=== PATIENT | female | born 1930 | race Caucasian/White ===

== ENCOUNTER 2017-10-17 23:57 | Inpatient (IN) | END 2017-11-04 14:45 | disposition home or self-care (01) | DRG 668 ==

== ENCOUNTER 2019-03-16 16:56 | Inpatient (IN) | payer MEDICARE, OTHER ==
[~2019-03-16] VITALS: Ht 315 cm; Wt 57.0 kg
[~2019-03-16 16:56] MED LIST: ATEN-51 PO; ATOR10TA65 PO; CARI350T29 PO; DIGO125T PO; DULO60CA59 PO; FERR256T PO; LORA10TA3 PO; LOSA100T15 PO; METF100010 PO; PANT40TA4 PO; PREG150C PO; SITA100T11 PO
[2019-03-16] MEDS ORDERED: SOD CHLORIDE 0.9% 1,000 ML IV STA (18:00)
--- NOTE | 2019-03-16 18:54 | ERD ---
ER Documentation Chief Complaint Chief Complaint increased conf p [facility] fall today, hit back of head. no droop/ equal strengt HPI There is an 88-year-old female who presents to the emergency room complaining of generalized weakness for approximately 2 weeks. The patient is now having increasing falls while at home. She lives at home alone. The patient is now had 3 falls in the past 24 to 48 hours. She states that she hit her head but did not lose consciousness. The patient does not take anticoagulants. She has chronic right hip pain that is unchanged. She denies any chest pain or shortness of breath no dysuria urgency or frequency. Primary care physician told her to come to the emergency room today. ROS All systems reviewed and are negative except as per history of present illness. Medications Home Meds Reported Medications Loratadine* (Loratadine*) 10 Mg Tablet, 10 MG PO DAILY, #30 TAB 10/17/17 Carisoprodol* (Carisoprodol*) 350 Mg Tablet, 350 MG PO HS PRN for MUSCLE SPASMS, TAB 10/17/17 Digoxin* (Digitek*) 125 Mcg Tablet, 0.125 MG PO DAILY, TAB 18 Ferrous Gluconate (Iron) Unknown Strength Tablet, 1 TAB PO DAILY, TAB 18 Pregabalin* (Lyrica*) 150 Mg Capsule, 150 MG PO BID, CAP 10/17/17 Pantoprazole* (Pantoprazole*) 40 Mg Tablet.dr, 40 MG PO AC BREAKFAST, TAB 10/17/17 Duloxetine Hcl* (Duloxetine Hcl*) 60 Mg Capsule.dr, 60 MG PO BID, #30 CAP 18 Atorvastatin Calcium (Atorvastatin Calcium) 10 Mg Tablet, 10 MG PO QHS, #30 TAB 18 Atenolol* (Atenolol*) 25 Mg Tablet, 25 MG PO DAILY, #30 TAB 18 Losartan Potassium* (Losartan Potassium*) 100 Mg Tablet, 100 MG PO DAILY, TAB 18 Sitagliptin* (Januvia*) 100 Mg Tablet, 100 MG PO BID, #30 TAB 18 Metformin Hcl* (Metformin Hcl*) 1,000 Mg Tablet, 1000 MG PO WITH BREAKFAST DINNE, #60 TAB 10/17/17 Allergies Allergies: Coded Allergies: Penicillins (Unverified Allergy, Unknown, 10/17/17) PMhx/Soc History of Surgery: Yes (RIGHT HIP SX,RIGHT KNEE ARTHROPLASTY) Anesthesia Reaction: No Hx Neurological Disorder: Yes (NEUROPATHY) Hx Respiratory Disorders: No Hx Cardiac Disorders: Yes (HTN) Hx Psychiatric Problems: No Hx Miscellaneous Medical Probl: Yes (WEAKNESS,PEROIDS OF CONFUSION) Hx Alcohol Use: No Hx Substance Use: No Hx Tobacco Use: No Smoking Status: Never smoker FmHx Family History: No diabetes Physical Exam Vitals Vital Signs Date Temp Pulse Resp B/P (MAP) Pulse Ox O2 O2 Flow FiO2 Time Delivery Rate 03/16/19 97.9 65 16 160/70 99 17:06 (100) Physical Exam Airway is intact Bilateral breath sounds Strong distal pulses No obvious deficits General: Well developed, well nourished, no acute distress Head: Normocephalic, atraumatic Eyes: Pupils equally reactive, EOM intact ENT: Moist mucous membranes Neck: Supple, no lymphadenopathy, No midline tenderness, deformities, step-offs to the cervical spine, full active and passive range of motion without midline pain. Respiratory: Lungs clear bilaterally, no distress, no chest wall tenderness, no crepitus Cardiovascular: RRR, no murmurs, rubs, or gallops Abdominal: Soft, non-tender, non-distended, no peritoneal signs, pelvis is stable : Deferred MSK: No edema, no unilateral swelling, 5/5 strength, no midline tenderness deformities or step-offs to the thoracolumbar spine Neurologic: Alert and oriented, moving all extremities, normal speech, no focal weakness, no cerebellar signs Skin: No ecchymoses or bruising to the chest or abdomen Psych: Normal mood Result Diagram: 03/16/19181803/16/191818 Results 24 hrs Laboratory Tests Test 03/16/19 18:17 03/16/19 18:19 Urine Color YELLOW Urine Clarity CLOUDY Urine pH 5.0 Urine Specific [place] 1.021 Urine Ketones NEGATIVE mg/dL Urine Nitrite NEGATIVE mg/dL Urine Bilirubin 2+ mg/dL Urine Urobilinogen NEGATIVE mg/dL Urine Leukocyte Esterase TRACE [place]/ul Urine Microscopic RBC 1 /HPF Urine Microscopic WBC 5 /HPF Urine Squamous Epithelial Cells MODERATE /HPF Urine Bacteria FEW /HPF Urine Mucus FEW /HPF Urine Hemoglobin NEGATIVE mg/dL Urine Glucose NEGATIVE mg/dL Urine Total Protein NEGATIVE mg/dl White Blood Count 9.5 10^3/ul Red Blood Count 4.20 10^6/ul Hemoglobin 12.2 g/dl Hematocrit 37.8 % Mean Corpuscular Volume 90.0 fl Mean Corpuscular Hemoglobin 29.0 pg Mean Corpuscular Hemoglobin Concent 32.3 g/dl Red Cell Distribution Width 14.0 % Platelet Count 403 10^3/UL Mean Platelet Volume 10.1 fl Immature Granulocytes % 0.400 % Neutrophils % 74.3 % Lymphocytes % 17.5 % Monocytes % 5.7 % Eosinophils % 0.8 % Basophils % 1.3 % Nucleated Red Blood Cells % 0.0 /100WBC Immature Granulocytes # 0.040 10^3/ul Neutrophils # 7.1 10^3/ul Lymphocytes # 1.7 10^3/ul Monocytes # 0.5 10^3/ul Eosinophils # 0.1 10^3/ul Basophils # 0.1 10^3/ul Nucleated Red Blood Cells # 0.0 10^3/ul Sodium Level 144 mmol/L Potassium Level 5.5 mmol/L Chloride Level 105 mmol/L Carbon Dioxide Level 25 mmol/L Anion Gap 14 Blood Urea Nitrogen 44 mg/dl Creatinine 2.28 mg/dl Est Glomerular Filtrat Rate mL/min mL/min Glucose Level 146 mg/dl Calcium Level 10.5 mg/dl Total Bilirubin 0.2 mg/dl Direct Bilirubin 0.00 mg/dl Indirect Bilirubin 0.2 mg/dl Aspartate Amino Transf (AST/SGOT) 16 IU/L Alanine Aminotransferase (ALT/SGPT) 12 IU/L Alkaline Phosphatase 97 IU/L Troponin I < 0.012 ng/ml Total Protein 8.3 g/dl Albumin 4.5 g/dl Globulin 3.80 g/dl Albumin/Globulin Ratio 1.18 Current Medications Medications Dose Sig/Carlos Start Time Status Last (Trade) Ordered Route PRN Stop Time Admin Dose Reason Admin Sodium 1,000 ml @ Q1H STAT 03/16/19 DC 03/16/19 Chloride 1,000 mls/hr IV 18:00 03/16/19 18:17 18:59 Ondansetron 4 mg BRIDGE ORDER 03/16/19 HCl (Zofran PRN IV 20:00 03/17/19 Inj) NAUSEA/VOMITI 19:59 NG 650 mg ER BRIDGE 03/16/19 Acetaminophen PRN PO 20:00 03/17/19 (Tylenol .MILD PAIN 19:59 Tab) 1-3 OR TEMP Procedures/MDM EKG, MONITORS, & DIAGNOSTIC IMAGING: EKG: I reviewed and interpreted a 12-lead EKG. Rhythm: Normal sinus rhythm ST Changes: No contiguous ST segment elevations T waves: No contiguous T wave inversions Impression: [No evidence of acute cardiac ischemia] Chest x-ray: I reviewed and interpreted a 1 view of the chest Mediastinum: No enlargement Cardiac silhouette: No cardiomegaly Airspace: Clear lung ramirez bilaterally without evidence of pneumothorax Bones: No evidence of fracture CT brain: PENDING LAB INTERPRETATION: I reviewed the laboratory testing and it shows acute renal insufficiency, prerenal MEDICAL DECISION MAKING: The patient presents with increased frequency of falls. This appears to be secondary to generalized decline rather than acute issue. The patient has no focal deficits on neurologic examination. Unfortunately the patient lives home alone. I am concerned about her living situation given the frequency of falls. I will discussed the case with her primary care physician and possibly recommend inpatient hospitalization for closer monitoring and possible home health versus rehab assignment. ER COURSE: * Laboratory testing reveals dehydration with acute renal insufficiency, lavatory testing suggest prerenal. The patient was given IV fluids. Potassium is only mildly elevated at 5.5. Should be fine for medical surgical admission. No EKG changes. * CT brain is pending at this time to be followed by oncoming ER physician and admitting team. CONSULTATION: [None] DISPOSITION PLAN: Accepting care team and consultations: I discussed the current laboratory data, diagnostic imaging and emergency care provided. Admitting team: Dr. Sandra on-call for patient's primary care physician Admitting team indication: Insurance directed Departure Diagnosis: Primary Impression: Generalized weakness Additional Impressions: Acute renal insufficiency Dehydration, moderate Condition: Stable JOSEFA MCKENZIE MD Mar 16, 2019 18:54
[2019-03-16] MEDS ORDERED: ONDANSETRON 4 MG INJ IV PRN ×2 (20:00→22:30)
[2019-03-16] MEDS ORDERED: ACETAMINOPHEN 325 MG TAB PO PRN ×2 (20:00→22:30)
[2019-03-16] MEDS ORDERED: MAGNESIUM HYDROXIDE 30ML CUP PO PRN (22:30)
[2019-03-16] MEDS ORDERED: CARISOPRODOL 350 MG TAB PO PRN (22:30)
[2019-03-16] MEDS ORDERED: DOCUSATE SODIUM 100 MG CAP PO PRN (22:30)
[2019-03-16] MEDS ORDERED: BISACODYL 10 MG SUPP PR PRN (22:30)
[2019-03-16] MEDS ORDERED: NITROGLYCERIN (SL) 0.4 MG TAB SL PRN (22:30)
[2019-03-16] MEDS ORDERED: NACL 0.9% 3 ML SYG IV SCH (22:30)
[2019-03-17] MEDS ORDERED: LEVOFLOXACIN 500 MG TAB PO ONE (06:00)
[2019-03-17] MEDS: PANTOPRAZOLE (EC) 40 MG TAB PO SCH (06:45)
[2019-03-17] MEDS: SOD CHLORIDE 0.9% 1,000 ML IV SCH ×4 (06:45→17:59)
[2019-03-17] MEDS ORDERED: GLUCAGON 1 MG INJ IM PRN (08:00)
[2019-03-17] MEDS ORDERED: DEXTROSE 50% 50 ML SYRINGE IV PRN ×2 (08:00)
[2019-03-17] MEDS ORDERED: MAGNESIUM SULFATE 2 GM/50 ML 50 ML IVPB ONE (08:00)
[2019-03-17] MEDS ORDERED: GLUCOSE GEL 15 GRAM TUBE PO PRN ×2 (08:00)
[2019-03-17] MEDS: INSULIN ASPART [NOVOLOG] 3 ML PEN SC SCH ×4 (08:00→20:39)
[2019-03-17] MEDS ORDERED: GLUCOSE GEL 15 GRAM TUBE BUCCAL PRN (08:00)
[2019-03-17] MEDS: HEPARIN 5,000 UNIT/1 ML VIAL SC SCH ×2 (08:32→20:46)
[2019-03-17] MEDS: LINAGLIPTIN 5 MG TABLET PO SCH (08:33)
[2019-03-17] MEDS: LORATADINE 10 MG TAB PO SCH (08:33)
[2019-03-17] MEDS: DULOXETINE 30 MG CAP DR PO SCH ×2 (08:34→20:32)
[2019-03-17] MEDS: AMLODIPINE 2.5 MG TAB PO SCH ×2 (08:34→20:33)
[2019-03-17] MEDS: PREGABALIN 75 MG CAP PO SCH ×2 (08:35→20:32)
[2019-03-17] MEDS ORDERED: LOSARTAN 50 MG TAB PO SCH (09:00)
[2019-03-17] MEDS ORDERED: LEVOFLOXACIN 500 MG TAB PO SCH (09:00)
--- NOTE | 2019-03-17 09:13 | HP ---
Date/Time of Note Date/Time of Note DATE: 03/17/19 TIME: 08:52 Assessment/Plan VTE Prophylaxis SCD applied (from Nsg): Yes Pharmacological prophylaxis: heparin Lines/Catheters IV Catheter Type (from Nrsg): Saline Lock Assessment/Plan Problems: (1) Digoxin toxicity Status: Acute Comment: Level nearly twice upper limit of normal. Likely responsible for much of the neurological symptoms pt. has been experiencing. Per my reading and d/w pharmacy, no need for digibind unless pt. w/ cardiac symptoms including EKG changes and bradycardia. We will monitor w/ tele, serial EKG's daily digoxin level. Cardiology consult. Low threshold to give digibind should it be necessary. Qualifiers: Encounter type: initial encounter Injury intent: accidental or unintentional Qualified Codes: T46.0X1A - Poisoning by cardiac-stimulant glycosides and drugs of similar action, accidental (unintentional), initial encounter (2) Dehydration, moderate Status: Acute Comment: NS bolus given in ER and pt. on NS at 100 mL per hour. Will monitor. (3) Hyperkalemia Onset Date: ~ 03/2019 Status: Resolved Comment: Level was 5.5 but has come down w/ hydration. (4) Hypercalcemia Status: Resolved Comment: Was 10.5 but has come down w/ hydration (5) Acute renal insufficiency Status: Acute Comment: Improving w/ hydration. Previously presented w/ ARF so not certain what this patient's baseline creatinine is. (6) Generalized weakness Status: Acute Comment: Likely due to digoxin toxicity. Will order PT and monitor as digoxin level decreases. If this continues, may need ARU or transfer to SNF. (7) Frequent falls Status: Acute Comment: Likely due to digoxin toxicity. Will order PT and monitor as digoxin level decreases. If this continues, may need ARU or transfer to SNF. 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 Cont. linagliptin. Carb controlled diet. Monitor glucose. Add insulin if hyperglycemic. (9) Hypertension Status: Chronic Comment: BP elevated. Hold beta-ge[place] given digoxin toxicity. Will start amlodipine 2.5 mg bid (10) Hyperlipidemia Status: Chronic Comment: Cont. statin (11) Lumbar stenosis with neurogenic claudication Status: Chronic Comment: Cont. lyrica, duloxetine, carisoprodol prn (12) Major depressive disorder, recurrent, in full remission Status: Chronic Comment: cont. duloxetine (13) Left maxillary sinusitis Status: Acute Comment: Seen on CT head. Will add levofloxacin x 1 week. Cont. loratadine and start fluticasone nasal spray 2 sprays in each nostril daily. (14) Allergic rhinitis Status: Chronic Comment: Cont. loratadine and start fluticasone nasal spray 2 sprays in each nostril daily. Result Diagram: 03/17/19 0603 03/17/19 0603 Results 24hrs Laboratory Tests Test 03/16/19 18:17 03/16/19 18:19 03/17/19 06:03 03/17/19 08:29 Urine Color YELLOW Urine Clarity CLOUDY A Urine pH 5.0 Urine Specific [place] 1.021 Urine Ketones NEGATIVE Urine Nitrite NEGATIVE Urine Bilirubin 2+ H Urine Urobilinogen NEGATIVE Urine Leukocyte Esterase TRACE A Urine Microscopic RBC 1 Urine Microscopic WBC 5 Urine Squamous MODERATE Epithelial Cells Urine Bacteria FEW A Urine Mucus FEW A Urine Hemoglobin NEGATIVE Urine Glucose NEGATIVE Urine Total Protein NEGATIVE Digoxin Level 3.8 *H 3.8 *H White Blood Count 9.5 # 7.2 # Red Blood Count 4.20 # 3.84 L Hemoglobin 12.2 # 11.1 L Hematocrit 37.8 # 34.0 L Mean Corpuscular Volume 90.0 88.5 Mean Corpuscular 29.0 28.9 L Hemoglobin Mean Corpuscular 32.3 32.6 Hemoglobin Concent Red Cell Distribution 14.0 14.0 Width Platelet Count 403 324 Mean Platelet Volume 10.1 10.2 Immature Granulocytes % 0.400 0.300 Neutrophils % 74.3 61.6 Lymphocytes % 17.5 25.0 Monocytes % 5.7 9.5 Eosinophils % 0.8 1.9 Basophils % 1.3 1.7 Nucleated Red Blood 0.0 0.0 Cells % Immature Granulocytes # 0.040 H 0.020 Neutrophils # 7.1 4.5 Lymphocytes # 1.7 1.8 Monocytes # 0.5 0.7 Eosinophils # 0.1 0.1 Basophils # 0.1 0.1 Nucleated Red Blood 0.0 0.0 Cells # Sodium Level 144 145 H Potassium Level 5.5 H 5.1 Chloride Level 105 110 Carbon Dioxide Level 25 26 Anion Gap 14 H 9 # Blood Urea Nitrogen 44 H 38 H Creatinine 2.28 H 1.70 H Est Glomerular Filtrat Rate mL/min Glucose Level 146 95 # Calcium Level 10.5 H 9.9 Total Bilirubin 0.2 0.3 Direct Bilirubin 0.00 0.00 Indirect Bilirubin 0.2 0.3 Aspartate Amino 16 17 Transf (AST/SGOT) Alanine 12 L 12 L Aminotransferase (ALT/SG PT) Alkaline Phosphatase 97 74 Troponin I < 0.012 Total Protein 8.3 H 7.1 # Albumin 4.5 3.9 Globulin 3.80 H 3.20 Albumin/Globulin Ratio 1.18 1.21 Hemoglobin A1c 5.2 Magnesium Level 1.4 L Triglycerides Level 168 H Cholesterol Level 126 LDL Cholesterol, 52 Calculated HDL Cholesterol 40 Cholesterol/HDL Ratio 3.1 Thyroid Stimulating 2.030 Hormone (TSH) Bedside Glucose 85 HPI/ROS Admit Date/Time Admit Date/Time 03/16/2019 @ 1800 Hx of Present Illness 88 y/o C F w/ h/o T2DM, HTN, hyperlipidemia, depression, allergic rhinitis, PUD, atrial tachycardia, acute renal failure, anemia, leg ulcer, cellulitis, MRSA (+), in [facility] until last several weeks when she began to experience gradual decline. Increase in falling at home. Intermittently confused. Yesterday daughter called and stated pt. was altered and hallucinating. Recommended to bring pt. to ER. In ER pt. not hallucinating or confused. However, w/ h/o re cent falls it was recommended pt. be admitted for PT, possible ARU vs. SNF care. However, subsequently it was found that digoxin level was 3.8 (ULN 2.0). Pt. upgraded to tele and has remained in ER waiting for bed space. ROS Constitutional: fatigue Eyes: no complaints ENT: no complaints Respiratory: no complaints Cardiovascular: no complaints Gastrointestinal: no complaints Genitourinary: no complaints Musculoskeletal: no complaints Neurologic: confusion (intermittent and mild), focal-weakness (falls) PMH/Family/Social Past Medical History Medical History: diabetes, high cholesterol, hypertension, peptic ulcer disease, renal disease, urinary tract infection, other (allergic rhinitis, spinal stenosis, depression) Medications Current Medications Ondansetron HCl (Zofran Inj) 4 mg BRIDGE ORDER PRN IV NAUSEA/VOMITING; Start 03/16/19 at 20:00; Stop 03/17/19 at 19:59 Acetaminophen (Tylenol Tab) 650 mg ER BRIDGE PRN PO .MILD PAIN 1-3 OR TEMP; Start 03/16/19 at 20:00; Stop 03/17/19 at 19:59 Atorvastatin Calcium (Lipitor) 10 mg QHS PO ; Start 03/17/19 at 21:00 Carisoprodol (Soma) 350 mg HS PRN PO MUSCLE SPASMS; Start 03/16/19 at 22:30 Duloxetine HCl (Cymbalta) 60 mg BID PO Last administered on 03/17/19at 08:34; Admin Dose 60 MG; Start 03/17/19 at 09:00 Loratadine (Claritin) 10 mg DAILY PO Last administered on 03/17/19 08:33; Admin Dose 10 MG; Start 03/17/19 at 09:00 Losartan Potassium (Cozaar) 100 mg DAILY PO Last administered on 03/17/19at 08:34; Admin Dose 100 MG; Start 03/17/19 at 09:00 Pantoprazole (Protonix Tab) 40 mg AC BREAKFAST PO Last administered on 03/17/19at 06:45; Admin Dose 40 MG; Start 03/17/19 at 07:00 Pregabalin (Lyrica) 150 mg BID PO Last administered on 03/17/19at 08:35; Admin Dose 150 MG; Start 03/17/19 at 09:00 Linagliptin (Tradjenta) 5 mg DAILY PO Last administered on 03/17/19at 08:33; Admin Dose 5 MG; Start 03/17/19 at 09:00 Sodium Chloride 1,000 ml @ 100 mls/hr Q10H IV Last administered on 03/17/19at 06:45; Admin Dose 100 MLS/HR; Start 03/16/19 at 22:18 IV Flush (NS 3 ml) 3 ml PER PROTOCOL IV ; Start 03/16/19 at 22:30 Ondansetron HCl (Zofran Inj) 4 mg Q6H PRN IV NAUSEA/VOMITING; Start 03/16/19 at 22:30 Nitroglycerin (Nitroglycerin (Sl Tab) 0.4 Mg) 1 tab Q5M PRN SL .CHEST PAIN; Start 03/16/19 at 22:30 Acetaminophen (Tylenol Tab) 650 mg Q6H PRN PO .PAIN 1-3 OR TEMP; Start 03/16/19 at 22:30 Acetaminophen/ Hydrocodone Bitart ([place] (5/325)) 1 tab Q6H PRN PO .PAIN 4-6; Start 03/16/19 at 22:30 Acetaminophen/ Hydrocodone Bitart ([place] (5/325)) 2 tab Q6H PRN PO .PAIN 7-10; Start 03/16/19 at 22:30 Docusate Sodium (Colace) 100 mg Q12H PRN PO .CONSTIPATION; Start 03/16/19 at 22:30 Magnesium Hydroxide (Milk Of Mag) 30 ml DAILY PRN PO .CONSTIPATION; Start 03/16/19 at 22:30 Bisacodyl (Dulcolax Supp) 10 mg DAILY PRN OR .CONSTIPATION; Start 03/16/19 at 22:30 Heparin Sodium (Porcine) (Heparin (5000 Units/1ml)) 5,000 unit Q12 SC Last administered on 03/17/19at 08:32; Admin Dose 5,000 UNIT; Start 03/17/19 at 09:00 Levofloxacin (Levaquin) 250 mg DAILY@06 PO ; Start 03/18/19 at 06:00; Stop 03/24/19 at 05:59 Insulin Aspart (Novolog Insulin Pen) NOVOLOG *MILD* ALGORITHM WITH MEALS BEDTIME SC ; Start 03/17/19 at 08:00 Magnesium Sulfate 50 ml @ 25 mls/hr ONCE ONCE IVPB Last administered on 03/17/19at 08:06; Admin Dose 25 MLS/HR; Start 03/17/19 at 08:00; Stop 03/17/19 at 09:59 Amlodipine Besylate (Norvasc) 2.5 mg BID PO Last administered on 03/17/19at 08:34; Admin Dose 2.5 MG; Start 03/17/19 at 09:00 Miscellaneous Information 1 ea NOTE XX ; Start 03/17/19 at 08:00 Glucose (Glutose) 15 gm Q15M PRN PO DECREASED GLUCOSE; Start 03/17/19 at 08:00 Glucose (Glutose) 22.5 gm Q15M PRN PO DECREASED GLUCOSE; Start 03/17/19 at 08:00 Dextrose (D50w Syringe) 25 ml Q15M PRN IV DECREASED GLUCOSE; Start 03/17/19 at 08:00 Dextrose (D50w Syringe) 50 ml Q15M PRN IV DECREASED GLUCOSE; Start 03/17/19 at 08:00 Glucagon (Glucagen) 1 mg Q15M PRN IM DECREASED GLUCOSE; Start 03/17/19 at 08:00 Glucose (Glutose) 15 gm Q15M PRN BUCCAL DECREASED GLUCOSE; Start 03/17/19 at 08:00 Coded Allergies: Penicillins (Unverified Allergy, Unknown, 10/17/17) Past Surgical History Past Surgical Hx: other (total abdominal hysterectomy, right hip surgery, open knee surgery for an infection, LLE ulcer, bladder suspension 3 times, L hip fracture repair, cataracts) Family History Significant Family History: heart disease, diabetes, hypertension, other (blood clot) Social History , 3 children, 2 living Alcohol Use: occasionally Smoking Status: Never smoker Drug Use: none Exam/Review of Systems Vital Signs Vitals VS - Last 72 Hours, by Label Date Temp Pulse Resp B/P (MAP) Pulse Ox O2 O2 Flow FiO2 Time Delivery Rate 03/17/19 59 16 149/58 98 Room Air 08:35 (88) 03/17/19 98.1 58 16 161/68 97 Room Air 06:30 (99) 03/17/19 78 16 155/64 97 Room Air 04:38 (94) 03/17/19 60 16 164/64 98 Room Air 03:46 (97) 03/17/19 60 22 164/67 95 Room Air 00:00 (99) 03/16/19 63 20 153/61 99 Room Air 22:00 (91) 03/16/19 67 17 147/65 98 Room Air 21:00 (92) 03/16/19 97.9 67 16 164/77 99 Room Air 20:46 (106) 03/16/19 97.9 65 16 160/70 99 17:06 (100) Vital Signs Date Temp Pulse Resp B/P (MAP) Pulse Ox O2 O2 Flow FiO2 Time Delivery Rate 03/17/19 59 16 149/58 98 Room Air 08:35 (88) 03/17/19 98.1 06:30 Exam Constitutional: alert, oriented, frail Psych: no complaints, nl mood/affect Eyes: nl conjunctiva, EOMI, nl lids, nl sclera, PERRL ENMT: nl external ears & nose, nl lips & teeth, mucosa pink and moist Neck: supple, non-tender; No bruits, No masses, No thyromegaly Respiratory: clear to auscultation, normal air movement Cardiovascular: regular rate and rhythm, nl pulses; No edema, No murmurs/extra sounds, No rub Gastrointestinal: soft, nl liver, spleen, non-tender, bowel sounds; No mass, No rebound or guarding Musculoskeletal: nl extremities to inspection Extremities: normal pulses; No cyanosis, No clubbing, No edema Neurological: GUIDANCE SERVICES COORDINATOR II-XII intact, nl mental status (oriented x 3), nl speech, nl strength PASCUAL CORNELIUS MD Mar 17, 2019 09:04
[2019-03-17] MEDS: FLUTICASONE 0.05% 16 GM NAS SPRAY NASAL SCH (10:00)
--- NOTE | 2019-03-17 15:35 | CONS ---
Assessment/Plan Assessment/Plan Hospital Course (Demo Recall) Digoxin toxicity Acute kidney injury, improving Borderline blood pressure, improved Preserved ejection fraction History of atrial tachycardia Diabetes Patient presented with acute kidney injury, hyperkalemia and elevated digoxin level Renal function has improved Telemetry reviewed with no significant arrhythmias, blood pressure remained stable Will DC ARB at the current time Continue IV fluids as tolerated Continue on telemetry Consultation Date/Type/Reason Admit Date/Time 03/16/2019 @ 1800 Type of Consult Cardiology Reason for Consultation Elevated digoxin level Date/Time of Note DATE: 03/17/19 TIME: 15:30 Hx of Present Illness This is an 88-year-old female with past medical history of atrial tachycardia, labile blood pressure who presents with alterations in mental status and falls. History is obtained from the patient as well as ER doctor and nursing staff. There is question regarding altered mental status. I spoke to your doctor, patient was ambulating in the hallway to the bathroom with assistance. Patient denies any chest pain, shortness of breath or palpitations. She did have some dizziness yesterday but this has since resolved. 12 point review of systems was performed with all pertinent positives and negatives mentioned above and all else is negative Past Medical History Atrial tachycardia Medical History: high cholesterol, hypertension Home Meds Reported Medications Loratadine* (Loratadine*) 10 Mg Tablet, 10 MG PO DAILY, #30 TAB 10/17/17 Carisoprodol* (Carisoprodol*) 350 Mg Tablet, 350 MG PO HS PRN for MUSCLE SPASMS, TAB 10/17/17 Digoxin* (Digitek*) 125 Mcg Tablet, 0.125 MG PO DAILY, TAB 10/17/17 Ferrous Gluconate (Iron) Unknown Strength Tablet, 1 TAB PO DAILY, TAB 10/17/17 Pregabalin* (Lyrica*) 150 Mg Capsule, 150 MG PO BID, CAP 10/17/17 Pantoprazole* (Pantoprazole*) 40 Mg Tablet.dr, 40 MG PO AC BREAKFAST, TAB 10/17/17 Duloxetine Hcl* (Duloxetine Hcl*) 60 Mg Capsule.dr, 60 MG PO BID, #30 CAP 10/17/17 Atorvastatin Calcium (Atorvastatin Calcium) 10 Mg Tablet, 10 MG PO QHS, #30 TAB 10/17/17 Atenolol* (Atenolol*) 25 Mg Tablet, 25 MG PO DAILY, #30 TAB 10/17/17 Losartan Potassium* (Losartan Potassium*) 100 Mg Tablet, 100 MG PO DAILY, TAB 10/17/17 Sitagliptin* (Januvia*) 100 Mg Tablet, 100 MG PO BID, #30 TAB 10/17/17 Metformin Hcl* (Metformin Hcl*) 1,000 Mg Tablet, 1000 MG PO WITH BREAKFAST DINNE, #60 TAB 10/17/17 Medications Current Medications Ondansetron HCl (Zofran Inj) 4 mg BRIDGE ORDER PRN IV NAUSEA/VOMITING; Start 03/16/19 at 20:00; Stop 03/17/19 at 19:59 Acetaminophen (Tylenol Tab) 650 mg ER BRIDGE PRN PO .MILD PAIN 1-3 OR TEMP; Start 03/16/19 at 20:00; Stop 03/17/19 at 19:59 Atorvastatin Calcium (Lipitor) 10 mg QHS PO ; Start 03/17/19 at 21:00 Carisoprodol (Soma) 350 mg HS PRN PO MUSCLE SPASMS; Start 03/16/19 at 22:30 Duloxetine HCl (Cymbalta) 60 mg BID PO Last administered on 03/17/19at 08:34; Admin Dose 60 MG; Start 03/17/19 at 09:00 Loratadine (Claritin) 10 mg DAILY PO Last administered on 03/17/19 08:33; Admin Dose 10 MG; Start 03/17/19 at 09:00 Losartan Potassium (Cozaar) 100 mg DAILY PO Last administered on 03/17/19at 08:34; Admin Dose 100 MG; Start 03/17/19 at 09:00 Pantoprazole (Protonix Tab) 40 mg AC BREAKFAST PO Last administered on 03/17/19at 06:45; Admin Dose 40 MG; Start 03/17/19 at 07:00 Pregabalin (Lyrica) 150 mg BID PO Last administered on 03/17/19 08:35; Admin D ose 150 MG; Start 03/17/19 at 09:00 Linagliptin (Tradjenta) 5 mg DAILY PO Last administered on 03/17/19 08:33; Admin Dose 5 MG; Start 03/17/19 at 09:00 Sodium Chloride 1,000 ml @ 100 mls/hr Q10H IV Last administered on 03/17/19at 06:45; Admin Dose 100 MLS/HR; Start 03/16/19 at 22:18 IV Flush (NS 3 ml) 3 ml PER PROTOCOL IV ; Start 03/16/19 at 22:30 Ondansetron HCl (Zofran Inj) 4 mg Q6H PRN IV NAUSEA/VOMITING; Start 03/16/19 at 22:30 Nitroglycerin (Nitroglycerin (Sl Tab) 0.4 Mg) 1 tab Q5M PRN SL .CHEST PAIN; Start 03/16/19 at 22:30 Acetaminophen (Tylenol Tab) 650 mg Q6H PRN PO .PAIN 1-3 OR TEMP; Start 03/16/19 at 22:30 Acetaminophen/ Hydrocodone Bitart ([place] (5/325)) 1 tab Q6H PRN PO .PAIN 4-6; Start 03/16/19 at 22:30 Acetaminophen/ Hydrocodone Bitart ([place] (5/325)) 2 tab Q6H PRN PO .PAIN 7-10; Start 03/16/19 at 22:30 Docusate Sodium (Colace) 100 mg Q12H PRN PO .CONSTIPATION; Start 03/16/19 at 22:30 Magnesium Hydroxide (Milk Of Mag) 30 ml DAILY PRN PO .CONSTIPATION; Start 03/16/19 at 22:30 Bisacodyl (Dulcolax Supp) 10 mg DAILY PRN [place] .CONSTIPATION; Start 03/16/19 at 22:30 Heparin Sodium (Porcine) (Heparin (5000 Units/1ml)) 5,000 unit Q12 SC Last administered on 03/17/19at 08:32; Admin Dose 5,000 UNIT; Start 03/17/19 at 09:00 Levofloxacin (Levaquin) 250 mg DAILY@06 PO ; Start 03/18/19 at 06:00; Stop 03/24/19 at 05:59 Insulin Aspart (Novolog Insulin Pen) NOVOLOG *MILD* ALGORITHM WITH MEALS BEDTIME SC ; Start 03/17/19 at 08:00 Amlodipine Besylate (Norvasc) 2.5 mg BID PO Last administered on 03/17/19at 08:34; Admin Dose 2.5 MG; Start 03/17/19 at 09:00 Miscellaneous Information 1 ea NOTE XX ; Start 03/17/19 at 08:00 Glucose (Glutose) 15 gm Q15M PRN PO DECREASED GLUCOSE; Start 03/17/19 at 08:00 Glucose (Glutose) 22.5 gm Q15M PRN PO DECREASED GLUCOSE; Start 03/17/19 at 08:00 Dextrose (D50w Syringe) 25 ml Q15M PRN IV DECREASED GLUCOSE; Start 03/17/19 at 08:00 Dextrose (D50w Syringe) 50 ml Q15M PRN IV DECREASED GLUCOSE; Start 03/17/19 at 08:00 Glucagon (Glucagen) 1 mg Q15M PRN IM DECREASED GLUCOSE; Start 03/17/19 at 08:00 Glucose (Glutose) 15 gm Q15M PRN BUCCAL DECREASED GLUCOSE; Start 03/17/19 at 08:00 Fluticasone Propionate (Flonase 0.05% Nasal) 2 spray DAILY NASAL ; Start 03/17/19 at 10:00 Allergies: Coded Allergies: Penicillins (Unverified Allergy, Unknown, 10/17/17) Past Surgical History Past Surgical Hx: other (total abdominal hysterectomy, right hip surgery, open knee surgery for an infection, LLE ulcer, bladder suspension 3 times, L hip fracture repair, cataracts) Social History Alcohol Use: occasionally Smoking Status: Never smoker Drug Use: none Exam/Review of Systems Vital Signs Vitals Vital Signs Date Temp Pulse Resp B/P (MAP) Pulse Ox O2 O2 Flow FiO2 Time Delivery Rate 03/17/19 97.9 61 17 130/65 97 Room Air 15:21 (86) Exam Exam Sleeping but easily arousable, able to give history, no apparent distress, nurse at bedside Head: normocephalic Respiratory: other (Coarse breath sounds bilaterally, no wheezing) Cardiovascular: regular rate and rhythm (S1-S2 heard) Gastrointestinal: soft, non-tender, bowel sounds Extremities: edema (Trace edema) Labs Result Diagram: 03/17/19 0603 03/17/19 0603 Results 24hrs Laboratory Tests Test 03/16/19 18:17 03/16/19 18:19 03/17/19 06:03 03/17/19 08:29 Urine Color YELLOW Urine Clarity CLOUDY A Urine pH 5.0 Urine Specific [place] 1.021 Urine Ketones NEGATIVE Urine Nitrite NEGATIVE Urine Bilirubin 2+ H Urine Urobilinogen NEGATIVE Urine Leukocyte Esterase TRACE A Urine Microscopic RBC 1 Urine Microscopic WBC 5 Urine Squamous MODERATE Epithelial Cells Urine Bacteria FEW A Urine Mucus FEW A Urine Hemoglobin NEGATIVE Urine Glucose NEGATIVE Urine Total Protein NEGATIVE Digoxin Level 3.8 *H 3.8 *H White Blood Count 9.5 # 7.2 # Red Blood Count 4.20 # 3.84 L Hemoglobin 12.2 # 11.1 L Hematocrit 37.8 # 34.0 L Mean Corpuscular Volume 90.0 88.5 Mean Corpuscular 29.0 28.9 L Hemoglobin Mean Corpuscular 32.3 32.6 Hemoglobin Concent Red Cell Distribution 14.0 14.0 Width Platelet Count 403 324 Mean Platelet Volume 10.1 10.2 Immature Granulocytes % 0.400 0.300 Neutrophils % 74.3 61.6 Lymphocytes % 17.5 25.0 Monocytes % 5.7 9.5 Eosinophils % 0.8 1.9 Basophils % 1.3 1.7 Nucleated Red Blood 0.0 0.0 Cells % Immature Granulocytes # 0.040 H 0.020 Neutrophils # 7.1 4.5 Lymphocytes # 1.7 1.8 Monocytes # 0.5 0.7 Eosinophils # 0.1 0.1 Basophils # 0.1 0.1 Nucleated Red Blood 0.0 0.0 Cells # Sodium Level 144 145 H Potassium Level 5.5 H 5.1 Chloride Level 105 110 Carbon Dioxide Level 25 26 Anion Gap 14 H 9 # Blood Urea Nitrogen 44 H 38 H Creatinine 2.28 H 1.70 H Est Glomerular Filtrat Rate mL/min Glucose Level 146 95 # Calcium Level 10.5 H 9.9 Total Bilirubin 0.2 0.3 Direct Bilirubin 0.00 0.00 Indirect Bilirubin 0.2 0.3 Aspartate Amino 16 17 Transf (AST/SGOT) Alanine 12 L 12 L Aminotransferase (ALT/SG PT) Alkaline Phosphatase 97 74 Troponin I < 0.012 Total Protein 8.3 H 7.1 # Albumin 4.5 3.9 Globulin 3.80 H 3.20 Albumin/Globulin Ratio 1.18 1.21 Hemoglobin A1c 5.2 Magnesium Level 1.4 L Triglycerides Level 168 H Cholesterol Level 126 LDL Cholesterol, 52 Calculated HDL Cholesterol 40 Cholesterol/HDL Ratio 3.1 Thyroid Stimulating 2.030 Hormone (TSH) Bedside Glucose 85 Test 03/17/19 13:25 Bedside Glucose 120 Imaging Imaging ECG sinus rhythm at 60 bpm, QRS 80 ms, septal Q waves, nonspecific ST of normalities Medications Medications Current Medications Ondansetron HCl (Zofran Inj) 4 mg BRIDGE ORDER PRN IV NAUSEA/VOMITING; Start 03/16/19 at 20:00; Stop 03/17/19 at 19:59 Acetaminophen (Tylenol Tab) 650 mg ER BRIDGE PRN PO .MILD PAIN 1-3 OR TEMP; Start 03/16/19 at 20:00; Stop 03/17/19 at 19:59 Atorvastatin Calcium (Lipitor) 10 mg QHS PO ; Start 03/17/19 at 21:00 Carisoprodol (Soma) 350 mg HS PRN PO MUSCLE SPASMS; Start 03/16/19 at 22:30 Duloxetine HCl (Cymbalta) 60 mg BID PO Last administered on 03/17/19at 08:34; Admin Dose 60 MG; Start 03/17/19 at 09:00 Loratadine (Claritin) 10 mg DAILY PO Last administered on 03/17/19at 08:33; Admin Dose 10 MG; Start 03/17/19 at 09:00 Losartan Potassium (Cozaar) 100 mg DAILY PO Last administered on 03/17/19at 08:34; Admin Dose 100 MG; Start 03/17/19 at 09:00 Pantoprazole (Protonix Tab) 40 mg AC BREAKFAST PO Last administered on 03/17/19at 06:45; Admin Dose 40 MG; Start 03/17/19 at 07:00 Pregabalin (Lyrica) 150 mg BID PO Last administered on 03/17/19at 08:35; Admin Dose 150 MG; Start 03/17/19 at 09:00 Linagliptin (Tradjenta) 5 mg DAILY PO Last administered on 03/17/19at 08:33; Admin Dose 5 MG; Start 03/17/19 at 09:00 Sodium Chloride 1,000 ml @ 100 mls/hr Q10H IV Last administered on 03/17/19at 06:45; Admin Dose 100 MLS/HR; Start 03/16/19 at 22:18 IV Flush (NS 3 ml) 3 ml PER PROTOCOL IV ; Start 03/16/19 at 22:30 Ondansetron HCl (Zofran Inj) 4 mg Q6H PRN IV NAUSEA/VOMITING; Start 03/16/19 at 22:30 Nitroglycerin (Nitroglycerin (Sl Tab) 0.4 Mg) 1 tab Q5M PRN SL .CHEST PAIN; Start 03/16/19 at 22:30 Acetaminophen (Tylenol Tab) 650 mg Q6H PRN PO .PAIN 1-3 OR TEMP; Start 03/16/19 at 22:30 Acetaminophen/ Hydrocodone Bitart ([place] (5/325)) 1 tab Q6H PRN PO .PAIN 4-6; Start 03/16/19 at 22:30 Acetaminophen/ Hydrocodone Bitart ([place] (5/325)) 2 tab Q6H PRN PO .PAIN 7-10; Start 03/16/19 at 22:30 Docusate Sodium (Colace) 100 mg Q12H PRN PO .CONSTIPATION; Start 03/16/19 at 22:30 Magnesium Hydroxide (Milk Of Mag) 30 ml DAILY PRN PO .CONSTIPATION; Start 03/16/19 at 22:30 Bisacodyl (Dulcolax Supp) 10 mg DAILY PRN [place] .CONSTIPATION; Start 03/16/19 at 22:30 Heparin Sodium (Porcine) (Heparin (5000 Units/1ml)) 5,000 unit Q12 SC Last administered on 03/17/19at 08:32; Admin Dose 5,000 UNIT; Start 03/17/19 at 09:00 Levofloxacin (Levaquin) 250 mg DAILY@06 PO ; Start 03/18/19 at 06:00; Stop 03/24/19 at 05:59 Insulin Aspart (Novolog Insulin Pen) NOVOLOG *MILD* ALGORITHM WITH MEALS BEDTIME SC ; Start 03/17/19 at 08:00 Amlodipine Besylate (Norvasc) 2.5 mg BID PO Last administered on 03/17/19at 08:34; Admin Dose 2.5 MG; Start 03/17/19 at 09:00 Miscellaneous Information 1 ea NOTE XX ; Start 03/17/19 at 08:00 Glucose (Glutose) 15 gm Q15M PRN PO DECREASED GLUCOSE; Start 03/17/19 at 08:00 Glucose (Glutose) 22.5 gm Q15M PRN PO DECREASED GLUCOSE; Start 03/17/19 at 08:00 Dextrose (D50w Syringe) 25 ml Q15M PRN IV DECREASED GLUCOSE; Start 03/17/19 at 08:00 Dextrose (D50w Syringe) 50 ml Q15M PRN IV DECREASED GLUCOSE; Start 03/17/19 at 08:00 Glucagon (Glucagen) 1 mg Q15M PRN IM DECREASED GLUCOSE; Start 03/17/19 at 08:00 Glucose (Glutose) 15 gm Q15M PRN BUCCAL DECREASED GLUCOSE; Start 03/17/19 at 08:00 Fluticasone Propionate (Flonase 0.05% Nasal) 2 spray DAILY NASAL ; Start 03/17/19 at 10:00 Rishi Bertrand DO Mar 17, 2019 15:35
[2019-03-17 18:31] VITALS: Ht 315 cm; Wt 57.0 kg
[2019-03-17 19:28] VITALS: BP 117/56; PULSE 60; RESP 20
[2019-03-17] MEDS: ATORVASTATIN 10 MG TAB PO SCH (20:32)
[2019-03-18] VITALS: BP 128/60; PULSE 62; RESP 19
[2019-03-18] MEDS: SOD CHLORIDE 0.9% 1,000 ML IV SCH ×2 (03:32→14:40)
[2019-03-18 04:00] VITALS: BP 141/62; PULSE 57; RESP 18
[2019-03-18] MEDS: LEVOFLOXACIN 250 MG TAB PO SCH (05:08)
[2019-03-18] MEDS: PANTOPRAZOLE (EC) 40 MG TAB PO SCH ×2 (05:08→08:15)
[2019-03-18 07:22] VITALS: BP 124/56; PULSE 57; RESP 20
[2019-03-18] MEDS: INSULIN ASPART [NOVOLOG] 3 ML PEN SC SCH ×4 (07:55→20:38)
[2019-03-18] MEDS: LORATADINE 10 MG TAB PO SCH (08:14)
[2019-03-18] MEDS: PREGABALIN 75 MG CAP PO SCH ×2 (08:14→20:29)
[2019-03-18] MEDS: FLUTICASONE 0.05% 16 GM NAS SPRAY NASAL SCH (08:14)
[2019-03-18] MEDS: AMLODIPINE 2.5 MG TAB PO SCH ×2 (08:15→20:30)
[2019-03-18] MEDS: DULOXETINE 30 MG CAP DR PO SCH ×2 (08:15→20:29)
[2019-03-18] MEDS: LINAGLIPTIN 5 MG TABLET PO SCH (08:16)
[2019-03-18] MEDS: HEPARIN 5,000 UNIT/1 ML VIAL SC SCH ×2 (08:28→20:38)
[2019-03-18] MEDS ORDERED: MAGNESIUM SULFATE 4 GM/100 ML 100 ML IVPB ONE (11:00)
[2019-03-18 12:12] VITALS: BP 121/60; PULSE 64; RESP 18
[2019-03-18 15:42] VITALS: BP 115/55; PULSE 61; RESP 17
--- NOTE | 2019-03-18 18:26 | CONS ---
Assessment/Plan Assessment/Plan Hospital Course (Demo Recall) Digoxin toxicity Acute kidney injury, improving Borderline blood pressure, improved Preserved ejection fraction History of atrial tachycardia Diabetes Patient presented with acute kidney injury, hyperkalemia and elevated digoxin level Renal function has improved Telemetry reviewed with brief episode of idioventricular rhythm, creatinine improving and digoxin level, will continue to monitor on telemetry Continue IV fluids as tolerated Magnesium supplementation has already been ordered Consultation Date/Type/Reason Admit Date/Time Mar 16, 2019 at 19:44 Initial Consult Date Type of Consult Cardiology Date/Time of Note DATE: 03/18/19 TIME: 18:24 24 HR Interval Summary Free Text/Dictation Feeling much better. Denies nausea, dizziness, chest pain or shortness of breath Exam/Review of Systems Vital Signs Vitals Vital Signs Date Temp Pulse Resp B/P (MAP) Pulse Ox O2 O2 Flow FiO2 Time Delivery Rate 03/18/19 97.4 61 17 115/55 98 Room Air 15:42 (75) Intake and Output 03/17/19 03/17/19 03/18/19 1515:00 23:00 07:00 IntakeIntake Total 2150 ml 1100 ml BalanceBalance 2150 ml 1100 ml Exam Constitutional: alert, oriented, frail (No apparent distress) Head: normocephalic Respiratory: other (Coarse breath sounds bilaterally, no wheezing) Cardiovascular: regular rate and rhythm, other (S1-S2 heard) Gastrointestinal: soft, non-tender, bowel sounds Extremities: other (No significant edema) Labs Result Diagram: 03/18/19 0556 03/18/19 0556 Results 24hrs Laboratory Tests Test 03/17/19 20:39 03/18/19 05:56 03/18/19 08:16 03/18/19 11:32 Bedside Glucose 134 84 136 White Blood Count 6.6 Red Blood Count 3.70 L Hemoglobin 10.5 L Hematocrit 32.6 L Mean Corpuscular Volume 88.1 Mean Corpuscular 28.4 L Hemoglobin Mean Corpuscular 32.2 Hemoglobin Concent Red Cell Distribution 14.3 Width Platelet Count 286 Mean Platelet Volume 10.2 Immature Granulocytes % 0.300 Neutrophils % 63.8 Lymphocytes % 22.2 Monocytes % 9.4 Eosinophils % 2.9 Basophils % 1.4 Nucleated Red Blood 0.0 Cells % Immature Granulocytes # 0.020 Neutrophils # 4.2 Lymphocytes # 1.5 Monocytes # 0.6 Eosinophils # 0.2 Basophils # 0.1 Nucleated Red Blood 0.0 Cells # Sodium Level 145 H Potassium Level 4.9 Chloride Level 113 H Carbon Dioxide Level 25 Anion Gap 7 Blood Urea Nitrogen 26 #H Creatinine 1.15 H Est Glomerular Filtrat Rate mL/min Glucose Level 99 Calcium Level 9.5 Magnesium Level 1.5 L Digoxin Level 2.1 H Test 03/18/19 16:54 Bedside Glucose 140 Medications Medications Current Medications Atorvastatin Calcium (Lipitor) 10 mg QHS PO Last administered on 03/17/19 20:32; Admin Dose 10 MG; Start 03/17/19 at 21:00 Carisoprodol (Soma) 350 mg HS PRN PO MUSCLE SPASMS; Start 03/16/19 at 22:30 Duloxetine HCl (Cymbalta) 60 mg BID PO Last administered on 03/18/19 08:15; Admin Dose 60 MG; Start 03/17/19 at 09:00 Loratadine (Claritin) 10 mg DAILY PO Last administered on 03/18/19 08:14; Admin Dose 10 MG; Start 03/17/19 at 09:00 Losartan Potassium (Cozaar) 100 mg DAILY PO Last administered on 03/17/19 08:34; Admin Dose 100 MG; Start 03/17/19 at 09:00; Status Hold Pantoprazole (Protonix Tab) 40 mg AC BREAKFAST PO Last administered on 03/18/19 08:15; Admin Dose 40 MG; Start 03/17/19 at 07:00 Pregabalin (Lyrica) 150 mg BID PO Last administered on 03/18/19 08:14; Admin Dose 150 MG; Start 03/17/19 at 09:00 Linagliptin (Tradjenta) 5 mg DAILY PO Last administered on 03/18/19 08:16; Admin Dose 5 MG; Start 03/17/19 at 09:00 Sodium Chloride 1,000 ml @ 100 mls/hr Q10H IV Last administered on 03/18/19 14:40; Admin Dose 100 MLS/HR; Start 03/16/19 at 22:18 IV Flush (NS 3 ml) 3 ml PER PROTOCOL IV ; Start 03/16/19 at 22:30 Ondansetron HCl (Zofran Inj) 4 mg Q6H PRN IV NAUSEA/VOMITING; Start 03/16/19 at 22:30 Nitroglycerin (Nitroglycerin (Sl Tab) 0.4 Mg) 1 tab Q5M PRN SL .CHEST PAIN; Start 03/16/19 at 22:30 Acetaminophen (Tylenol Tab) 650 mg Q6H PRN PO .PAIN 1-3 OR TEMP; Start 03/16/19 at 22:30 Acetaminophen/ Hydrocodone Bitart ([place] (5/325)) 1 tab Q6H PRN PO .PAIN 4-6; Start 03/16/19 at 22:30 Acetaminophen/ Hydrocodone Bitart ([place] (5/325)) 2 tab Q6H PRN PO .PAIN 7-10; Start 03/16/19 at 22:30 Docusate Sodium (Colace) 100 mg Q12H PRN PO .CONSTIPATION; Start 03/16/19 at 22:30 Magnesium Hydroxide (Milk Of Mag) 30 ml DAILY PRN PO .CONSTIPATION; Start 03/16/19 at 22:30 Bisacodyl (Dulcolax Supp) 10 mg DAILY PRN [place] .CONSTIPATION; Start 03/16/19 at 22:30 Heparin Sodium (Porcine) (Heparin (5000 Units/1ml)) 5,000 unit Q12 SC Last administered on 03/18/19at 08:28; Admin Dose 5,000 UNIT; Start 03/17/19 at 09:00 Levofloxacin (Levaquin) 250 mg DAILY@06 PO Last administered on 03/18/19at 05:08; Admin Dose 250 MG; Start 03/18/19 at 06:00; Stop 03/24/19 at 05:59 Insulin Aspart (Novolog Insulin Pen) NOVOLOG *MILD* ALGORITHM WITH MEALS BEDTIME SC Last administered on 03/17/19at 18:01; Admin Dose 1 UNIT; Start 03/17/19 at 08:00 Amlodipine Besylate (Norvasc) 2.5 mg BID PO Last administered on 03/18/19at 08:15; Admin Dose 2.5 MG; Start 03/17/19 at 09:00 Miscellaneous Information 1 ea NOTE XX ; Start 03/17/19 at 08:00 Glucose (Glutose) 15 gm Q15M PRN PO DECREASED GLUCOSE; Start 03/17/19 at 08:00 Glucose (Glutose) 22.5 gm Q15M PRN PO DECREASED GLUCOSE; Start 03/17/19 at 08:00 Dextrose (D50w Syringe) 25 ml Q15M PRN IV DECREASED GLUCOSE; Start 03/17/19 at 08:00 Dextrose (D50w Syringe) 50 ml Q15M PRN IV DECREASED GLUCOSE; Start 03/17/19 at 08:00 Glucagon (Glucagen) 1 mg Q15M PRN IM DECREASED GLUCOSE; Start 03/17/19 at 08:00 Glucose (Glutose) 15 gm Q15M PRN BUCCAL DECREASED GLUCOSE; Start 03/17/19 at 08:00 Fluticasone Propionate (Flonase 0.05% Nasal) 2 spray DAILY NASAL Last administered on 03/18/19at 08:14; Admin Dose 2 SPRAY; Start 03/17/19 at 10:00 Rishi Bertrand DO Mar 18, 2019 18:26
[2019-03-18 20:13] VITALS: BP 112/56; PULSE 61; RESP 18
[2019-03-18] MEDS: ATORVASTATIN 10 MG TAB PO SCH (20:30)
--- NOTE | 2019-03-18 22:48 | PN ---
Date/Time of Note Date/Time of Note DATE: 03/18/19 TIME: 22:40 Assessment/Plan VTE Prophylaxis Risk score (from Ns)>0 risk: 4 [place] [facility] [place] Pharmacological prophylaxis: heparin Lines/Catheters IV Catheter Type (from [facility]): Peripheral IV Assessment/Plan Problems: (1) Digoxin toxicity Status: Acute Comment: Level normalizing w/ just hydration. Recheck tomorrow. Pt. improving clinically. Qualifiers: Encounter type: initial encounter Injury intent: accidental or unintentional Qualified Codes: T46.0X1A - Poisoning by cardiac-stimulant glycosides and drugs of similar action, accidental (unintentional), initial encounter (2) Hypomagnesemia Status: Acute Comment: Replace Mg again. Recheck tomorrow. (3) Acute renal insufficiency Status: Acute Comment: Improving. Cont. hydration. (4) Dehydration, moderate Status: Resolved (5) Generalized weakness Status: Acute Comment: Cont. PT who states pt. does well w/ her walker but is unsteady w/o it. Likely will need HHPT. (6) Frequent falls Status: Acute Comment: At risk for more b/c pt. not using her walker at home. 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 Cont. linagliptin. (8) Hypertension Status: Chronic Comment: Controlled. Cont. amlodipine. Pt. has not needed beta-[place] (9) Lumbar stenosis with neurogenic claudication Status: Chronic Comment: cont. lyrica (10) Hyperlipidemia Status: Chronic Comment: cont. statin (11) Major depressive disorder, recurrent, in full remission Status: Chronic Comment: cont. duloxetine (12) Allergic rhinitis Status: Chronic Comment: Cont. fluticasone and loratadine (13) Left maxillary sinusitis Status: Acute Comment: Cont. levofloxacin and fluticasone along w/ loratadine Result Diagram: 03/18/19 0556 03/18/19 0556 Results 24hrs Laboratory Tests Test 03/18/19 05:56 03/18/19 08:16 03/18/19 11:32 03/18/19 16:54 White Blood Count 6.6 Red Blood Count 3.70 L Hemoglobin 10.5 L Hematocrit 32.6 L Mean Corpuscular Volume 88.1 Mean Corpuscular 28.4 L Hemoglobin Mean Corpuscular 32.2 Hemoglobin Concent Red Cell Distribution 14.3 Width Platelet Count 286 Mean Platelet Volume 10.2 Immature Granulocytes % 0.300 Neutrophils % 63.8 Lymphocytes % 22.2 Monocytes % 9.4 Eosinophils % 2.9 Basophils % 1.4 Nucleated Red Blood 0.0 Cells % Immature Granulocytes # 0.020 Neutrophils # 4.2 Lymphocytes # 1.5 Monocytes # 0.6 Eosinophils # 0.2 Basophils # 0.1 Nucleated Red Blood 0.0 Cells # Sodium Level 145 H Potassium Level 4.9 Chloride Level 113 H Carbon Dioxide Level 25 Anion Gap 7 Blood Urea Nitrogen 26 #H Creatinine 1.15 H Est Glomerular Filtrat Rate mL/min Glucose Level 99 Calcium Level 9.5 Magnesium Level 1.5 L Digoxin Level 2.1 H Bedside Glucose 84 136 140 Test 03/18/19 20:34 Bedside Glucose 110 Subjective 24 Hr Interval Summary Constitutional: no complaints, improved (unable to delineate how she feels better but reports she does feel better. Ambulates w/ PT. ) Respiratory: no complaints Cardiovascular: no complaints Gastrointestinal: no complaints Genitourinary: no complaints Musculoskeletal: no complaints Neurologic: no complaints Exam/Review of Systems Exam Vitals VS - Last 72 Hours, by Label Date Temp Pulse Resp B/P (MAP) Pulse Ox O2 O2 Flow FiO2 Time Delivery Rate 03/18/19 97.8 61 18 112/56 97 20:13 (74) 03/18/19 97.4 61 17 115/55 98 Room Air 15:42 (75) 03/18/19 97.5 64 18 121/60 98 Room Air 12:12 (80) 03/18/19 96.1 57 20 124/56 96 Room Air 07:22 (78) 03/18/19 97.6 57 18 141/62 95 04:00 (88) 03/18/19 97.9 62 19 128/60 97 00:00 (82) 03/17/19 98.9 60 20 117/56 95 19:28 (76) 03/17/19 97.9 57 13 133/57 98 Room Air 17:17 (82) 03/17/19 97.9 61 17 130/65 97 Room Air 15:21 (86) 03/17/19 61 18 150/66 96 Room Air 14:14 (94) 03/17/19 56 17 113/91 95 Room Air 12:26 (98) 03/17/19 62 16 150/61 97 Room Air 12:00 (90) 03/17/19 56 16 120/57 96 Room Air 10:00 (78) 03/17/19 59 16 149/58 98 Room Air 08:35 (88) 03/17/19 98.1 58 16 161/68 97 Room Air 06:30 (99) 03/17/19 78 16 155/64 97 Room Air 04:38 (94) 03/17/19 60 16 164/64 98 Room Air 03:46 (97) 03/17/19 60 22 164/67 95 Room Air 00:00 (99) 03/16/19 63 20 153/61 99 Room Air 22:00 (91) 03/16/19 67 17 147/65 98 Room Air 21:00 (92) 03/16/19 97.9 67 16 164/77 99 Room Air 20:46 (106) 03/16/19 97.9 65 16 160/70 99 17:06 (100) Vital Signs Date Temp Pulse Resp B/P (MAP) Pulse Ox O2 O2 Flow FiO2 Time Delivery Rate 03/18/19 97.8 61 18 112/56 97 20:13 (74) 03/18/19 Room Air 15:42 Intake and Output 03/17/19 03/17/19 03/18/19 1515:00 23:00 07:00 IntakeIntake Total 2150 ml 1100 ml BalanceBalance 2150 ml 1100 ml Constitutional: alert, oriented, well developed Psych: no complaints, nl mood/affect Respiratory: clear to auscultation, normal air movement Cardiovascular: regular rate and rhythm, nl pulses; No edema, No murmurs/extra sounds, No rub Gastrointestinal: soft, nl liver, spleen, non-tender, bowel sounds; No mass, No rebound or guarding Musculoskeletal: nl extremities to inspection Extremities: normal pulses; No cyanosis, No clubbing, No edema Neurological: BACK CLOSER II-XII intact, nl mental status, nl speech, nl strength Additional Comments Bedside Glucose - 72 Hours Test 03/17/19 08:29 03/17/19 13:25 03/17/19 17:52 03/17/19 20:39 Bedside 85 120 172 134 Glucose mg/dL (70-220) mg/dL (70-220) mg/dL (70-220) mg/dL (70-220) Test 03/18/19 08:16 03/18/19 11:32 03/18/19 16:54 03/18/19 20:34 Bedside 84 136 140 110 Glucose mg/dL (70-220) mg/dL (70-220) mg/dL (70-220) mg/dL (70-220) Results Results 24hrs Laboratory Tests Test 03/18/19 05:56 03/18/19 08:16 03/18/19 11:32 03/18/19 16:54 White Blood Count 6.6 Red Blood Count 3.70 L Hemoglobin 10.5 L Hematocrit 32.6 L Mean Corpuscular Volume 88.1 Mean Corpuscular 28.4 L Hemoglobin Mean Corpuscular 32.2 Hemoglobin Concent Red Cell Distribution 14.3 Width Platelet Count 286 Mean Platelet Volume 10.2 Immature Granulocytes % 0.300 Neutrophils % 63.8 Lymphocytes % 22.2 Monocytes % 9.4 Eosinophils % 2.9 Basophils % 1.4 Nucleated Red Blood 0.0 Cells % Immature Granulocytes # 0.020 Neutrophils # 4.2 Lymphocytes # 1.5 Monocytes # 0.6 Eosinophils # 0.2 Basophils # 0.1 Nucleated Red Blood 0.0 Cells # Sodium Level 145 H Potassium Level 4.9 Chloride Level 113 H Carbon Dioxide Level 25 Anion Gap 7 Blood Urea Nitrogen 26 #H Creatinine 1.15 H Est Glomerular Filtrat Rate mL/min Glucose Level 99 Calcium Level 9.5 Magnesium Level 1.5 L Digoxin Level 2.1 H Bedside Glucose 84 136 140 Test 03/18/19 20:34 Bedside Glucose 110 Medications Medication Current Medications Atorvastatin Calcium (Lipitor) 10 mg QHS PO Last administered on 03/18/19at 20:30; Admin Dose 10 MG; Start 03/17/19 at 21:00 Carisoprodol (Soma) 350 mg HS PRN PO MUSCLE SPASMS; Start 03/16/19 at 22:30 Duloxetine HCl (Cymbalta) 60 mg BID PO Last administered on 03/18/19at 20:29; Admin Dose 60 MG; Start 03/17/19 at 09:00 Loratadine (Claritin) 10 mg DAILY PO Last administered on 03/18/19at 08:14; Admin Dose 10 MG; Start 03/17/19 at 09:00 Losartan Potassium (Cozaar) 100 mg DAILY PO Last administered on 03/17/19at 08:34; Admin Dose 100 MG; Start 03/17/19 at 09:00; Status Hold Pantoprazole (Protonix Tab) 40 mg AC BREAKFAST PO Last administered on 03/18/19at 08:15; Admin Dose 40 MG; Start 03/17/19 at 07:00 Pregabalin (Lyrica) 150 mg BID PO Last administered on 03/18/19 20:29; Admin Dose 150 MG; Start 03/17/19 at 09:00 Linagliptin (Tradjenta) 5 mg DAILY PO Last administered on 03/18/19 08:16; Admin Dose 5 MG; Start 03/17/19 at 09:00 Sodium Chloride 1,000 ml @ 100 mls/hr Q10H IV Last administered on 03/18/19 14:40; Admin Dose 100 MLS/HR; Start 03/16/19 at 22:18 IV Flush (NS 3 ml) 3 ml PER PROTOCOL IV ; Start 03/16/19 at 22:30 Ondansetron HCl (Zofran Inj) 4 mg Q6H PRN IV NAUSEA/VOMITING; Start 03/16/19 at 22:30 Nitroglycerin (Nitroglycerin (Sl Tab) 0.4 Mg) 1 tab Q5M PRN SL .CHEST PAIN; Start 03/16/19 at 22:30 Acetaminophen (Tylenol Tab) 650 mg Q6H PRN PO .PAIN 1-3 OR TEMP; Start 03/16/19 at 22:30 Acetaminophen/ Hydrocodone Bitart ([place] (5/325)) 1 tab Q6H PRN PO .PAIN 4-6; Start 03/16/19 at 22:30 Acetaminophen/ Hydrocodone Bitart ([place] (5/325)) 2 tab Q6H PRN PO .PAIN 7-10; Start 03/16/19 at 22:30 Docusate Sodium (Colace) 100 mg Q12H PRN PO .CONSTIPATION; Start 03/16/19 at 22:30 Magnesium Hydroxide (Milk Of Mag) 30 ml DAILY PRN PO .CONSTIPATION; Start 03/16/19 at 22:30 Bisacodyl (Dulcolax Supp) 10 mg DAILY PRN [place] .CONSTIPATION; Start 03/16/19 at 22:30 Heparin Sodium (Porcine) (Heparin (5000 Units/1ml)) 5,000 unit Q12 SC Last administered on 03/18/19at 20:38; Admin Dose 5,000 UNIT; Start 03/17/19 at 09:00 Levofloxacin (Levaquin) 250 mg DAILY@06 PO Last administered on 03/18/19 05:08; Admin Dose 250 MG; Start 03/18/19 at 06:00; Stop 03/24/19 at 05:59 Insulin Aspart (Novolog Insulin Pen) NOVOLOG *MILD* ALGORITHM WITH MEALS BEDTIME SC Last administered on 03/17/19at 18:01; Admin Dose 1 UNIT; Start 03/17/19 at 08:00 Amlodipine Besylate (Norvasc) 2.5 mg BID PO Last administered on 03/18/19at 20:30; Admin Dose 2.5 MG; Start 03/17/19 at 09:00 Miscellaneous Information 1 ea NOTE XX ; Start 03/17/19 at 08:00 Glucose (Glutose) 15 gm Q15M PRN PO DECREASED GLUCOSE; Start 03/17/19 at 08:00 Glucose (Glutose) 22.5 gm Q15M PRN PO DECREASED GLUCOSE; Start 03/17/19 at 08:00 Dextrose (D50w Syringe) 25 ml Q15M PRN IV DECREASED GLUCOSE; Start 03/17/19 at 08:00 Dextrose (D50w Syringe) 50 ml Q15M PRN IV DECREASED GLUCOSE; Start 03/17/19 at 08:00 Glucagon (Glucagen) 1 mg Q15M PRN IM DECREASED GLUCOSE; Start 03/17/19 at 08:00 Glucose (Glutose) 15 gm Q15M PRN BUCCAL DECREASED GLUCOSE; Start 03/17/19 at 08:00 Fluticasone Propionate (Flonase 0.05% Nasal) 2 spray DAILY NASAL Last adm inistered on 03/18/19at 08:14; Admin Dose 2 SPRAY; Start 03/17/19 at 10:00 PASCUAL CORNELIUS MD Mar 18, 2019 22:48
[2019-03-19] VITALS: BP 137/63; PULSE 54; RESP 18
[2019-03-19] MEDS: SOD CHLORIDE 0.9% 1,000 ML IV SCH ×3 (00:54→14:51)
[2019-03-19 04:36] VITALS: BP 151/72; PULSE 67; RESP 18
[2019-03-19] MEDS: LEVOFLOXACIN 250 MG TAB PO SCH (05:17)
[2019-03-19] MEDS: INSULIN ASPART [NOVOLOG] 3 ML PEN SC SCH ×4 (07:55→20:59)
[2019-03-19 08:08] VITALS: BP 167/72; PULSE 73; RESP 18
[2019-03-19] MEDS: LINAGLIPTIN 5 MG TABLET PO SCH (08:36)
[2019-03-19] MEDS: LORATADINE 10 MG TAB PO SCH (08:36)
[2019-03-19] MEDS: AMLODIPINE 2.5 MG TAB PO SCH ×2 (08:37→20:45)
[2019-03-19] MEDS: PREGABALIN 75 MG CAP PO SCH ×2 (08:37→20:45)
[2019-03-19] MEDS: HEPARIN 5,000 UNIT/1 ML VIAL SC SCH ×2 (08:43→20:58)
[2019-03-19] MEDS: FLUTICASONE 0.05% 16 GM NAS SPRAY NASAL SCH (08:44)
[2019-03-19] MEDS: DULOXETINE 30 MG CAP DR PO SCH ×2 (10:33→20:45)
[2019-03-19 12:33] VITALS: BP 140/66; PULSE 70; RESP 18
--- NOTE | 2019-03-19 14:43 | PN ---
Date/Time of Note Date/Time of Note DATE: 03/19/19 TIME: 14:36 Assessment/Plan VTE Prophylaxis Risk score (from Ns)>0 risk: 4 SCD applied (from Ns): Yes Pharmacological prophylaxis: heparin Lines/Catheters IV C[facility]ter Type (from [facility]): Peripheral IV Assessment/Plan Problems: (1) Digoxin toxicity Status: Resolved Comment: Now back to therapeutic range. Likely too risky to resume. Will defer to cardiology. Qualifiers: Encounter type: initial encounter Injury intent: accidental or unintentional Qualified Codes: T46.0X1A - Poisoning by cardiac-stimulant glycosides and drugs of similar action, accidental (unintentional), initial encounter (2) Generalized weakness Status: Resolved Comment: With normalization of digoxin this has resolved (3) Acute renal insufficiency Status: Resolved Comment: Back to baseline. Encourage po hydration (4) Frequent falls Status: Acute Comment: Bedside commode at home and HHPT both recommended by in-house PT. Recommend pt. use walker when in her home (5) Diabetes mellitus type 2 with complications Status: Chronic Comment: Good control. Cont. linagliptin (6) Hypertension Status: Chronic Comment: Mildly elevated. Now that off digoxin, may need beta-blockade to control BP. Defer to cardiology (7) Lumbar stenosis with neurogenic claudication Status: Chronic Comment: Cont. lyrica (8) Hyperlipidemia Status: Chronic Comment: Cont. statin (9) Major depressive disorder, recurrent, in full remission Status: Chronic Comment: Cont. duloxetine (10) Allergic rhinitis Status: Chronic Comment: Cont. loratadine (11) Hypomagnesemia Status: Resolved (12) Left maxillary sinusitis Status: Acute Comment: Cont. levofloxacin 250 mg x 10 days (13) Urge incontinence Status: Chronic Comment: Motivating factor for dehydration leading to pre-renal azotemia. Will add oxybutynin 5 mg daily Cont Hosp Indication/DC Plan: Once cleared by cardiology, pt. is stable for d/c home w/ home health Result Diagram: 03/19/1909 03/19/19 0609 Results 24hrs Laboratory Tests Test 03/18/19 16:54 03/18/19 20:34 03/19/19 06:09 03/19/19 07:50 Bedside Glucose 140 110 93 White Blood Count 6.6 Red Blood Count 3.50 L Hemoglobin 10.0 L Hematocrit 31.1 L Mean Corpuscular Volume 88.9 Mean Corpuscular 28.6 L Hemoglobin Mean Corpuscular 32.2 Hemoglobin Concent Red Cell Distribution 14.6 H Width Platelet Count 285 Mean Platelet Volume 10.3 Immature Granulocytes % 0.300 Neutrophils % 64.2 Lymphocytes % 22.3 Monocytes % 8.7 Eosinophils % 3.0 Basophils % 1.5 Nucleated Red Blood 0.0 Cells % Immature Granulocytes # 0.020 Neutrophils # 4.3 Lymphocytes # 1.5 Monocytes # 0.6 Eosinophils # 0.2 Basophils # 0.1 Nucleated Red Blood 0.0 Cells # Sodium Level 143 Potassium Level 4.8 Chloride Level 113 H Carbon Dioxide Level 25 Anion Gap 5 Blood Urea Nitrogen 23 H Creatinine 1.27 H Est Glomerular Filtrat Rate mL/min Glucose Level 102 Calcium Level 9.4 Magnesium Level 1.7 Digoxin Level 1.3 Test 03/19/19 11:47 Bedside Glucose 119 Subjective 24 Hr Interval Summary Constitutional: no complaints, improved (feels much better over all. Head more clear. Weakness resolved. Continues to work w/ PT) Respiratory: no complaints Cardiovascular: no complaints Gastrointestinal: no complaints Genitourinary: other (incontinence; drinks very little to avoid having to go to the bathroom) Musculoskeletal: no complaints Neurologic: no complaints Exam/Review of Systems Exam Vitals VS - Last 72 Hours, by Label Date Temp Pulse Resp B/P (MAP) Pulse Ox O2 O2 Flow FiO2 Time Delivery Rate 03/19/19 98.0 70 18 140/66 98 12:33 (90) 03/19/19 98.0 73 18 167/72 98 08:08 (103) 03/19/19 97.7 67 18 151/72 94 04:36 (98) 03/19/19 98.3 54 18 137/63 95 00:00 (87) 03/18/19 97.8 61 18 112/56 97 20:13 (74) 03/18/19 97.4 61 17 115/55 98 Room Air 15:42 (75) 03/18/19 97.5 64 18 121/60 98 Room Air 12:12 (80) 03/18/19 96.1 57 20 124/56 96 Room Air 07:22 (78) 03/18/19 97.6 57 18 141/62 95 04:00 (88) 03/18/19 97.9 62 19 128/60 97 00:00 (82) 03/17/19 98.9 60 20 117/56 95 19:28 (76) 03/17/19 97.9 57 13 133/57 98 Room Air 17:17 (82) 03/17/19 97.9 61 17 130/65 97 Room Air 15:21 (86) 03/17/19 61 18 150/66 96 Room Air 14:14 (94) 03/17/19 56 17 113/91 95 Room Air 12:26 (98) 03/17/19 62 16 150/61 97 Room Air 12:00 (90) 03/17/19 56 16 120/57 96 Room Air 10:00 (78) 03/17/19 59 16 149/58 98 Room Air 08:35 (88) 03/17/19 98.1 58 16 161/68 97 Room Air 06:30 (99) 03/17/19 78 16 155/64 97 Room Air 04:38 (94) 03/17/19 60 16 164/64 98 Room Air 03:46 (97) 03/17/19 60 22 164/67 95 Room Air 00:00 (99) 03/16/19 63 20 153/61 99 Room Air 22:00 (91) 03/16/19 67 17 147/65 98 Room Air 21:00 (92) 03/16/19 97.9 67 16 164/77 99 Room Air 20:46 (106) 03/16/19 97.9 65 16 160/70 99 17:06 (100) Vital Signs Date Temp Pulse Resp B/P (MAP) Pulse Ox O2 O2 Flow FiO2 Time Delivery Rate 03/19/19 98.0 70 18 140/66 98 12:33 (90) 03/18/19 Room Air 15:42 Intake and Output 03/18/19 03/18/19 03/19/19 1515:00 23:00 07:00 IntakeIntake Total 1000 ml 900 ml 480 ml BalanceBalance 1000 ml 900 ml 480 ml Constitutional: alert, oriented, well developed Respiratory: clear to auscultation, normal air movement Cardiovascular: regular rate and rhythm, nl pulses; No edema, No murmurs/extra sounds, No rub Gastrointestinal: soft, nl liver, spleen, non-tender, bowel sounds; No mass, No rebound or guarding Musculoskeletal: nl extremities to inspection Extremities: normal pulses; No cyanosis, No clubbing, No edema Neurological: ASSOCIATE TEAM PHYSICIAN II-XII intact, nl mental status, nl speech, nl strength Additional Comments Bedside Glucose - 72 Hours Test 03/17/19 08:29 03/17/19 13:25 03/17/19 17:52 03/17/19 20:39 Bedside 85 120 172 134 Glucose mg/dL (70-220) mg/dL (70-220) mg/dL (70-220) mg/dL (70-220) Test 03/18/19 08:16 03/18/19 11:32 03/18/19 16:54 03/18/19 20:34 Bedside 84 136 140 110 Glucose mg/dL (70-220) mg/dL (70-220) mg/dL (70-220) mg/dL (70-220) Test 03/19/19 07:50 03/19/19 11:47 Bedside 93 119 Glucose mg/dL (70-220) mg/dL (70-220) Results Results 24hrs Laboratory Tests Test 03/18/19 16:54 03/18/19 20:34 03/19/19 06:09 03/19/19 07:50 Bedside Glucose 140 110 93 White Blood Count 6.6 Red Blood Count 3.50 L Hemoglobin 10.0 L Hematocrit 31.1 L Mean Corpuscular Volume 88.9 Mean Corpuscular 28.6 L Hemoglobin Mean Corpuscular 32.2 Hemoglobin Concent Red Cell Distribution 14.6 H Width Platelet Count 285 Mean Platelet Volume 10.3 Immature Granulocytes % 0.300 Neutrophils % 64.2 Lymphocytes % 22.3 Monocytes % 8.7 Eosinophils % 3.0 Basophils % 1.5 Nucleated Red Blood 0.0 Cells % Immature Granulocytes # 0.020 Neutrophils # 4.3 Lymphocytes # 1.5 Monocytes # 0.6 Eosinophils # 0.2 Basophils # 0.1 Nucleated Red Blood 0.0 Cells # Sodium Level 143 Potassium Level 4.8 Chloride Level 113 H Carbon Dioxide Level 25 Anion Gap 5 Blood Urea Nitrogen 23 H Creatinine 1.27 H Est Glomerular Filtrat Rate mL/min Glucose Level 102 Calcium Level 9.4 Magnesium Level 1.7 Digoxin Level 1.3 Test 03/19/19 11:47 Bedside Glucose 119 Medications Medication Current Medications Atorvastatin Calcium (Lipitor) 10 mg QHS PO Last administered on 03/18/19 20:30; Admin Dose 10 MG; Start 03/17/19 at 21:00 Carisoprodol (Soma) 350 mg HS PRN PO MUSCLE SPASMS; Start 03/16/19 at 22:30 Duloxetine HCl (Cymbalta) 60 mg BID PO Last administered on 03/19/19 10:33; Admin Dose 60 MG; Start 03/17/19 at 09:00 Loratadine (Claritin) 10 mg DAILY PO Last administered on 03/19/19 08:36; Admin Dose 10 MG; Start 03/17/19 at 09:00 Losartan Potassium (Cozaar) 100 mg DAILY PO Last administered on 03/17/19 08 :34; Admin Dose 100 MG; Start 03/17/19 at 09:00; Status Hold Pantoprazole (Protonix Tab) 40 mg AC BREAKFAST PO Last administered on 03/18/19 08:15; Admin Dose 40 MG; Start 03/17/19 at 07:00 Pregabalin (Lyrica) 150 mg BID PO Last administered on 03/19/19at 08:37; Admin Dose 150 MG; Start 03/17/19 at 09:00 Linagliptin (Tradjenta) 5 mg DAILY PO Last administered on 03/19/19 08:36; Admin Dose 5 MG; Start 03/17/19 at 09:00 Sodium Chloride 1,000 ml @ 100 mls/hr Q10H IV Last administered on 03/19/19at 0 0:54; Admin Dose 100 MLS/HR; Start 03/16/19 at 22:18 IV Flush (NS 3 ml) 3 ml PER PROTOCOL IV ; Start 03/16/19 at 22:30 Ondansetron HCl (Zofran Inj) 4 mg Q6H PRN IV NAUSEA/VOMITING; Start 03/16/19 at 22:30 Nitroglycerin (Nitroglycerin (Sl Tab) 0.4 Mg) 1 tab Q5M PRN SL .CHEST PAIN; Start 03/16/19 at 22:30 Acetaminophen (Tylenol Tab) 650 mg Q6H PRN PO .PAIN 1-3 OR TEMP; Start 03/16/19 at 22:30 Acetaminophen/ Hydrocodone Bitart ([place] (5/325)) 1 tab Q6H PRN PO .PAIN 4-6; Start 03/16/19 at 22:30 Acetaminophen/ Hydrocodone Bitart ([place] (5/325)) 2 tab Q6H PRN PO .PAIN 7-10; Start 03/16/19 at 22:30 Docusate Sodium (Colace) 100 mg Q12H PRN PO .CONSTIPATION; Start 03/16/19 at 22:30 Magnesium Hydroxide (Milk Of Mag) 30 ml DAILY PRN PO .CONSTIPATION; Start 03/16/19 at 22:30 Bisacodyl (Dulcolax Supp) 10 mg DAILY PRN [place] .CONSTIPATION; Start 03/16/19 at 22:30 Heparin Sodium (Porcine) (Heparin (5000 Units/1ml)) 5,000 unit Q12 SC Last administered on 03/19/19at 08:43; Admin Dose 5,000 UNIT; Start 03/17/19 at 09:00 Levofloxacin (Levaquin) 250 mg DAILY@06 PO Last administered on 03/19/19at 05:17; Admin Dose 250 MG; Start 03/18/19 at 06:00; Stop 03/24/19 at 05:59 Insulin Aspart (Novolog Insulin Pen) NOVOLOG *MILD* ALGORITHM WITH MEALS BEDTIME SC Last administered on 03/17/19at 18:01; Admin Dose 1 UNIT; Start 03/17/19 at 08:00 Amlodipine Besylate (Norvasc) 2.5 mg BID PO Last administered on 03/19/19at 08 :37; Admin Dose 2.5 MG; Start 03/17/19 at 09:00 Miscellaneous Information 1 ea NOTE XX ; Start 03/17/19 at 08:00 Glucose (Glutose) 15 gm Q15M PRN PO DECREASED GLUCOSE; Start 03/17/19 at 08:00 Glucose (Glutose) 22.5 gm Q15M PRN PO DECREASED GLUCOSE; Start 03/17/19 at 08:00 Dextrose (D50w Syringe) 25 ml Q15M PRN IV DECREASED GLUCOSE; Start 03/17/19 at 08:00 Dextrose (D50w Syringe) 50 ml Q15M PRN IV DECREASED GLUCOSE; Start 03/17/19 at 08:00 Glucagon (Glucagen) 1 mg Q15M PRN IM DECREASED GLUCOSE; Start 03/17/19 at 08:00 Glucose (Glutose) 15 gm Q15M PRN BUCCAL DECREASED GLUCOSE; Start 03/17/19 at 08 :00 Fluticasone Propionate (Flonase 0.05% Nasal) 2 spray DAILY NASAL Last administered on 03/19/19at 08:44; Admin Dose 2 SPRAY; Start 03/17/19 at 10:00 PASCUAL CORNELIUS MD Mar 19, 2019 14:43
[2019-03-19] MEDS: OXYBUTYNIN (XL) 5 MG TAB PO SCH (15:10)
[2019-03-19 16:09] VITALS: BP 133/62; PULSE 70; RESP 18
[2019-03-19] MEDS ORDERED: MAGNESIUM SULFATE 2 GM/50 ML 50 ML IVPB ONE (19:00)
--- NOTE | 2019-03-19 19:01 | CONS ---
Assessment/Plan Assessment/Plan Hospital Course (Demo Recall) Digoxin toxicity Acute kidney injury, improving Borderline blood pressure, improved Preserved ejection fraction History of atrial tachycardia Diabetes Patient presented with acute kidney injury, hyperkalemia and elevated digoxin level Renal function has improved No further arrhythmias seen on telemetry Magnesium supplementation has already been ordered Would not restart digoxin, would start Toprol-XL 25 mg p.o. daily and titrate as needed DC planning Consultation Date/Type/Reason Admit Date/Time Mar 16, 2019 at 19:44 Initial Consult Date Type of Consult Cardiology Date/Time of Note DATE: 03/19/19 TIME: 19:00 24 HR Interval Summary Free Text/Dictation Denies dizziness, shortness of breath, palpitations Exam/Review of Systems Vital Signs Vitals Vital Signs Date Temp Pulse Resp B/P (MAP) Pulse Ox O2 O2 Flow FiO2 Time Delivery Rate 03/19/19 98.0 70 18 133/62 98 16:09 (85) 03/18/19 Room Air 15:42 Intake and Output 03/18/19 03/18/19 03/19/19 1515:00 23:00 07:00 IntakeIntake Total 1000 ml 900 ml 480 ml BalanceBalance 1000 ml 900 ml 480 ml Exam Constitutional: alert, oriented (No apparent distress) Head: normocephalic Respiratory: other (Coarse breath sounds bilaterally, no wheezing) Cardiovascular: regular rate and rhythm (S1-S2 heard) Gastrointestinal: soft, non-tender, bowel sounds Extremities: other (No significant edema) Labs Result Diagram: 03/19/19 0609 03/19/19 0609 Results 24hrs Laboratory Tests Test 03/18/19 20:34 03/19/19 06:09 03/19/19 07:50 03/19/19 11:47 Bedside Glucose 110 93 119 White Blood Count 6.6 Red Blood Count 3.50 L Hemoglobin 10.0 L Hematocrit 31.1 L Mean Corpuscular Volume 88.9 Mean Corpuscular 28.6 L Hemoglobin Mean Corpuscular 32.2 Hemoglobin Concent Red Cell Distribution 14.6 H Width Platelet Count 285 Mean Platelet Volume 10.3 Immature Granulocytes % 0.300 Neutrophils % 64.2 Lymphocytes % 22.3 Monocytes % 8.7 Eosinophils % 3.0 Basophils % 1.5 Nucleated Red Blood 0.0 Cells % Immature Granulocytes # 0.020 Neutrophils # 4.3 Lymphocytes # 1.5 Monocytes # 0.6 Eosinophils # 0.2 Basophils # 0.1 Nucleated Red Blood 0.0 Cells # Sodium Level 143 Potassium Level 4.8 Chloride Level 113 H Carbon Dioxide Level 25 Anion Gap 5 Blood Urea Nitrogen 23 H Creatinine 1.27 H Est Glomerular Filtrat Rate mL/min Glucose Level 102 Calcium Level 9.4 Magnesium Level 1.7 Digoxin Level 1.3 Medications Medications Current Medications Atorvastatin Calcium (Lipitor) 10 mg QHS PO Last administered on 03/18/19 20:30; Admin Dose 10 MG; Start 03/17/19 at 21:00 Carisoprodol (Soma) 350 mg HS PRN PO MUSCLE SPASMS; Start 03/16/19 at 22:30 Duloxetine HCl (Cymbalta) 60 mg BID PO Last administered on 03/19/19 10:33; Admin Dose 60 MG; Start 03/17/19 at 09:00 Loratadine (Claritin) 10 mg DAILY PO Last administered on 03/19/19 08:36; Admin Dose 10 MG; Start 03/17/19 at 09:00 Losartan Potassium (Cozaar) 100 mg DAILY PO Last administered on 03/17/19 08:34; Admin Dose 100 MG; Start 03/17/19 at 09:00; Status Hold Pantoprazole (Protonix Tab) 40 mg AC BREAKFAST PO Last administered on 03/18/19 08:15; Admin Dose 40 MG; Start 03/17/19 at 07:00 Pregabalin (Lyrica) 150 mg BID PO Last administered on 03/19/19 08:37; Admin Dose 150 MG; Start 03/17/19 at 09:00 Linagliptin (Tradjenta) 5 mg DAILY PO Last administered on 03/19/19 08:36; Admin Dose 5 MG; Start 03/17/19 at 09:00 Sodium Chloride 1,000 ml @ 100 mls/hr Q10H IV Last administered on 03/19/19 14:51; Admin Dose 100 MLS/HR; Start 03/16/19 at 22:18 IV Flush (NS 3 ml) 3 ml PER PROTOCOL IV ; Start 03/16/19 at 22:30 Ondansetron HCl (Zofran Inj) 4 mg Q6H PRN IV NAUSEA/VOMITING; Start 03/16/19 at 22:30 Nitroglycerin (Nitroglycerin (Sl Tab) 0.4 Mg) 1 tab Q5M PRN SL .CHEST PAIN; Start 03/16/19 at 22:30 Acetaminophen (Tylenol Tab) 650 mg Q6H PRN PO .PAIN 1-3 OR TEMP; Start 03/16/19 at 22:30 Acetaminophen/ Hydrocodone Bitart ([place] (5/325)) 1 tab Q6H PRN PO .PAIN 4-6; Start 03/16/19 at 22:30 Acetaminophen/ Hydrocodone Bitart ([place] (5/325)) 2 tab Q6H PRN PO .PAIN 7-10; Start 03/16/19 at 22:30 Docusate Sodium (Colace) 100 mg Q12H PRN PO .CONSTIPATION; Start 03/16/19 at 22:30 Magnesium Hydroxide (Milk Of Mag) 30 ml DAILY PRN PO .CONSTIPATION; Start 03/16/19 at 22:30 Bisacodyl (Dulcolax Supp) 10 mg DAILY PRN [place] .CONSTIPATION; Start 03/16/19 at 22:30 Heparin Sodium (Porcine) (Heparin (5000 Units/1ml)) 5,000 unit Q12 SC Last administered on 03/19/19at 08:43; Admin Dose 5,000 UNIT; Start 03/17/19 at 09:00 Levofloxacin (Levaquin) 250 mg DAILY@06 PO Last administered on 03/19/19at 05:17; Admin Dose 250 MG; Start 03/18/19 at 06:00; Stop 03/24/19 at 05:59 Insulin Aspart (Novolog Insulin Pen) NOVOLOG *MILD* ALGORITHM WITH MEALS BEDTIME SC Last administered on 03/17/19at 18:01; Admin Dose 1 UNIT; Start 03/17/19 at 08:00 Amlodipine Besylate (Norvasc) 2.5 mg BID PO Last administered on 03/19/19at 08:37; Admin Dose 2.5 MG; Start 03/17/19 at 09:00 Miscellaneous Information 1 ea NOTE XX ; Start 03/17/19 at 08:00 Glucose (Glutose) 15 gm Q15M PRN PO DECREASED GLUCOSE; Start 03/17/19 at 08:00 Glucose (Glutose) 22.5 gm Q15M PRN PO DECREASED GLUCOSE; Start 03/17/19 at 08:00 Dextrose (D50w Syringe) 25 ml Q15M PRN IV DECREASED GLUCOSE; Start 03/17/19 at 08:00 Dextrose (D50w Syringe) 50 ml Q15M PRN IV DECREASED GLUCOSE; Start 03/17/19 at 08:00 Glucagon (Glucagen) 1 mg Q15M PRN IM DECREASED GLUCOSE; Start 03/17/19 at 08:00 Glucose (Glutose) 15 gm Q15M PRN BUCCAL DECREASED GLUCOSE; Start 03/17/19 at 08:00 Fluticasone Propionate (Flonase 0.05% Nasal) 2 spray DAILY NASAL Last administered on 03/19/19at 08:44; Admin Dose 2 SPRAY; Start 03/17/19 at 10:00 Oxybutynin Chloride (Ditropan Xl) 5 mg DAILY PO Last administered on 03/19/19at 15:10; Admin Dose 5 MG; Start 03/19/19 at 15:00 Magnesium Sulfate 50 ml @ 25 mls/hr ONCE ONCE IVPB Last administered on 03/19/19at 18:47; Admin Dose 25 MLS/HR; Start 03/19/19 at 19:00; Stop 03/19/19 at 20:59 Rishi Bertrand DO Mar 19, 2019 19:01
--- NOTE | 2019-03-19 19:16 | RADRPT ---
Echocardiogram Report Patient Name: AMANDA RIOSPatient ID: [id number] : 1930 (88y 6m)Study Date: 03/18/2019 7:07:26 AM Gender: FAccession #: [id number] Tech: Gaurav Najera MICHEAL Location: [id number] Ref.Physician: RISHI BERTRAND Height(Cm): BSA: Weight(Kg): Quality: Technically Difficult StudyOrder Physician: RISHI BERTRAND Account #: Procedures: Echocardiographic Report: Transthoracic echocardiogram with complete 2D, M-Mode, and doppler examination. Indications: Hypertension, and Tachycardia. Measurements: 2D/M Mode Doppler Measurement Value Normal Range Measurement Value Normal Range LVIDd 2D 3.6 [ 3.8 - 5.2 ] cm AV Peak Juan 1.7 [ 100.0 - 170.0 ] cm/sec LVIDs 2D 2.0 [ 2.2 - 3.5 ] cm AV Peak PG 12.0 [ 2.0 - 9.0 ] mmHg LVPWd 2D 1.1 [ 0.6 - 0.9 ] cm LVOT Peak Juan 1.1 [ 70.0 - 110.0 ] cm/sec IVSd 2D 1.0 [ 0.6 - 0.9 ] cm LVOT Peak PG 5.0 [ 2.0 - 6.0 ] mmHg AoR Diam 2D 3.0 [ 2.3 - 3.1 ] cm MV E Peak Juan 1.0 [ 60.0 - 130.0 ] cm/sec EDV 2D 55.2 [ 46.0 - 106.0 ] ml MV A Peak Juan 1.4 [ 100.0 - 120.0 ] cm/sec ESV 2D 12.1 [ 14.0 - 42.0 ] ml MV E/A 0.7 [ 0.8 - 1.5 ] ratio EF 2D 78.1 [ 54.0 - 74.0 ] percent MV Peak PG 11.9 [ 1.0 - 10.0 ] mmHg LA Dimen 2D 3.5 [ 2.7 - 3.8 ] cm MV Mean Juan 91.5 cm/sec MV Mean PG 3.8 mmHg MV Decel Time 468 [ 104 - 258 ] msec Lat E` Juan 172.2 [ 10.0 - 15.0 ] cm/sec Lateral E/E` 13.5 [ 1.0 - 2.0 ] ratio MV E/A 0.7 [ 0.8 - 1.5 ] ratio MV VTI 64.4 cm TR Peak Juan 2.0 [ 100.0 - 280.0 ] cm/sec TR Peak PG 17.0 mmHg RVSP 20.0 [ 10.0 - 36.0 ] mmHg RA Pressure 3.0 mmHg Findings: Left Ventricle: Normal left ventricular systolic function. Normal left ventricular cavity size. Mild concentric left ventricular hypertrophy. Ejection fraction is visually estimated at 65 %. Tissue Doppler/Mitral Doppler indices are consistent with impaired relaxation (Stage I diastolic dysfunction). Right Ventricle: Normal right ventricular size. Normal right ventricular systolic function. Left Atrium: The left atrium is normal in size. Right Atrium: The right atrium is normal in size. Mitral Valve: Mitral valve leaflets appear moderately thickened. Moderate mitral annular calcification. Trace mitral regurgitation. Mild mitral stenosis. Aortic Valve: No significant aortic stenosis or insufficiency. Aortic cusps appear mildly calcified. Tricuspid Valve: Normal appearance of the tricuspid valve. There is mild tricuspid regurgitation. Pulmonic Valve: Normal pulmonic valve appearance. Pericardium: Normal pericardium with no significant pericardial effusion. Aorta: Normal aortic root. IVC: Normal size and normal respiratory collapse consistent with normal right atrial pressure. Conclusions: Normal left ventricular systolic function. Normal left ventricular cavity size. Mild concentric left ventricular hypertrophy. Ejection fraction is visually estimated at 65 %. Tissue Doppler/Mitral Doppler indices are consistent with impaired relaxation (Stage I diastolic dysfunction). Normal right ventricular size. Normal right ventricular systolic function. The left atrium is normal in size. The right atrium is normal in size. Trace mitral regurgitation. Mild mitral stenosis. No significant aortic stenosis or insufficiency. There is mild tricuspid regurgitation. Normal pericardium with no significant pericardial effusion. Electronically Signed By: Rishi Bertrand 2019-03-19 19:15:28 PDT
[2019-03-19 20:07] VITALS: BP 128/60; PULSE 80; RESP 20
[2019-03-19] MEDS: ATORVASTATIN 10 MG TAB PO SCH (20:45)
[2019-03-19] MEDS: METOPROLOL (XL) 25 MG TAB PO SCH (20:46)
[2019-03-20 00:44] VITALS: BP 124/70; PULSE 68; RESP 18
[2019-03-20 04:21] VITALS: BP 153/69; PULSE 63; RESP 18
[2019-03-20] MEDS: LEVOFLOXACIN 250 MG TAB PO SCH (05:08)
[2019-03-20 07:33] VITALS: BP 133/66; PULSE 66; RESP 22
[2019-03-20] MEDS: INSULIN ASPART [NOVOLOG] 3 ML PEN SC SCH ×4 (07:55→21:00)
[2019-03-20] MEDS: LORATADINE 10 MG TAB PO SCH (08:14)
[2019-03-20] MEDS: LINAGLIPTIN 5 MG TABLET PO SCH (08:14)
[2019-03-20] MEDS: AMLODIPINE 2.5 MG TAB PO SCH ×2 (08:14→21:32)
[2019-03-20] MEDS: PANTOPRAZOLE (EC) 40 MG TAB PO SCH (08:14)
[2019-03-20] MEDS: DULOXETINE 30 MG CAP DR PO SCH ×2 (08:14→21:31)
[2019-03-20] MEDS: FLUTICASONE 0.05% 16 GM NAS SPRAY NASAL SCH (08:15)
[2019-03-20] MEDS: PREGABALIN 75 MG CAP PO SCH ×2 (08:15→21:31)
[2019-03-20] MEDS: METOPROLOL (XL) 25 MG TAB PO SCH (08:15)
[2019-03-20] MEDS: HEPARIN 5,000 UNIT/1 ML VIAL SC SCH ×2 (08:38→21:41)
[2019-03-20] MEDS: OXYBUTYNIN (XL) 5 MG TAB PO SCH (09:19)
[2019-03-20 11:37] VITALS: BP 145/65; PULSE 75; RESP 22
--- NOTE | 2019-03-20 12:58 | CONS ---
Assessment/Plan Assessment/Plan Hospital Course (Demo Recall) Digoxin toxicity-resolved Acute kidney injury, improving Preserved ejection fraction History of atrial tachycardia Diabetes Patient presented with acute kidney injury, hyperkalemia and elevated digoxin level Renal function has improved No further arrhythmias seen on telemetry Would not restart digoxin, Toprol-XL 25 mg p.o. daily was started on 03/19/2019 Would restart losartan at lower dose DC planning Consultation Date/Type/Reason Admit Date/Time Mar 16, 2019 at 19:44 Initial Consult Date Type of Consult Cardiology Date/Time of Note DATE: 03/20/19 TIME: 12:57 24 HR Interval Summary Free Text/Dictation No chest pain, shortness of breath or palpitations. Mild dizziness with therapy today Exam/Review of Systems Vital Signs Vitals Vital Signs Date Temp Pulse Resp B/P (MAP) Pulse Ox O2 O2 Flow FiO2 Time Delivery Rate 03/20/19 97.6 75 22 145/65 96 Room Air 11:37 (91) Intake and Output 03/19/19 03/19/19 03/20/19 1515:00 23:00 07:00 IntakeIntake Total 1100 ml BalanceBalance 1100 ml Exam Constitutional: alert, oriented (No apparent distress) Head: normocephalic Respiratory: other (Coarse breath sounds bilaterally, no wheezing) Cardiovascular: regular rate and rhythm (S1-S2 heard) Gastrointestinal: soft, non-tender, bowel sounds Extremities: other (No significant edema) Labs Result Diagram: 03/19/19 0609 03/19/19 0609 Results 24hrs Laboratory Tests Test 03/19/19 20:43 03/20/19 08:13 03/20/19 12:39 Bedside Glucose 152 77 93 Medications Medications Current Medications Atorvastatin Calcium (Lipitor) 10 mg QHS PO Last administered on 03/19/19at 20:45; Admin Dose 10 MG; Start 03/17/19 at 21:00 Carisoprodol (Soma) 350 mg HS PRN PO MUSCLE SPASMS; Start 03/16/19 at 22:30 Duloxetine HCl (Cymbalta) 60 mg BID PO Last administered on 03/20/19at 08:14; Admin Dose 60 MG; Start 03/17/19 at 09:00 Loratadine (Claritin) 10 mg DAILY PO Last administered on 03/20/19at 08:14; Admin Dose 10 MG; Start 03/17/19 at 09:00 Losartan Potassium (Cozaar) 100 mg DAILY PO Last administered on 03/17/19at 0 8:34; Admin Dose 100 MG; Start 03/17/19 at 09:00; Status Hold Pantoprazole (Protonix Tab) 40 mg AC BREAKFAST PO Last administered on 03/20/19at 08:14; Admin Dose 40 MG; Start 03/17/19 at 07:00 Pregabalin (Lyrica) 150 mg BID PO Last administered on 03/20/19at 08:15; Admin Dose 150 MG; Start 03/17/19 at 09:00 Linagliptin (Tradjenta) 5 mg DAILY PO Last administered on 03/20/19at 08:14; Admin Dose 5 MG; Start 03/17/19 at 09:00 IV Flush (NS 3 ml) 3 ml PER PROTOCOL IV ; Start 03/16/19 at 22:30 Ondansetron HCl (Zofran Inj) 4 mg Q6H PRN IV NAUSEA/VOMITING; Start 03/16/19 at 22:30 Nitroglycerin (Nitroglycerin (Sl Tab) 0.4 Mg) 1 tab Q5M PRN SL .CHEST PAIN; Start 03/16/19 at 22:30 Acetaminophen (Tylenol Tab) 650 mg Q6H PRN PO .PAIN 1-3 OR TEMP; Start 03/16/19 at 22:30 Acetaminophen/ Hydrocodone Bitart ([place] (5/325)) 1 tab Q6H PRN PO .PAIN 4-6; Start 03/16/19 at 22:30 Acetaminophen/ Hydrocodone Bitart ([place] (5/325)) 2 tab Q6H PRN PO .PAIN 7-10; Start 03/16/19 at 22:30 Docusate Sodium (Colace) 100 mg Q12H PRN PO .CONSTIPATION; Start 03/16/19 at 22:30 Magnesium Hydroxide (Milk Of Mag) 30 ml DAILY PRN PO .CONSTIPATION; Start 03/16/19 at 22:30 Bisacodyl (Dulcolax Supp) 10 mg DAILY PRN [place] .CONSTIPATION; Start 03/16/19 at 22:30 Heparin Sodium (Porcine) (Heparin (5000 Units/1ml)) 5,000 unit Q12 SC Last administered on 03/20/19at 08:38; Admin Dose 5,000 UNIT; Start 03/17/19 at 09:00 Levofloxacin (Levaquin) 250 mg DAILY@06 PO Last administered on 03/20/19at 05:08; Admin Dose 250 MG; Start 03/18/19 at 06:00; Stop 03/24/19 at 05:59 Insulin Aspart (Novolog Insulin Pen) NOVOLOG *MILD* ALGORITHM WITH MEALS BEDTIME SC Last administered on 03/19/19at 20:59; Admin Dose 1 UNIT; Start 03/17/19 at 08:00 Amlodipine Besylate (Norvasc) 2.5 mg BID PO Last administered on 03/20/19at 08:14; Admin Dose 2.5 MG; Start 03/17/19 at 09:00 Miscellaneous Information 1 ea NOTE XX ; Start 03/17/19 at 08:00 Glucose (Glutose) 15 gm Q15M PRN PO DECREASED GLUCOSE; Start 03/17/19 at 08:00 Glucose (Glutose) 22.5 gm Q15M PRN PO DECREASED GLUCOSE; Start 03/17/19 at 08:00 Dextrose (D50w Syringe) 25 ml Q15M PRN IV DECREASED GLUCOSE; Start 03/17/19 at 08:00 Dextrose (D50w Syringe) 50 ml Q15M PRN IV DECREASED GLUCOSE; Start 03/17/19 at 08:00 Glucagon (Glucagen) 1 mg Q15M PRN IM DECREASED GLUCOSE; Start 03/17/19 at 08:00 Glucose (Glutose) 15 gm Q15M PRN BUCCAL DECREASED GLUCOSE; Start 03/17/19 at 08:00 Fluticasone Propionate (Flonase 0.05% Nasal) 2 spray DAILY NASAL Last administered on 03/20/19at 08:15; Admin Dose 2 SPRAY; Start 03/17/19 at 10:00 Oxybutynin Chloride (Ditropan Xl) 5 mg DAILY PO Last administered on 03/20/19at 09:19; Admin Dose 5 MG; Start 03/19/19 at 15:00 Metoprolol Succinate (Toprol Xl) 25 mg DAILY PO Last administered on 03/20/19at 08:15; Admin Dose 25 MG; Start 03/19/19 at 19:30 Rishi Bertrand DO Mar 20, 2019 12:58
[2019-03-20] MEDS: LOSARTAN 50 MG TAB PO SCH (13:13)
--- NOTE | 2019-03-20 15:16 | PN ---
Date/Time of Note Date/Time of Note DATE: 03/20/19 TIME: 15:12 Assessment/Plan VTE Prophylaxis Risk score (from Nsg)>0 risk: 4 SCD applied (from Nsg): Yes Pharmacological prophylaxis: heparin Lines/Catheters IV Catheter Type (from Nrsg): Peripheral IV Assessment/Plan Problems: (1) Visual hallucinations Status: Acute Comment: This starting after resolving digoxin toxicity. Will r/o acute infectious etiology. Check US, CBC, BMP. Psych consult. Quetiapine 25 mg qhs. Defer to psych. 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 Cont. linagliptin (3) Hypertension Status: Chronic Comment: Good BP control. Cont. current regimen (4) Hyperlipidemia Status: Chronic Comment: Cont. statin (5) Lumbar stenosis with neurogenic claudication Status: Chronic Comment: Cont. Lyrica (6) Major depressive disorder, recurrent, in full remission Status: Chronic Comment: Cont. duloxetine (7) Urge incontinence Status: Chronic Comment: Cont. oxybutynin (8) Left maxillary sinusitis Status: Acute Comment: Cont. levofloxacin. Result Diagram: 03/19/19 0609 03/19/19 0609 Results 24hrs Laboratory Tests Test 03/19/19 20:43 03/20/19 08:13 03/20/19 12:39 Bedside Glucose 152 77 93 Subjective 24 Hr Interval Summary Constitutional: disoriented Respiratory: no complaints Cardiovascular: no complaints Gastrointestinal: no complaints Genitourinary: no complaints Musculoskeletal: no complaints Neurologic: no complaints Psychological: other (hallucinating, sees people in the corner of the room that she is talking to) Exam/Review of Systems Exam Vitals VS - Last 72 Hours, by Label Date Temp Pulse Resp B/P (MAP) Pulse Ox O2 O2 Flow FiO2 Time Delivery Rate 03/20/19 97.6 75 22 145/65 96 Room Air 11:37 (91) 03/20/19 98.0 66 22 133/66 96 Room Air 07:33 (88) 03/20/19 98.1 63 18 153/69 97 04:21 (97) 03/20/19 98.7 68 18 124/70 98 00:44 (88) 03/19/19 98.6 80 20 128/60 95 20:07 (82) 03/19/19 98.0 70 18 133/62 98 16:09 (85) 03/19/19 98.0 70 18 140/66 98 12:33 (90) 03/19/19 98.0 73 18 167/72 98 08:08 (103) 03/19/19 97.7 67 18 151/72 94 04:36 (98) 03/19/19 98.3 54 18 137/63 95 00:00 (87) 03/18/19 97.8 61 18 112/56 97 20:13 (74) 03/18/19 97.4 61 17 115/55 98 Room Air 15:42 (75) 03/18/19 97.5 64 18 121/60 98 Room Air 12:12 (80) 03/18/19 96.1 57 20 124/56 96 Room Air 07:22 (78) 03/18/19 97.6 57 18 141/62 95 04:00 (88) 03/18/19 97.9 62 19 128/60 97 00:00 (82) 03/17/19 98.9 60 20 117/56 95 19:28 (76) 03/17/19 97.9 57 13 133/57 98 Room Air 17:17 (82) 03/17/19 97.9 61 17 130/65 97 Room Air 15:21 (86) Vital Signs Date Temp Pulse Resp B/P (MAP) Pulse Ox O2 O2 Flow FiO2 Time Delivery Rate 03/20/19 97.6 75 22 145/65 96 Room Air 11:37 (91) Intake and Output 03/19/19 03/19/19 03/20/19 1515:00 23:00 07:00 IntakeIntake Total 1100 ml BalanceBalance 1100 ml Constitutional: alert, well developed; No oriented Psych: other (actively hallucinating) Respiratory: clear to auscultation, normal air movement Cardiovascular: regular rate and rhythm, nl pulses; No edema, No murmurs/extra sounds, No rub Gastrointestinal: soft, nl liver, spleen, non-tender, bowel sounds; No mass, No rebound or guarding Musculoskeletal: nl extremities to inspection Extremities: normal pulses; No cyanosis, No clubbing, No edema Neurological: MACHINE CELL TUBER II-XII intact, nl speech, nl strength, confused; No nl mental status Additional Comments Bedside Glucose - 72 Hours Test 03/17/19 17:52 03/17/19 20:39 03/18/19 08:16 03/18/19 11:32 Bedside 172 134 84 136 Glucose mg/dL (70-220) mg/dL (70-220) mg/dL (70-220) mg/dL (70-220) Test 03/18/19 16:54 03/18/19 20:34 03/19/19 07:50 03/19/19 11:47 Bedside 140 110 93 119 Glucose mg/dL (70-220) mg/dL (70-220) mg/dL (70-220) mg/dL (70-220) Test 03/19/19 20:43 03/20/19 08:13 03/20/19 12:39 Bedside 152 77 93 Glucose mg/dL (70-220) mg/dL (70-220) mg/dL (70-220) Results Results 24hrs Laboratory Tests Test 03/19/19 20:43 03/20/19 08:13 03/20/19 12:39 Bedside Glucose 152 77 93 Medications Medication Current Medications Atorvastatin Calcium (Lipitor) 10 mg QHS PO Last administered on 03/19/19at 20:45; Admin Dose 10 MG; Start 03/17/19 at 21:00 Carisoprodol (Soma) 350 mg HS PRN PO MUSCLE SPASMS; Start 03/16/19 at 22:30 Duloxetine HCl (Cymbalta) 60 mg BID PO Last administered on 03/20/19 08:14; Admin Dose 60 MG; Start 03/17/19 at 09:00 Loratadine (Claritin) 10 mg DAILY PO Last administered on 03/20/19 08:14; A dmin Dose 10 MG; Start 03/17/19 at 09:00 Pantoprazole (Protonix Tab) 40 mg AC BREAKFAST PO Last administered on 03/20/19 08:14; Admin Dose 40 MG; Start 03/17/19 at 07:00 Pregabalin (Lyrica) 150 mg BID PO Last administered on 03/20/19 08:15; Admin Dose 150 MG; Start 03/17/19 at 09:00 Linagliptin (Tradjenta) 5 mg DAILY PO Last administered on 03/20/19 08:14; Admin Dose 5 MG; Start 03/17/19 at 09:00 IV Flush (NS 3 ml) 3 ml PER PROTOCOL IV ; Start 03/16/19 at 22:30 Ondansetron HCl (Zofran Inj) 4 mg Q6H PRN IV NAUSEA/VOMITING; Start 03/16/19 at 22:30 Nitroglycerin (Nitroglycerin (Sl Tab) 0.4 Mg) 1 tab Q5M PRN SL .CHEST PAIN; Start 03/16/19 at 22:30 Acetaminophen (Tylenol Tab) 650 mg Q6H PRN PO .PAIN 1-3 OR TEMP; Start 03/16/19 at 22:30 Acetaminophen/ Hydrocodone Bitart ([place] (5/325)) 1 tab Q6H PRN PO .PAIN 4-6; Start 03/16/19 at 22:30 Acetaminophen/ Hydrocodone Bitart ([place] (5/325)) 2 tab Q6H PRN PO .PAIN 7-10; Start 03/16/19 at 22:30 Docusate Sodium (Colace) 100 mg Q12H PRN PO .CONSTIPATION; Start 03/16/19 at 22:30 Magnesium Hydroxide (Milk Of Mag) 30 ml DAILY PRN PO .CONSTIPATION; Start 03/16/19 at 22:30 Bisacodyl (Dulcolax Supp) 10 mg DAILY PRN [place] .CONSTIPATION; Start 03/16/19 at 22:30 Heparin Sodium (Porcine) (Heparin (5000 Units/1ml)) 5,000 unit Q12 SC Last administered on 03/20/19at 08:38; Admin Dose 5,000 UNIT; Start 03/17/19 at 09:00 Levofloxacin (Levaquin) 250 mg DAILY@06 PO Last administered on 03/20/19at 05:08; Admin Dose 250 MG; Start 03/18/19 at 06:00; Stop 03/24/19 at 05:59 Insulin Aspart (Novolog Insulin Pen) NOVOLOG *MILD* ALGORITHM WITH MEALS BEDTIME SC Last administered on 03/19/19at 20:59; Admin Dose 1 UNIT; Start 03/17/19 at 08:00 Amlodipine Besylate (Norvasc) 2.5 mg BID PO Last administered on 03/20/19at 08:14; Admin Dose 2.5 MG; Start 03/17/19 at 09:00 Miscellaneous Information 1 ea NOTE XX ; Start 03/17/19 at 08:00 Glucose (Glutose) 15 gm Q15M PRN PO DECREASED GLUCOSE; Start 03/17/19 at 08:00 Glucose (Glutose) 22.5 gm Q15M PRN PO DECREASED GLUCOSE; Start 03/17/19 at 08:00 Dextrose (D50w Syringe) 25 ml Q15M PRN IV DECREASED GLUCOSE; Start 03/17/19 at 08:00 Dextrose (D50w Syringe) 50 ml Q15M PRN IV DECREASED GLUCOSE; Start 03/17/19 at 08:00 Glucagon (Glucagen) 1 mg Q15M PRN IM DECREASED GLUCOSE; Start 03/17/19 at 08:00 Glucose (Glutose) 15 gm Q15M PRN BUCCAL DECREASED GLUCOSE; Start 03/17/19 at 08:00 Fluticasone Propionate (Flonase 0.05% Nasal) 2 spray DAILY NASAL Last administered on 03/20/19at 08:15; Admin Dose 2 SPRAY; Start 03/17/19 at 10:00 Oxybutynin Chloride (Ditropan Xl) 5 mg DAILY PO Last administered on 03/20/19at 09:19; Admin Dose 5 MG; Start 03/19/19 at 15:00 Metoprolol Succinate (Toprol Xl) 25 mg DAILY PO Last administered on 03/20/19at 08:15; Admin Dose 25 MG; Start 03/19/19 at 19:30 Losartan Potassium (Cozaar) 50 mg DAILY PO Last administered on 03/20/19at 13:13; Admin Dose 50 MG; Start 03/20/19 at 13:00 Quetiapine Fumarate (Seroquel) 25 mg QHS PO ; Start 03/20/19 at 21:00; Status PASCUAL ROBERTSON MD Mar 20, 2019 15:16
[2019-03-20 15:37] VITALS: BP 147/67; PULSE 62; RESP 22
--- NOTE | 2019-03-20 15:59 | PSY ---
Date/Time of Note Date/Time of Note DATE: 03/20/19 TIME: 15:53 Psychiatric Subjective Eval Consent Pt consented to telemedicine: No Subjective Evaluation Patient location: inpatient Chief Complaint: increased conf p mech fall today, hit back of head. no droop/ equal strengt Reason for consult: VISUAL HALLUCINATION History of present illness Patient is 88-year-old female with past medical history of DM, HTN, hyperlipidemia, allergic rhinitis, PUD, atrial tachycardia, acute renal failure, anemia, leg ulcer, and cellulitis. [id number] evaluation patient's is talking to herself, responding to internal stimuli, patient states fat I standing at the jaw and talking to her she got very anxious . Staff reports she has been increasingly anxious and also talking to herself. She would benefit from additional inpatient stay to rule out delirium. Mini-Mental status exam done and patient scored 20/30 Past psychiatric history Long history of depression Hospitalization: other Medical history Problems Medical Problems: (1) Acute kidney injury Status: Acute (2) Acute renal insufficiency Status: Resolved (3) Allergic rhinitis Status: Chronic (4) Anemia Status: Resolved (5) Bilateral leg weakness Status: Resolved (6) Bladder prolapse, female, acquired Status: Chronic (7) Cellulitis Status: Resolved (8) Dehydration Status: Acute (9) Dehydration, moderate Status: Resolved (10) Diabetes mellitus type 2 with complications Status: Chronic (11) Digoxin toxicity Status: Resolved (12) Duodenal ulcer disease Status: Resolved (13) Frequent falls Status: Acute (14) Generalized weakness Status: Resolved (15) Hematuria Status: Resolved (16) History of peptic ulcer disease Status: Resolved (17) Hypercalcemia Status: Resolved (18) Hyperkalemia Status: Acute (19) Hyperkalemia Onset: ~ 03/2019 Status: Resolved (20) Hyperlipidemia Status: Chronic (21) Hypertension Status: Chronic (22) Hypomagnesemia Status: Resolved (23) Left maxillary sinusitis Status: Acute (24) Lumbar stenosis with neurogenic claudication Status: Chronic (25) Major depressive disorder, recurrent, in full remission Status: Chronic (26) Personal history of other diseases of the circulatory system Status: Resolved (27) Personal history of urinary infection Status: Chronic (28) Scoliosis of thoracic spine Status: Chronic (29) Sepsis Status: Resolved (30) Type 2 diabetes mellitus with diabetic polyneuropathy Status: Chronic (31) Urge incontinence Status: Chronic (32) Urinary tract infection Status: Resolved (33) UTI (urinary tract infection) Status: Resolved (34) Vaginal prolapse Status: Chronic (35) Visual hallucinations Status: Acute Allergies: Coded Allergies: Penicillins (Unverified Allergy, Unknown, 10/17/17) Substance Abuse Substance abuse history: No Prior substance abuse treatmen: No Social History Marital status: other DPA/Conservatorship: No Psychiatric Objective Eval Review of Systems: Review of Systems: Not Applicable Physical Examination: Physical Examination: Not Applicable Appetite: Decreased Energy: Decreased Interest: Decreased Mental Status Examination: Appearance: Groomed Eye Contact: Fair Psychomotor Activity: Slow Behavior: Cooperative, Other (Anxious) Speech: Soft AFFECT: Anxious Mood: Anxious Though Process: Linear, Tangential Thought Content: Hallucinations Orientation: x2 Insight: Moderate Judgement: Moderate Attention Span: Distractible Laboratory Results Laboratory Tests Test 03/18/19 16:54 03/18/19 20:34 03/19/19 06:09 03/19/19 07:50 Bedside Glucose 140 mg/dL 110 mg/dL 93 mg/dL White Blood Count 6.6 10^3/ul Red Blood Count 3.50 10^6/ul Hemoglobin 10.0 g/dl Hematocrit 31.1 % Mean Corpuscular 88.9 fl Volume Mean Corpuscular 28.6 pg Hemoglobin Mean Corpuscular 32.2 g/dl Hemoglobin Concent Red Cell 14.6 % Distribution Width Platelet Count 285 10^3/UL Mean Platelet 10.3 fl Volume Immature 0.300 % Granulocytes % Neutrophils % 64.2 % Lymphocytes % 22.3 % Monocytes % 8.7 % Eosinophils % 3.0 % Basophils % 1.5 % Nucleated Red Blood 0.0 /100WBC Cells % Immature 0.020 10^3/ul Granulocytes # Neutrophils # 4.3 10^3/ul Lymphocytes # 1.5 10^3/ul Monocytes # 0.6 10^3/ul Eosinophils # 0.2 10^3/ul Basophils # 0.1 10^3/ul Nucleated Red Blood 0.0 10^3/ul Cells # Sodium Level 143 mmol/L Potassium Level 4.8 mmol/L Chloride Level 113 mmol/L Carbon Dioxide 25 mmol/L Level Anion Gap 5 Blood Urea Nitrogen 23 mg/dl Creatinine 1.27 mg/dl Est Glomerular mL/min Filtrat Rate mL/min Glucose Level 102 mg/dl Calcium Level 9.4 mg/dl Magnesium Level 1.7 mg/dl Digoxin Level 1.3 ng/ml Test 03/19/19 11:47 03/19/19 20:43 03/20/19 08:13 03/20/19 12:39 Bedside Glucose 119 mg/dL 152 mg/dL 77 mg/dL 93 mg/dL Test 03/20/19 15:06 White Blood Count 7.3 10^3/ul Red Blood Count 3.27 10^6/ul Hemoglobin 9.5 g/dl Hematocrit 29.0 % Mean Corpuscular 88.7 fl Volume Mean Corpuscular 29.1 pg Hemoglobin Mean Corpuscular 32.8 g/dl Hemoglobin Concent Red Cell 14.4 % Distribution Width Platelet Count 271 10^3/UL Mean Platelet 10.6 fl Volume Immature 0.500 % Granulocytes % Neutrophils % 64.4 % Lymphocytes % 17.7 % Monocytes % 12.7 % Eosinophils % 3.3 % Basophils % 1.4 % Nucleated Red Blood 0.0 /100WBC Cells % Immature 0.040 10^3/ul Granulocytes # Neutrophils # 4.7 10^3/ul Lymphocytes # 1.3 10^3/ul Monocytes # 0.9 10^3/ul Eosinophils # 0.2 10^3/ul Basophils # 0.1 10^3/ul Nucleated Red Blood 0.0 10^3/ul Cells # Sodium Level 142 mmol/L Potassium Level 4.7 mmol/L Chloride Level 107 mmol/L Carbon Dioxide 28 mmol/L Level Anion Gap 7 Blood Urea Nitrogen 22 mg/dl Creatinine 1.11 mg/dl Est Glomerular mL/min Filtrat Rate mL/min Glucose Level 96 mg/dl Calcium Level 9.5 mg/dl Assessment and Plan Assessment/Diagnosis Diagnosis 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 Multiple antipsychotics: No Psychotherapy Provide supportive therapy Discharge Disposition: Community Legal Status: Voluntary (Does not meet criteria for 5150 hold) NATALYA MAYNARD NP Mar 20, 2019 15:59
--- NOTE | 2019-03-20 16:35 | RADRPT ---
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
--- NOTE | 2019-03-20 16:36 | RADRPT ---
Vent Rate: 55 bpm RR Interval: 1088 msec [place] Interval: 216 msec QRS Duration: 80 msec QT Interval: 345 msec QTC Interval: 331 msec P-R-T [place]: 28 - 12 - 133 degrees Sinus rhythm...normal P axis, V-rate 50- 99 Borderline prolonged [place] interval...[place] >212, V-rate 50- 90 Posterior infarct, old...prom R T, V1-V3 or Q >40mS, V7-V9 Electronically Signed By: Curt France
[2019-03-20 19:13] VITALS: BP 143/64; PULSE 60; RESP 17
[2019-03-20] MEDS ORDERED: QUETIAPINE 25 MG TAB PO SCH (21:00)
[2019-03-20] MEDS: ATORVASTATIN 10 MG TAB PO SCH (21:31)
[2019-03-21 00:20] VITALS: BP 135/68; PULSE 59; RESP 17
[2019-03-21 04:07] VITALS: BP 141/64; PULSE 78; RESP 17
[2019-03-21] MEDS ORDERED: LORAZEPAM 2 MG INJ IV ONE (04:45)
[2019-03-21] MEDS: PANTOPRAZOLE (EC) 40 MG TAB PO SCH (06:28)
[2019-03-21] MEDS: LEVOFLOXACIN 250 MG TAB PO SCH (06:28)
[2019-03-21 07:09] VITALS: BP 135/74; PULSE 83; RESP 20
[2019-03-21] MEDS: INSULIN ASPART [NOVOLOG] 3 ML PEN SC SCH ×4 (07:55→20:45)
[2019-03-21] MEDS: OXYBUTYNIN (XL) 5 MG TAB PO SCH (08:17)
[2019-03-21] MEDS: LINAGLIPTIN 5 MG TABLET PO SCH (08:17)
[2019-03-21] MEDS: LOSARTAN 50 MG TAB PO SCH (08:18)
[2019-03-21] MEDS: DULOXETINE 30 MG CAP DR PO SCH ×2 (08:18→23:27)
[2019-03-21] MEDS: PREGABALIN 75 MG CAP PO SCH (08:18)
[2019-03-21] MEDS: LORATADINE 10 MG TAB PO SCH (08:18)
[2019-03-21] MEDS: METOPROLOL (XL) 25 MG TAB PO SCH (08:19)
[2019-03-21] MEDS: AMLODIPINE 2.5 MG TAB PO SCH (08:19)
[2019-03-21] MEDS: FLUTICASONE 0.05% 16 GM NAS SPRAY NASAL SCH (08:19)
[2019-03-21] MEDS: HEPARIN 5,000 UNIT/1 ML VIAL SC SCH (08:28)
[2019-03-21 11:13] VITALS: BP 135/73; PULSE 74; RESP 20
[2019-03-21 15:11] VITALS: BP 126/60; PULSE 80; RESP 20
--- NOTE | 2019-03-21 18:22 | CONS ---
Assessment/Plan Assessment/Plan Hospital Course (Demo Recall) Digoxin toxicity-resolved Acute kidney injury, improving Preserved ejection fraction History of atrial tachycardia Diabetes Patient presented with acute kidney injury, hyperkalemia and elevated digoxin level Renal function has improved Patient with atrial tachycardia overnight Would increase dose of Toprol Consultation Date/Type/Reason Admit Date/Time Mar 16, 2019 at 19:44 Initial Consult Date Type of Consult Cardiology Date/Time of Note DATE: 03/21/19 TIME: 18:20 24 HR Interval Summary Free Text/Dictation No shortness of breath, palpitations or chest pain Exam/Review of Systems Vital Signs Vitals Vital Signs Date Temp Pulse Resp B/P (MAP) Pulse Ox O2 O2 Flow FiO2 Time Delivery Rate 03/21/19 97.3 80 20 126/60 94 Room Air 15:11 (82) Intake and Output 03/20/19 03/20/19 03/21/19 1515:00 23:00 07:00 IntakeIntake Total 350 ml 600 ml 100 ml OutputOutput Total 300 ml 2 ml BalanceBalance 50 ml 598 ml 100 ml Exam Exam Sleeping but arousable, no apparent distress, following commands Head: normocephalic Respiratory: other (Coarse breath sounds bilaterally, no wheezing) Cardiovascular: regular rate and rhythm (S1-S2 heard) Gastrointestinal: soft, non-tender, bowel sounds Extremities: other (No significant edema) Labs Result Diagram: 03/20/19 1506 03/20/19 1506 Results 24hrs Laboratory Tests Test 03/20/19 21:30 03/21/19 07:11 03/21/19 08:17 03/21/19 11:56 Bedside Glucose 104 99 112 Urine Color STRAW Urine Clarity CLEAR Urine pH 6.0 Urine Specific 1.008 [place] Urine Ketones NEGATIVE Urine Nitrite NEGATIVE Urine Bilirubin NEGATIVE Urine Urobilinogen NEGATIVE Urine Leukocyte TRACE A Esterase Urine Microscopic 0 RBC Urine Microscopic 1 WBC Urine Squamous FEW Epithelial Cells Urine Bacteria FEW A Urine Hemoglobin NEGATIVE Urine Glucose NEGATIVE Urine Total Protein NEGATIVE Test 03/21/19 16:45 Bedside Glucose 110 Medications Medications Current Medications Atorvastatin Calcium (Lipitor) 10 mg QHS PO Last administered on 03/20/19at 21:31; Admin Dose 10 MG; Start 03/17/19 at 21:00 Carisoprodol (Soma) 350 mg HS PRN PO MUSCLE SPASMS; Start 03/16/19 at 22:30 Duloxetine HCl (Cymbalta) 60 mg BID PO Last administered on 03/21/19at 08:18; Admin Dose 60 MG; Start 03/17/19 at 09:00 Loratadine (Claritin) 10 mg DAILY PO Last administered on 03/21/19at 08:18; Admin Dose 10 MG; Start 03/17/19 at 09:00 Pantoprazole (Protonix Tab) 40 mg AC BREAKFAST PO Last administered on 03/21/19at 06:28; Admin Dose 40 MG; Start 03/17/19 at 07:00 Linagliptin (Tradjenta) 5 mg DAILY PO Last administered on 03/21/19 08:17; Admin Dose 5 MG; Start 03/17/19 at 09:00 IV Flush (NS 3 ml) 3 ml PER PROTOCOL IV ; Start 03/16/19 at 22:30 Ondansetron HCl (Zofran Inj) 4 mg Q6H PRN IV NAUSEA/VOMITING; Start 03/16/19 at 22:30 Nitroglycerin (Nitroglycerin (Sl Tab) 0.4 Mg) 1 tab Q5M PRN SL .CHEST PAIN; Start 03/16/19 at 22:30 Acetaminophen (Tylenol Tab) 650 mg Q6H PRN PO .PAIN 1-3 OR TEMP; Start 03/16/19 at 22:30 Acetaminophen/ Hydrocodone Bitart ([place] (5/325)) 1 tab Q6H PRN PO .PAIN 4-6; Start 03/16/19 at 22:30 Acetaminophen/ Hydrocodone Bitart ([place] (5/325)) 2 tab Q6H PRN PO .PAIN 7-10; Start 03/16/19 at 22:30 Docusate Sodium (Colace) 100 mg Q12H PRN PO .CONSTIPATION; Start 03/16/19 at 22:30 Magnesium Hydroxide (Milk Of Mag) 30 ml DAILY PRN PO .CONSTIPATION; Start 03/16/19 at 22:30 Bisacodyl (Dulcolax Supp) 10 mg DAILY PRN [place] .CONSTIPATION; Start 03/16/19 at 22:30 Heparin Sodium (Porcine) (Heparin (5000 Units/1ml)) 5,000 unit Q12 SC Last administered on 03/21/19at 08:28; Admin Dose 5,000 UNIT; Start 03/17/19 at 09:00 Levofloxacin (Levaquin) 250 mg DAILY@06 PO Last administered on 03/21/19at 06:28; Admin Dose 250 MG; Start 03/18/19 at 06:00; Stop 03/24/19 at 05:59 Insulin Aspart (Novolog Insulin Pen) NOVOLOG *MILD* ALGORITHM WITH MEALS BEDTIME SC Last administered on 03/19/19at 20:59; Admin Dose 1 UNIT; Start 03/17/19 at 08:00 Amlodipine Besylate (Norvasc) 2.5 mg BID PO Last administered on 03/21/19at 08:19; Admin Dose 2.5 MG; Start 03/17/19 at 09:00 Miscellaneous Information 1 ea NOTE XX ; Start 03/17/19 at 08:00 Glucose (Glutose) 15 gm Q15M PRN PO DECREASED GLUCOSE; Start 03/17/19 at 08:00 Glucose (Glutose) 22.5 gm Q15M PRN PO DECREASED GLUCOSE; Start 03/17/19 at 08:00 Dextrose (D50w Syringe) 25 ml Q15M PRN IV DECREASED GLUCOSE; Start 03/17/19 at 08:00 Dextrose (D50w Syringe) 50 ml Q15M PRN IV DECREASED GLUCOSE; Start 03/17/19 at 08:00 Glucagon (Glucagen) 1 mg Q15M PRN IM DECREASED GLUCOSE; Start 03/17/19 at 08:00 Glucose (Glutose) 15 gm Q15M PRN BUCCAL DECREASED GLUCOSE; Start 03/17/19 at 08:00 Fluticasone Propionate (Flonase 0.05% Nasal) 2 spray DAILY NASAL Last administered on 03/21/19at 08:19; Admin Dose 2 SPRAY; Start 03/17/19 at 10:00 Oxybutynin Chloride (Ditropan Xl) 5 mg DAILY PO Last administered on 03/21/19at 08:17; Admin Dose 5 MG; Start 03/19/19 at 15:00 Metoprolol Succinate (Toprol Xl) 25 mg DAILY PO Last administered on 03/21/19at 08:19; Admin Dose 25 MG; Start 03/19/19 at 19:30 Losartan Potassium (Cozaar) 50 mg DAILY PO Last administered on 03/21/19at 08:18; Admin Dose 50 MG; Start 03/20/19 at 13:00 Quetiapine Fumarate (Seroquel) 12.5 mg QHS PO ; Start 03/21/19 at 21:00 Pregabalin (Lyrica) 50 mg TID PO ; Start 03/21/19 at 21:00 Rishi Bertrand DO Mar 21, 2019 18:22
[2019-03-21] MEDS ORDERED: METOPROLOL (XL) 25 MG TAB PO ONE (18:30)
[2019-03-21 19:40] VITALS: BP 149/79; PULSE 80; RESP 17
--- NOTE | 2019-03-21 20:10 | PN ---
Date/Time of Note Date/Time of Note DATE: 03/21/19 TIME: 20:03 Assessment/Plan VTE Prophylaxis Risk score (from Ns)>0 risk: 4 SCD applied (from Ns): Yes Pharmacological prophylaxis: heparin Lines/Catheters IV Catheter Type (from Nrs): Saline Lock Assessment/Plan Problems: (1) Visual hallucinations Status: Acute Comment: Last night pt. became very agitated. Had to receive lorazepam x 1. Did receive quetiapine 25 mg last night. Sleeping all day since then. Pt.'s symptoms most c/w delirium not dementia. However, no evidence of sepsis. Delirium possibly caused by one of pt.'s meds. Most likely candidate is lyrica. Will decrease dosage to 50 mg tid. Decrease quetiapine to 12.5 mg nightly and reeval tomorrow. (2) Diabetes mellitus type 2 with complications Status: Chronic Comment: Euglycemic. Cont. current regimen. (3) Hypertension Status: Chronic Comment: BP in fair control. Cont. current regimen (4) Lumbar stenosis with neurogenic claudication Status: Chronic Comment: Possible that lyrica causing AMS. Will decrease dose of lyrica to 50 mg tid (cutting dose in half. (5) Hyperlipidemia Status: Chronic Comment: Cont. statin (6) Major depressive disorder, recurrent, in full remission Status: Chronic Comment: Cont. duloxetine 60 mg bid (7) Urge incontinence Status: Chronic Comment: Cont. oxybutynin daily (8) Left maxillary sinusitis Status: Acute Comment: Cont. levofloxacin 250 mg daily Result Diagram: 03/20/19 1506 03/20/19 1506 Results 24hrs Laboratory Tests Test 03/20/19 21:30 03/21/19 07:11 03/21/19 08:17 03/21/19 11:56 Bedside Glucose 104 99 112 Urine Color STRAW Urine Clarity CLEAR Urine pH 6.0 Urine Specific 1.008 [place] Urine Ketones NEGATIVE Urine Nitrite NEGATIVE Urine Bilirubin NEGATIVE Urine Urobilinogen NEGATIVE Urine Leukocyte TRACE A Esterase Urine Microscopic 0 RBC Urine Microscopic 1 WBC Urine Squamous FEW Epithelial Cells Urine Bacteria FEW A Urine Hemoglobin NEGATIVE Urine Glucose NEGATIVE Urine Total Protein NEGATIVE Test 03/21/19 16:45 Bedside Glucose 110 Subjective 24 Hr Interval Summary Subjective hx not possible: pt non-verbal (sleeping) Exam/Review of Systems Exam Vitals VS - Last 72 Hours, by Label Date Temp Pulse Resp B/P (MAP) Pulse Ox O2 O2 Flow FiO2 Time Delivery Rate 03/21/19 97.8 80 17 149/79 98 19:40 (102) 03/21/19 97.3 80 20 126/60 94 Room Air 15:11 (82) 03/21/19 97.7 74 20 135/73 95 Room Air 11:13 (93) 03/21/19 98.0 83 20 135/74 95 Room Air 07:09 (94) 03/21/19 97.9 78 17 141/64 96 04:07 (89) 03/21/19 97.9 59 17 135/68 98 00:20 (90) 03/20/19 97.8 60 17 143/64 98 19:13 (90) 03/20/19 98.0 62 22 147/67 96 Room Air 15:37 (93) 03/20/19 97.6 75 22 145/65 96 Room Air 11:37 (91) 03/20/19 98.0 66 22 133/66 96 Room Air 07:33 (88) 03/20/19 98.1 63 18 153/69 97 04:21 (97) 03/20/19 98.7 68 18 124/70 98 00:44 (88) 03/19/19 98.6 80 20 128/60 95 20:07 (82) 03/19/19 98.0 70 18 133/62 98 16:09 (85) 03/19/19 98.0 70 18 140/66 98 12:33 (90) 03/19/19 98.0 73 18 167/72 98 08:08 (103) 03/19/19 97.7 67 18 151/72 94 04:36 (98) 03/19/19 98.3 54 18 137/63 95 00:00 (87) 03/18/19 97.8 61 18 112/56 97 20:13 (74) Vital Signs Date Temp Pulse Resp B/P (MAP) Pulse Ox O2 O2 Flow FiO2 Time Delivery Rate 03/21/19 97.8 80 17 149/79 98 19:40 (102) 03/21/19 Room Air 15:11 Intake and Output 03/20/19 03/20/19 03/21/19 1515:00 23:00 07:00 IntakeIntake Total 350 ml 600 ml 100 ml OutputOutput Total 300 ml 2 ml BalanceBalance 50 ml 598 ml 100 ml Constitutional: well developed, non-verbal; No alert (sleeping), No oriented Respiratory: clear to auscultation, normal air movement Cardiovascular: regular rate and rhythm, nl pulses; No edema, No murmurs/extra sounds, No rub Gastrointestinal: soft, nl liver, spleen, non-tender, bowel sounds; No mass, No rebound or guarding Musculoskeletal: nl extremities to inspection Extremities: normal pulses; No cyanosis, No clubbing, No edema Neurological: MAIN[employer] SYSTEMS ADMINISTRATOR II-XII intact, nl strength, lethargic; No nl mental status, No nl speech Additional Comments Bedside Glucose - 72 Hours Test 03/18/19 20:34 03/19/19 07:50 03/19/19 11:47 03/19/19 20:43 Bedside 110 93 119 152 Glucose mg/dL (70-220) mg/dL (70-220) mg/dL (70-220) mg/dL (70-220) Test 03/20/19 08:13 03/20/19 12:39 03/20/19 16:50 03/20/19 21:30 Bedside 77 93 106 104 Glucose mg/dL (70-220) mg/dL (70-220) mg/dL (70-220) mg/dL (70-220) Test 03/21/19 08:17 03/21/19 11:56 03/21/19 16:45 Bedside 99 112 110 Glucose mg/dL (70-220) mg/dL (70-220) mg/dL (70-220) Results Results 24hrs Laboratory Tests Test 03/20/19 21:30 03/21/19 07:11 03/21/19 08:17 03/21/19 11:56 Bedside Glucose 104 99 112 Urine Color STRAW Urine Clarity CLEAR Urine pH 6.0 Urine Specific 1.008 [place] Urine Ketones NEGATIVE Urine Nitrite NEGATIVE Urine Bilirubin NEGATIVE Urine Urobilinogen NEGATIVE Urine Leukocyte TRACE A Esterase Urine Microscopic 0 RBC Urine Microscopic 1 WBC Urine Squamous FEW Epithelial Cells Urine Bacteria FEW A Urine Hemoglobin NEGATIVE Urine Glucose NEGATIVE Urine Total Protein NEGATIVE Test 03/21/19 16:45 Bedside Glucose 110 Medications Medication Current Medications Atorvastatin Calcium (Lipitor) 10 mg QHS PO Last administered on 03/20/19at 21:31; Admin Dose 10 MG; Start 03/17/19 at 21:00 Carisoprodol (Soma) 350 mg HS PRN PO MUSCLE SPASMS; Start 03/16/19 at 22:30 Duloxetine HCl (Cymbalta) 60 mg BID PO Last administered on 03/21/19at 08:18; Admin Dose 60 MG; Start 03/17/19 at 09:00 Loratadine (Claritin) 10 mg DAILY PO Last administered on 03/21/19at 08:18; Admin Dose 10 MG; Start 03/17/19 at 09:00 Pantoprazole (Protonix Tab) 40 mg AC BREAKFAST PO Last administered on 03/21/19at 06:28; Admin Dose 40 MG; Start 03/17/19 at 07:00 Linagliptin (Tradjenta) 5 mg DAILY PO Last administered on 03/21/19at 08:17; Admin Dose 5 MG; Start 03/17/19 at 09:00 IV Flush (NS 3 ml) 3 ml PER PROTOCOL IV ; Start 03/16/19 at 22:30 Ondansetron HCl (Zofran Inj) 4 mg Q6H PRN IV NAUSEA/VOMITING; Start 03/16/19 at 22:30 Nitroglycerin (Nitroglycerin (Sl Tab) 0.4 Mg) 1 tab Q5M PRN SL .CHEST PAIN; Start 03/16/19 at 22:30 Acetaminophen (Tylenol Tab) 650 mg Q6H PRN PO .PAIN 1-3 OR TEMP; Start 03/16/19 at 22:30 Acetaminophen/ Hydrocodone Bitart ([place] (5/325)) 1 tab Q6H PRN PO .PAIN 4-6; Start 03/16/19 at 22:30 Acetaminophen/ Hydrocodone Bitart ([place] (5/325)) 2 tab Q6H PRN PO .PAIN 7-10; Start 03/16/19 at 22:30 Docusate Sodium (Colace) 100 mg Q12H PRN PO .CONSTIPATION; Start 03/16/19 at 22:30 Magnesium Hydroxide (Milk Of Mag) 30 ml DAILY PRN PO .CONSTIPATION; Start 03/16/19 at 22:30 Bisacodyl (Dulcolax Supp) 10 mg DAILY PRN [place] .CONSTIPATION; Start 03/16/19 at 22:30 Heparin Sodium (Porcine) (Heparin (5000 Units/1ml)) 5,000 unit Q12 SC Last ad ministered on 03/21/19at 08:28; Admin Dose 5,000 UNIT; Start 03/17/19 at 09:00 Levofloxacin (Levaquin) 250 mg DAILY@06 PO Last administered on 03/21/19at 06:28; Admin Dose 250 MG; Start 03/18/19 at 06:00; Stop 03/24/19 at 05:59 Insulin Aspart (Novolog Insulin Pen) NOVOLOG *MILD* ALGORITHM WITH MEALS B EDTIME SC Last administered on 03/19/19at 20:59; Admin Dose 1 UNIT; Start 03/17/19 at 08:00 Miscellaneous Information 1 ea NOTE XX ; Start 03/17/19 at 08:00 Glucose (Glutose) 15 gm Q15M PRN PO DECREASED GLUCOSE; Start 03/17/19 at 08:00 Glucose (Glutose) 22.5 gm Q15M PRN PO DECREASED GLUCOSE; Start 03/17/19 at 08:00 Dextrose (D50w Syringe) 25 ml Q15M PRN IV DECREASED GLUCOSE; Start 03/17/19 at 08:00 Dextrose (D50w Syringe) 50 ml Q15M PRN IV DECREASED GLUCOSE; Start 03/17/19 at 08:00 Glucagon (Glucagen) 1 mg Q15M PRN IM DECREASED GLUCOSE; Start 03/17/19 at 08:00 Glucose (Glutose) 15 gm Q15M PRN BUCCAL DECREASED GLUCOSE; Start 03/17/19 at 08:00 Fluticasone Propionate (Flonase 0.05% Nasal) 2 spray DAILY NASAL Last administered on 03/21/19at 08:19; Admin Dose 2 SPRAY; Start 03/17/19 at 10:00 Oxybutynin Chloride (Ditropan Xl) 5 mg DAILY PO Last administered on 03/21/19at 08:17; Admin Dose 5 MG; Start 03/19/19 at 15:00 Losartan Potassium (Cozaar) 50 mg DAILY PO Last administered on 03/21/19at 08:1 8; Admin Dose 50 MG; Start 03/20/19 at 13:00 Quetiapine Fumarate (Seroquel) 12.5 mg QHS PO ; Start 03/21/19 at 21:00 Pregabalin (Lyrica) 50 mg TID PO ; Start 03/21/19 at 21:00 Metoprolol Succinate (Toprol Xl) 50 mg DAILY PO ; Start 03/22/19 at 09:00 PASCUAL CORNELIUS MD Mar 21, 2019 20:10
[2019-03-21] MEDS: QUETIAPINE 25 MG TAB PO SCH (21:00)
[2019-03-21] MEDS: ATORVASTATIN 10 MG TAB PO SCH (23:27)
[2019-03-21] MEDS: PREGABALIN 50 MG CAP PO SCH (23:28)
[2019-03-22] VITALS: BP 177/88; PULSE 83; RESP 17
[2019-03-22] MEDS: HEPARIN 5,000 UNIT/1 ML VIAL SC SCH ×3 (00:20→21:48)
[2019-03-22 04:40] VITALS: BP 127/71; PULSE 83; RESP 17
[2019-03-22] MEDS: LEVOFLOXACIN 250 MG TAB PO SCH (05:55)
[2019-03-22 07:28] VITALS: BP 135/65; PULSE 87; RESP 20
[2019-03-22] MEDS: INSULIN ASPART [NOVOLOG] 3 ML PEN SC SCH ×4 (07:37→21:00)
[2019-03-22] MEDS: PANTOPRAZOLE (EC) 40 MG TAB PO SCH (07:40)
[2019-03-22] MEDS: HYDROCODONE/APAP (5/325) TAB PO PRN ×2 (07:40→13:53)
[2019-03-22] MEDS ORDERED: MAGNESIUM SULFATE 4 GM/100 ML 100 ML IVPB ONE ×2 (09:00→13:00)
[2019-03-22] MEDS: LINAGLIPTIN 5 MG TABLET PO SCH (09:31)
[2019-03-22] MEDS: LORATADINE 10 MG TAB PO SCH (09:31)
[2019-03-22] MEDS: FLUTICASONE 0.05% 16 GM NAS SPRAY NASAL SCH (09:31)
[2019-03-22] MEDS: LOSARTAN 50 MG TAB PO SCH (09:31)
[2019-03-22] MEDS: DULOXETINE 30 MG CAP DR PO SCH ×2 (09:31→21:35)
[2019-03-22] MEDS: METOPROLOL (XL) 50 MG TAB PO SCH (09:37)
[2019-03-22] MEDS: PREGABALIN 50 MG CAP PO SCH ×2 (10:59→17:16)
[2019-03-22 11:13] VITALS: BP 107/59; PULSE 82; RESP 20
--- NOTE | 2019-03-22 12:43 | CONS ---
Assessment/Plan Assessment/Plan Hospital Course (Demo Recall) Digoxin toxicity-resolved Acute kidney injury, improving Preserved ejection fraction Labile blood pressure History of atrial tachycardia Diabetes Patient presented with acute kidney injury, hyperkalemia and elevated digoxin level Renal function has improved Patient with atrial tachycardia this morning, less induration compared to prior after increase of Toprol. We will continue current dose Given dizziness with physical therapy and standing up, would decrease dose of losartan Will order magnesium supplementation Consultation Date/Type/Reason Admit Date/Time Mar 16, 2019 at 19:44 Initial Consult Date Type of Consult Cardiology Date/Time of Note DATE: 03/22/19 TIME: 12:42 24 HR Interval Summary Free Text/Dictation [place] dizzy with physical therapy today with standing. No symptoms now in bed. No palpitations Exam/Review of Systems Vital Signs Vitals Vital Signs Date Temp Pulse Resp B/P (MAP) Pulse Ox O2 O2 Flow FiO2 Time Delivery Rate 03/22/19 97.3 82 20 107/59 96 Room Air 11:13 (75) Exam Constitutional: alert, oriented (No apparent distress) Head: normocephalic Respiratory: other (Coarse breath sounds bilaterally, no wheezing) Cardiovascular: regular rate and rhythm (S1-S2 heard) Gastrointestinal: soft, non-tender, bowel sounds Extremities: other (No significant edema) Labs Result Diagram: 03/22/19 0607 03/22/19 0607 Results 24hrs Laboratory Tests Test 03/21/19 16:45 03/21/19 20:44 03/22/19 02:38 03/22/19 06:07 Bedside Glucose 110 97 98 White Blood Count 8.5 Red Blood Count 3.98 #L Hemoglobin 11.3 L Hematocrit 35.8 #L Mean Corpuscular 89.9 Volume Mean Corpuscular 28.4 L Hemoglobin Mean Corpuscular 31.6 L Hemoglobin Concent Red Cell 14.6 H Distribution Width Platelet Count 314 Mean Platelet Volume 10.7 H Immature 0.400 Granulocytes % Neutrophils % 70.4 Lymphocytes % 15.7 Monocytes % 10.8 Eosinophils % 1.9 Basophils % 0.8 Nucleated Red Blood 0.0 Cells % Immature 0.030 Granulocytes # Neutrophils # 6.0 Lymphocytes # 1.3 Monocytes # 0.9 Eosinophils # 0.2 Basophils # 0.1 Nucleated Red Blood 0.0 Cells # Sodium Level 146 H Potassium Level 4.5 Chloride Level 108 Carbon Dioxide Level 30 Anion Gap 8 Blood Urea Nitrogen 21 H Creatinine 0.78 Est Glomerular Filtrat Rate mL/min Glucose Level 116 Calcium Level 9.8 Magnesium Level 1.1 L Test 03/22/19 07:37 03/22/19 11:57 Bedside Glucose 100 199 Medications Medications Current Medications Atorvastatin Calcium (Lipitor) 10 mg QHS PO Last administered on 03/21/19 23:27; Admin Dose 10 MG; Start 03/17/19 at 21:00 Carisoprodol (Soma) 350 mg HS PRN PO MUSCLE SPASMS; Start 03/16/19 at 22:30 Duloxetine HCl (Cymbalta) 60 mg BID PO Last administered on 03/22/19 09:31; Admin Dose 60 MG; Start 03/17/19 at 09:00 Loratadine (Claritin) 10 mg DAILY PO Last administered on 03/22/19 09:31; Adm in Dose 10 MG; Start 03/17/19 at 09:00 Pantoprazole (Protonix Tab) 40 mg AC BREAKFAST PO Last administered on 03/22/19 07:40; Admin Dose 40 MG; Start 03/17/19 at 07:00 Linagliptin (Tradjenta) 5 mg DAILY PO Last administered on 03/22/19 09:31; Admin Dose 5 MG; Start 03/17/19 at 09:00 IV Flush (NS 3 ml) 3 ml PER PROTOCOL IV ; Start 03/16/19 at 22:30 Ondansetron HCl (Zofran Inj) 4 mg Q6H PRN IV NAUSEA/VOMITING; Start 03/16/19 at 22:30 Nitroglycerin (Nitroglycerin (Sl Tab) 0.4 Mg) 1 tab Q5M PRN [place] .CHEST PAIN; Start 03/16/19 at 22:30 Acetaminophen (Tylenol Tab) 650 mg Q6H PRN PO .PAIN 1-3 OR TEMP; Start 03/16/19 at 22:30 Acetaminophen/ Hydrocodone Bitart ([place] (5/325)) 1 tab Q6H PRN PO .PAIN 4-6 Last administered on 03/22/19 07:40; Admin Dose 1 TAB; Start 03/16/19 at 22:30 Acetaminophen/ Hydrocodone Bitart ([place] (5/325)) 2 tab Q6H PRN PO .PAIN 7-10; Start 03/16/19 at 22:30 Docusate Sodium (Colace) 100 mg Q12H PRN PO .CONSTIPATION; Start 03/16/19 at 22:30 Magnesium Hydroxide (Milk Of Mag) 30 ml DAILY PRN PO .CONSTIPATION; Start 03/16/19 at 22:30 Bisacodyl (Dulcolax Supp) 10 mg DAILY PRN [place] .CONSTIPATION; Start 03/16/19 at 22:30 Heparin Sodium (Porcine) (Heparin (5000 Units/1ml)) 5,000 unit Q12 SC Last administered on 03/22/19at 09:47; Admin Dose 5,000 UNIT; Start 03/17/19 at 09:00 Levofloxacin (Levaquin) 250 mg DAILY@06 PO Last administered on 03/22/19at 05:55; Admin Dose 250 MG; Start 03/18/19 at 06:00; Stop 03/24/19 at 05:59 Insulin Aspart (Novolog Insulin Pen) NOVOLOG *MILD* ALGORITHM WITH MEALS BEDTIME SC Last administered on 03/22/19at 12:03; Admin Dose 2 UNIT; Start at 08:00 Miscellaneous Information 1 ea NOTE XX ; Start 03/17/19 at 08:00 Glucose (Glutose) 15 gm Q15M PRN PO DECREASED GLUCOSE; Start 03/17/19 at 08:00 Glucose (Glutose) 22.5 gm Q15M PRN PO DECREASED GLUCOSE; Start 03/17/19 at 08:00 Dextrose (D50w Syringe) 25 ml Q15M PRN IV DECREASED GLUCOSE; Start 03/17/19 at 08:00 Dextrose (D50w Syringe) 50 ml Q15M PRN IV DECREASED GLUCOSE; Start 03/17/19 at 08:00 Glucagon (Glucagen) 1 mg Q15M PRN IM DECREASED GLUCOSE; Start 03/17/19 at 08:00 Glucose (Glutose) 15 gm Q15M PRN BUCCAL DECREASED GLUCOSE; Start 03/17/19 at 08:00 Fluticasone Propionate (Flonase 0.05% Nasal) 2 spray DAILY NASAL Last administered on 03/22/19at 09:31; Admin Dose 2 SPRAY; Start 03/17/19 at 10:00 Oxybutynin Chloride (Ditropan Xl) 5 mg DAILY PO Last administered on 03/21/19 08:17; Admin Dose 5 MG; Start 03/19/19 at 15:00 Losartan Potassium (Cozaar) 50 mg DAILY PO Last administered on 03/22/19 09:31; Admin Dose 50 MG; Start 03/20/19 at 13:00 Quetiapine Fumarate (Seroquel) 12.5 mg QHS PO Last administered on 03/21/19 21:00; Admin Dose 12.5 MG; Start 03/21/19 at 21:00 Pregabalin (Lyrica) 50 mg TID PO Last administered on 03/22/19 10:59; Admin Dose 50 MG; Start 03/21/19 at 21:00 Metoprolol Succinate (Toprol Xl) 50 mg DAILY PO Last administered on 03/22/19 09:37; Admin Dose 50 MG; Start 03/22/19 at 09:00 Magnesium Sulfate 100 ml @ 25 mls/hr ONCE ONCE IVPB Last administered on 03/22/19 09:26; Admin Dose 25 MLS/HR; Start 03/22/19 at 09:00; Stop 03/22/19 at 12:59 Rishi Bertrand DO Mar 22, 2019 12:43
[2019-03-22] MEDS: OXYBUTYNIN (XL) 5 MG TAB PO SCH (13:36)
[2019-03-22 14:58] VITALS: BP 105/55; PULSE 82; RESP 20
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
[2019-03-22 20:00] VITALS: BP 100/49; PULSE 78; RESP 16
[2019-03-22] MEDS: QUETIAPINE 25 MG TAB PO SCH (21:36)
[2019-03-22] MEDS: ATORVASTATIN 10 MG TAB PO SCH (21:36)
[2019-03-23 00:13] VITALS: BP 111/54; PULSE 70; RESP 18
[2019-03-23 04:41] VITALS: BP 95/55; PULSE 80; RESP 20
[2019-03-23] MEDS: LEVOFLOXACIN 250 MG TAB PO SCH (05:47)
[2019-03-23 07:37] VITALS: BP 112/61; PULSE 85; RESP 18
[2019-03-23] MEDS: INSULIN ASPART [NOVOLOG] 3 ML PEN SC SCH ×4 (07:55→20:17)
[2019-03-23] MEDS: METOPROLOL (XL) 50 MG TAB PO SCH (09:00)
[2019-03-23] MEDS: LOSARTAN 25 MG TAB PO SCH (09:00)
[2019-03-23] MEDS: HEPARIN 5,000 UNIT/1 ML VIAL SC SCH ×2 (09:00→20:33)
[2019-03-23] MEDS: FLUTICASONE 0.05% 16 GM NAS SPRAY NASAL SCH (09:00)
[2019-03-23] MEDS: PREGABALIN 50 MG CAP PO SCH ×2 (09:00→20:16)
[2019-03-23] MEDS: DULOXETINE 30 MG CAP DR PO SCH ×2 (09:59→20:17)
[2019-03-23] MEDS: PANTOPRAZOLE (EC) 40 MG TAB PO SCH (10:00)
[2019-03-23] MEDS: LINAGLIPTIN 5 MG TABLET PO SCH (10:01)
[2019-03-23] MEDS: LORATADINE 10 MG TAB PO SCH (10:01)
[2019-03-23] MEDS: OXYBUTYNIN (XL) 5 MG TAB PO SCH (10:02)
[2019-03-23] MEDS: HYDROCODONE/APAP (5/325) TAB PO PRN (10:24)
[2019-03-23 11:16] VITALS: BP 112/59; PULSE 80; RESP 18
--- NOTE | 2019-03-23 12:24 | CONS ---
Assessment/Plan Assessment/Plan Assessment/Plan (Daily) Assessment Digoxin toxicity-resolved Acute kidney injury, improving Preserved ejection fraction Labile blood pressure History of atrial tachycardia Diabetes Plan: rhythm stable no change in cardiac meds Consultation Date/Type/Reason Admit Date/Time Mar 16, 2019 at 19:44 Initial Consult Date Type of Consult Cardiology Date/Time of Note DATE: 03/23/19 TIME: 12:23 24 HR Interval Summary Free Text/Dictation no chest pain, no sob, no palpitations Detailed Summary Respiratory: no complaints Cardiovascular: no complaints Musculoskeletal: no complaints Neurologic: no complaints Exam/Review of Systems Vital Signs Vitals Vital Signs Date Temp Pulse Resp B/P (MAP) Pulse Ox O2 O2 Flow FiO2 Time Delivery Rate 03/23/19 97.5 80 18 112/59 93 Room Air 11:16 (76) Intake and Output 03/22/19 03/22/19 03/23/19 1515:00 23:00 07:00 IntakeIntake Total 720 ml 240 ml 100 ml OutputOutput Total 450 ml BalanceBalance 720 ml 240 ml -350 ml Exam Constitutional: frail Head: normocephalic, atraumatic Neck: supple Respiratory: clear to auscultation Cardiovascular: regular rate and rhythm Gastrointestinal: soft Musculoskeletal: nl extremities to inspection Labs Result Diagram: 03/23/19 0606 03/23/19 0606 Results 24hrs Laboratory Tests Test 03/22/19 21:30 03/23/19 06:06 03/23/19 08:06 Bedside Glucose 129 122 White Blood Count 9.7 Red Blood Count 3.35 L Hemoglobin 9.6 L Hematocrit 30.7 L Mean Corpuscular Volume 91.6 Mean Corpuscular Hemoglobin 28.7 L Mean Corpuscular Hemoglobin Concent 31.3 L Red Cell Distribution Width 14.6 H Platelet Count 279 Mean Platelet Volume 10.7 H Immature Granulocytes % 0.400 Neutrophils % 72.1 Lymphocytes % 11.8 L Monocytes % 14.4 H Eosinophils % 0.7 Basophils % 0.6 Nucleated Red Blood Cells % 0.0 Immature Granulocytes # 0.040 H Neutrophils # 7.0 Lymphocytes # 1.2 Monocytes # 1.4 H Eosinophils # 0.1 Basophils # 0.1 Nucleated Red Blood Cells # 0.0 Sodium Level 140 Potassium Level 4.5 Chloride Level 102 Carbon Dioxide Level 28 Anion Gap 10 Blood Urea Nitrogen 45 #H Creatinine 1.95 #H Est Glomerular Filtrat Rate mL/min Glucose Level 124 Calcium Level 9.6 Magnesium Level 2.1 # Medications Medications Current Medications Atorvastatin Calcium (Lipitor) 10 mg QHS PO Last administered on 03/22/19at 21:36; Admin Dose 10 MG; Start 03/17/19 at 21:00 Carisoprodol (Soma) 350 mg HS PRN PO MUSCLE SPASMS; Start 03/16/19 at 22:30 Duloxetine HCl (Cymbalta) 60 mg BID PO Last administered on 03/23/19 09:59; Admin Dose 60 MG; Start 03/17/19 at 09:00 Loratadine (Claritin) 10 mg DAILY PO Last administered on 03/23/19 10:01; Admin Dose 10 MG; Start 03/17/19 at 09:00 Pantoprazole (Protonix Tab) 40 mg AC BREAKFAST PO Last administered on 03/23/19 10:00; Admin Dose 40 MG; Start 03/17/19 at 07:00 Linagliptin (Tradjenta) 5 mg DAILY PO Last administered on 03/23/19 10:01; Admin Dose 5 MG; Start 03/17/19 at 09:00 IV Flush (NS 3 ml) 3 ml PER PROTOCOL IV ; Start 03/16/19 at 22:30 Ondansetron HCl (Zofran Inj) 4 mg Q6H PRN IV NAUSEA/VOMITING; Start 03/16/19 at 22:30 Nitroglycerin (Nitroglycerin (Sl Tab) 0.4 Mg) 1 tab Q5M PRN SL .CHEST PAIN; Start 03/16/19 at 22:30 Acetaminophen (Tylenol Tab) 650 mg Q6H PRN PO .PAIN 1-3 OR TEMP; Start 03/16/19 at 22:30 Acetaminophen/ Hydrocodone Bitart ([place] (5/325)) 1 tab Q6H PRN PO .PAIN 4-6 Last administered on 03/23/19 10:24; Admin Dose 1 TAB; Start 03/16/19 at 22:30 Acetaminophen/ Hydrocodone Bitart ([place] (5/325)) 2 tab Q6H PRN PO .PAIN 7-10; Start 03/16/19 at 22:30 Docusate Sodium (Colace) 100 mg Q12H PRN PO .CONSTIPATION; Start 03/16/19 at 22:30 Magnesium Hydroxide (Milk Of Mag) 30 ml DAILY PRN PO .CONSTIPATION; Start 03/16/19 at 22:30 Bisacodyl (Dulcolax Supp) 10 mg DAILY PRN [place] .CONSTIPATION; Start 03/16/19 at 22:30 Heparin Sodium (Porcine) (Heparin (5000 Units/1ml)) 5,000 unit Q12 SC Last administered on 03/23/19at 09:00; Admin Dose 5,000 UNIT; Start 03/17/19 at 09:00 Levofloxacin (Levaquin) 250 mg DAILY@06 PO Last administered on 03/23/19at 05:47; Admin Dose 250 MG; Start 03/18/19 at 06:00; Stop 03/24/19 at 05:59 Insulin Aspart (Novolog Insulin Pen) NOVOLOG *MILD* ALGORITHM WITH MEALS BEDTIME SC Last administered on 03/22/19at 17:22; Admin Dose 1 UNIT; Start 03/17/19 at 08:00 Miscellaneous Information 1 ea NOTE XX ; Start 03/17/19 at 08:00 Glucose (Glutose) 15 gm Q15M PRN PO DECREASED GLUCOSE; Start 03/17/19 at 08:00 Glucose (Glutose) 22.5 gm Q15M PRN PO DECREASED GLUCOSE; Start 03/17/19 at 08:00 Dextrose (D50w Syringe) 25 ml Q15M PRN IV DECREASED GLUCOSE; Start 03/17/19 at 08:00 Dextrose (D50w Syringe) 50 ml Q15M PRN IV DECREASED GLUCOSE; Start 03/17/19 at 08:00 Glucagon (Glucagen) 1 mg Q15M PRN IM DECREASED GLUCOSE; Start 03/17/19 at 08:00 Glucose (Glutose) 15 gm Q15M PRN BUCCAL DECREASED GLUCOSE; Start 03/17/19 at 08:00 Fluticasone Propionate (Flonase 0.05% Nasal) 2 spray DAILY NASAL Last administered on 03/23/19at 09:00; Admin Dose 2 SPRAY; Start 03/17/19 at 10:00 Oxybutynin Chloride (Ditropan Xl) 5 mg DAILY PO Last administered on 03/23/19at 10:02; Admin Dose 5 MG; Start 03/19/19 at 15:00 Quetiapine Fumarate (Seroquel) 12.5 mg QHS PO Last administered on 03/22/19at 21:36; Admin Dose 12.5 MG; Start 03/21/19 at 21:00 Metoprolol Succinate (Toprol Xl) 50 mg DAILY PO Last administered on 03/22/19at 09:37; Admin Dose 50 MG; Start 03/22/19 at 09:00 Losartan Potassium (Cozaar) 25 mg DAILY PO Last administered on 03/23/19at 09:00; Admin Dose 25 MG; Start 03/23/19 at 09:00 Pregabalin (Lyrica) 50 mg BID PO ; Start 03/23/19 at 09:00 LISA ROSARIO MD Mar 23, 2019 12:24
--- NOTE | 2019-03-23 14:31 | PN ---
Date/Time of Note Date/Time of Note DATE: 03/23/19 TIME: 14:23 Assessment/Plan VTE Prophylaxis Risk score (from Ns)>0 risk: 4 SCD applied (from Ns): Yes SCD contraindicated: other Pharmacological prophylaxis: other Lines/Catheters IV Catheter Type (from Nrs): Saline Lock [place] line still needed: No Urinary Cath still in place: No Assessment/Plan Hospital Course Patient clinically stable to transfer to [facility]-surgery floor room at RN station. Problems: (1) Left upper arm injury Status: Acute Comment: No fracture per radiology. PT to work with patient Qualifiers: Encounter type: initial encounter Qualified Codes: S49.92XA - Unspecified injury of left shoulder and upper arm, initial encounter (2) Diabetes mellitus type 2 with complications Status: Chronic Comment: good control (3) Hypertension Status: Chronic Comment: good control (4) Digoxin toxicity Status: Resolved Qualifiers: Encounter type: initial encounter Injury intent: accidental or unintentional Qualified Codes: T46.0X1A - Poisoning by cardiac-stimulant glycosides and drugs of similar action, accidental (unintentional), initial encounter (5) Major depressive disorder, recurrent, in full remission Status: Chronic Comment: per RN patient has been low motivation today. (6) Visual hallucinations Status: Acute Comment: Improved with reduction with Lyrica. Less agitated (7) Hypomagnesemia Status: Acute Comment: levels with in normal today. Will re check tomorrow (8) Left maxillary sinusitis Status: Acute Comment: on antibiotic therapy (9) Lumbar stenosis with neurogenic claudication Status: Chronic Comment: on Lyrica Result Diagram: 03/23/19 0606 03/23/19 0606 Results 24hrs Laboratory Tests Test 03/22/19 21:30 03/23/19 06:06 03/23/19 08:06 Bedside Glucose 129 122 White Blood Count 9.7 Red Blood Count 3.35 L Hemoglobin 9.6 L Hematocrit 30.7 L Mean Corpuscular Volume 91.6 Mean Corpuscular Hemoglobin 28.7 L Mean Corpuscular Hemoglobin Concent 31.3 L Red Cell Distribution Width 14.6 H Platelet Count 279 Mean Platelet Volume 10.7 H Immature Granulocytes % 0.400 Neutrophils % 72.1 Lymphocytes % 11.8 L Monocytes % 14.4 H Eosinophils % 0.7 Basophils % 0.6 Nucleated Red Blood Cells % 0.0 Immature Granulocytes # 0.040 H Neutrophils # 7.0 Lymphocytes # 1.2 Monocytes # 1.4 H Eosinophils # 0.1 Basophils # 0.1 Nucleated Red Blood Cells # 0.0 Sodium Level 140 Potassium Level 4.5 Chloride Level 102 Carbon Dioxide Level 28 Anion Gap 10 Blood Urea Nitrogen 45 #H Creatinine 1.95 #H Est Glomerular Filtrat Rate mL/min Glucose Level 124 Calcium Level 9.6 Magnesium Level 2.1 # Subjective 24 Hr Interval Summary Free Text/Dictation Still with LUE pain Exam/Review of Systems Exam Vitals Vital Signs Date Temp Pulse Resp B/P (MAP) Pulse Ox O2 O2 Flow FiO2 Time Delivery Rate 03/23/19 97.5 80 18 112/59 93 Room Air 11:16 (76) Intake and Output 03/22/19 03/22/19 03/23/19 1515:00 23:00 07:00 IntakeIntake Total 720 ml 240 ml 100 ml OutputOutput Total 450 ml BalanceBalance 720 ml 240 ml -350 ml Constitutional: well developed Neck: supple Respiratory: clear to auscultation Cardiovascular: regular rate and rhythm Musculoskeletal: nl extremities to inspection Results Results 24hrs Laboratory Tests Test 03/22/19 21:30 03/23/19 06:06 03/23/19 08:06 Bedside Glucose 129 122 White Blood Count 9.7 Red Blood Count 3.35 L Hemoglobin 9.6 L Hematocrit 30.7 L Mean Corpuscular Volume 91.6 Mean Corpuscular Hemoglobin 28.7 L Mean Corpuscular Hemoglobin Concent 31.3 L Red Cell Distribution Width 14.6 H Platelet Count 279 Mean Platelet Volume 10.7 H Immature Granulocytes % 0.400 Neutrophils % 72.1 Lymphocytes % 11.8 L Monocytes % 14.4 H Eosinophils % 0.7 Basophils % 0.6 Nucleated Red Blood Cells % 0.0 Immature Granulocytes # 0.040 H Neutrophils # 7.0 Lymphocytes # 1.2 Monocytes # 1.4 H Eosinophils # 0.1 Basophils # 0.1 Nucleated Red Blood Cells # 0.0 Sodium Level 140 Potassium Level 4.5 Chloride Level 102 Carbon Dioxide Level 28 Anion Gap 10 Blood Urea Nitrogen 45 #H Creatinine 1.95 #H Est Glomerular Filtrat Rate mL/min Glucose Level 124 Calcium Level 9.6 Magnesium Level 2.1 # Medications Medication Current Medications Atorvastatin Calcium (Lipitor) 10 mg QHS PO Last administered on 03/22/19at 21:36; Admin Dose 10 MG; Start 03/17/19 at 21:00 Carisoprodol (Soma) 350 mg HS PRN PO MUSCLE SPASMS; Start 03/16/19 at 22:30 Duloxetine HCl (Cymbalta) 60 mg BID PO Last administered on 03/23/19 09:59; Admin Dose 60 MG; Start 03/17/19 at 09:00 Loratadine (Claritin) 10 mg DAILY PO Last administered on 03/23/19 10:01; Admin Dose 10 MG; Start 03/17/19 at 09:00 Pantoprazole (Protonix Tab) 40 mg AC BREAKFAST PO Last administered on 03/23/19 10:00; Admin Dose 40 MG; Start 03/17/19 at 07:00 Linagliptin (Tradjenta) 5 mg DAILY PO Last administered on 03/23/19 10:01; Admin Dose 5 MG; Start 03/17/19 at 09:00 IV Flush (NS 3 ml) 3 ml PER PROTOCOL IV ; Start 03/16/19 at 22:30 Ondansetron HCl (Zofran Inj) 4 mg Q6H PRN IV NAUSEA/VOMITING; Start 03/16/19 at 22:30 Nitroglycerin (Nitroglycerin (Sl Tab) 0.4 Mg) 1 tab Q5M PRN SL .CHEST PAIN; Start 03/16/19 at 22:30 Acetaminophen (Tylenol Tab) 650 mg Q6H PRN PO .PAIN 1-3 OR TEMP; Start 03/16/19 at 22:30 Acetaminophen/ Hydrocodone Bitart ([place] (5/325)) 1 tab Q6H PRN PO .PAIN 4-6 Last administered on 03/23/19at 10:24; Admin Dose 1 TAB; Start 03/16/19 at 22:30 Acetaminophen/ Hydrocodone Bitart ([place] (5/325)) 2 tab Q6H PRN PO .PAIN 7-10; Start 03/16/19 at 22:30 Docusate Sodium (Colace) 100 mg Q12H PRN PO .CONSTIPATION; Start 03/16/19 at 22:30 Magnesium Hydroxide (Milk Of Mag) 30 ml DAILY PRN PO .CONSTIPATION; Start 03/16/19 at 22:30 Bisacodyl (Dulcolax Supp) 10 mg DAILY PRN [place] .CONSTIPATION; Start 03/16/19 at 22:30 Heparin Sodium (Porcine) (Heparin (5000 Units/1ml)) 5,000 unit Q12 SC Last administered on 03/23/19at 09:00; Admin Dose 5,000 UNIT; Start 03/17/19 at 09:00 Levofloxacin (Levaquin) 250 mg DAILY@06 PO Last administered on 03/23/19at 05:47; Admin Dose 250 MG; Start 03/18/19 at 06:00; Stop 03/24/19 at 05:59 Insulin Aspart (Novolog Insulin Pen) NOVOLOG *MILD* ALGORITHM WITH MEALS BEDTIME SC Last administered on 03/22/19at 17:22; Admin Dose 1 UNIT; Start 03/17/19 at 08:00 Miscellaneous Information 1 ea NOTE XX ; Start 03/17/19 at 08:00 Glucose (Glutose) 15 gm Q15M PRN PO DECREASED GLUCOSE; Start 03/17/19 at 08:00 Glucose (Glutose) 22.5 gm Q15M PRN PO DECREASED GLUCOSE; Start 03/17/19 at 08:00 Dextrose (D50w Syringe) 25 ml Q15M PRN IV DECREASED GLUCOSE; Start 03/17/19 at 08:00 Dextrose (D50w Syringe) 50 ml Q15M PRN IV DECREASED GLUCOSE; Start 03/17/19 at 08:00 Glucagon (Glucagen) 1 mg Q15M PRN IM DECREASED GLUCOSE; Start 03/17/19 at 08:00 Glucose (Glutose) 15 gm Q15M PRN BUCCAL DECREASED GLUCOSE; Start 03/17/19 at 08:00 Fluticasone Propionate (Flonase 0.05% Nasal) 2 spray DAILY NASAL Last administered on 03/23/19at 09:00; Admin Dose 2 SPRAY; Start 03/17/19 at 10:00 Oxybutynin Chloride (Ditropan Xl) 5 mg DAILY PO Last administered on 03/23/19at 10:02; Admin Dose 5 MG; Start 03/19/19 at 15:00 Quetiapine Fumarate (Seroquel) 12.5 mg QHS PO Last administered on 03/22/19at 21:36; Admin Dose 12.5 MG; Start 03/21/19 at 21:00 Metoprolol Succinate (Toprol Xl) 50 mg DAILY PO Last administered on 03/22/19at 09:37; Admin Dose 50 MG; Start 03/22/19 at 09:00 Losartan Potassium (Cozaar) 25 mg DAILY PO Last administered on 03/23/19at 09:00; Admin Dose 25 MG; Start 03/23/19 at 09:00 Pregabalin (Lyrica) 50 mg BID PO ; Start 03/23/19 at 09:00 MARSHA PEARL MD Mar 23, 2019 14:31
[2019-03-23 15:24] VITALS: BP 127/60; PULSE 82; RESP 18
[2019-03-23 20:00] VITALS: BP 108/53; PULSE 87; RESP 18
[2019-03-23] MEDS: QUETIAPINE 25 MG TAB PO SCH (20:16)
[2019-03-23] MEDS: ATORVASTATIN 10 MG TAB PO SCH (20:17)
[2019-03-24] VITALS: BP 124/58; PULSE 76; RESP 19
[2019-03-24 02:43] VITALS: BP 115/58; PULSE 73; RESP 18
[2019-03-24] MEDS: PANTOPRAZOLE (EC) 40 MG TAB PO SCH ×2 (06:20→08:38)
[2019-03-24 08:09] VITALS: BP 128/60; PULSE 82; RESP 15
[2019-03-24] MEDS: INSULIN ASPART [NOVOLOG] 3 ML PEN SC SCH ×4 (08:30→20:39)
[2019-03-24] MEDS: METOPROLOL (XL) 50 MG TAB PO SCH (08:37)
[2019-03-24] MEDS: LOSARTAN 25 MG TAB PO SCH (08:37)
[2019-03-24] MEDS: DULOXETINE 30 MG CAP DR PO SCH ×2 (08:38→20:29)
[2019-03-24] MEDS: LINAGLIPTIN 5 MG TABLET PO SCH (08:38)
[2019-03-24] MEDS: LORATADINE 10 MG TAB PO SCH (08:38)
[2019-03-24] MEDS: HEPARIN 5,000 UNIT/1 ML VIAL SC SCH ×2 (08:41→20:32)
[2019-03-24] MEDS: FLUTICASONE 0.05% 16 GM NAS SPRAY NASAL SCH (09:37)
[2019-03-24] MEDS: PREGABALIN 50 MG CAP PO SCH ×2 (09:37→20:33)
[2019-03-24] MEDS: OXYBUTYNIN (XL) 5 MG TAB PO SCH (09:37)
[2019-03-24 13:56] VITALS: BP 102/54; PULSE 72; RESP 15
--- NOTE | 2019-03-24 16:27 | PN ---
Date/Time of Note Date/Time of Note DATE: 03/24/19 TIME: 16:23 Assessment/Plan VTE Prophylaxis Risk score (from Ns)>0 risk: 4 SCD applied (from Ns): Yes SCD contraindicated: other Pharmacological prophylaxis: other Pharm contraindication: other Lines/Catheters IV Catheter Type (from Nrs): Saline Lock Urinary Cath still in place: No Assessment/Plan Hospital Course Clinically stable. D/C planning for SNF or Rehab Problems: (1) Left upper arm injury Status: Acute Qualifiers: Encounter type: initial encounter Qualified Codes: S49.92XA - Unspecified injury of left shoulder and upper arm, initial encounter (2) Diabetes mellitus type 2 with complications Status: Chronic (3) Hypertension Status: Chronic (4) Lumbar stenosis with neurogenic claudication Status: Chronic (5) Digoxin toxicity Status: Resolved Qualifiers: Encounter type: initial encounter Injury intent: accidental or unintentional Qualified Codes: T46.0X1A - Poisoning by cardiac-stimulant glycosides and drugs of similar action, accidental (unintentional), initial encounter (6) Major depressive disorder, recurrent, in full remission Status: Chronic (7) Left maxillary sinusitis Status: Acute Result Diagram: 03/23/19 0606 03/23/19 0606 Results 24hrs Laboratory Tests Test 03/23/19 17:55 03/23/19 20:14 03/24/19 08:06 03/24/19 09:35 Bedside Glucose 127 133 115 121 Test 03/24/19 12:23 Bedside Glucose 131 Subjective 24 Hr Interval Summary Free Text/Dictation Now with tender RUE and Left GT pain Exam/Review of Systems Exam Vitals Vital Signs Date Temp Pulse Resp B/P (MAP) Pulse Ox O2 O2 Flow FiO2 Time Delivery Rate 03/24/19 98.5 72 15 102/54 93 Room Air 13:56 (70) Intake and Output 03/23/19 03/23/19 03/24/19 1515:00 23:00 07:00 IntakeIntake Total 200 ml 500 ml 118 ml OutputOutput Total 900 ml 1200 ml BalanceBalance 200 ml -400 ml -1082 ml Exam Son at bedside Constitutional: alert, oriented Neck: supple Respiratory: normal air movement Cardiovascular: regular rate and rhythm Gastrointestinal: soft Musculoskeletal: nl extremities to inspection, other (Thickened toenal Left GT) Additional Comments POC glucose reviewed Results Results 24hrs Laboratory Tests Test 03/23/19 17:55 03/23/19 20:14 03/24/19 08:06 03/24/19 09:35 Bedside Glucose 127 133 115 121 Test 03/24/19 12:23 Bedside Glucose 131 Medications Medication Current Medications Atorvastatin Calcium (Lipitor) 10 mg QHS PO Last administered on 03/23/19 20:17; Admin Dose 10 MG; Start 03/17/19 at 21:00 Carisoprodol (Soma) 350 mg HS PRN PO MUSCLE SPASMS; Start 03/16/19 at 22:30 Duloxetine HCl (Cymbalta) 60 mg BID PO Last administered on 03/24/19 08:38; Admin Dose 60 MG; Start 03/17/19 at 09:00 Loratadine (Claritin) 10 mg DAILY PO Last administered on 03/24/19 08:38; Admin Dose 10 MG; Start 03/17/19 at 09:00 Pantoprazole (Protonix Tab) 40 mg AC BREAKFAST PO Last administered on 03/24/19 08:38; Admin Dose 40 MG; Start 03/17/19 at 07:00 Linagliptin (Tradjenta) 5 mg DAILY PO Last administered on 03/24/19 08:38; Admin Dose 5 MG; Start 03/17/19 at 09:00 IV Flush (NS 3 ml) 3 ml PER PROTOCOL IV ; Start 03/16/19 at 22:30 Ondansetron HCl (Zofran Inj) 4 mg Q6H PRN IV NAUSEA/VOMITING; Start 03/16/19 at 22:30 Nitroglycerin (Nitroglycerin (Sl Tab) 0.4 Mg) 1 tab Q5M PRN SL .CHEST PAIN; Start 03/16/19 at 22:30 Acetaminophen (Tylenol Tab) 650 mg Q6H PRN PO .PAIN 1-3 OR TEMP; Start 03/16/19 at 22:30 Acetaminophen/ Hydrocodone Bitart ([place] (5/325)) 1 tab Q6H PRN PO .PAIN 4-6 Last administered on 03/23/19at 10:24; Admin Dose 1 TAB; Start 03/16/19 at 22:30 Acetaminophen/ Hydrocodone Bitart ([place] (5/325)) 2 tab Q6H PRN PO .PAIN 7-10; Start 03/16/19 at 22:30 Docusate Sodium (Colace) 100 mg Q12H PRN PO .CONSTIPATION; Start 03/16/19 at 22:30 Magnesium Hydroxide (Milk Of Mag) 30 ml DAILY PRN PO .CONSTIPATION; Start 03/16/19 at 22:30 Bisacodyl (Dulcolax Supp) 10 mg DAILY PRN [place] .CONSTIPATION; Start 03/16/19 at 22:30 Heparin Sodium (Porcine) (Heparin (5000 Units/1ml)) 5,000 unit Q12 SC Last administered on 03/24/19at 08:41; Admin Dose 5,000 UNIT; Start 03/17/19 at 09:00 Insulin Aspart (Novolog Insulin Pen) NOVOLOG *MILD* ALGORITHM WITH MEALS BEDTIME SC Last administered on 03/22/19at 17:22; Admin Dose 1 UNIT; Start 03/17/19 at 08:00 Miscellaneous Information 1 ea NOTE XX ; Start 03/17/19 at 08:00 Glucose (Glutose) 15 gm Q15M PRN PO DECREASED GLUCOSE; Start 03/17/19 at 08:00 Glucose (Glutose) 22.5 gm Q15M PRN PO DECREASED GLUCOSE; Start 03/17/19 at 08:00 Dextrose (D50w Syringe) 25 ml Q15M PRN IV DECREASED GLUCOSE; Start 03/17/19 at 08:00 Dextrose (D50w Syringe) 50 ml Q15M PRN IV DECREASED GLUCOSE; Start 03/17/19 at 08:00 Glucagon (Glucagen) 1 mg Q15M PRN IM DECREASED GLUCOSE; Start 03/17/19 at 08:00 Glucose (Glutose) 15 gm Q15M PRN BUCCAL DECREASED GLUCOSE; Start 03/17/19 at 08:00 Fluticasone Propionate (Flonase 0.05% Nasal) 2 spray DAILY NASAL Last administered on 03/24/19at 09:37; Admin Dose 2 SPRAY; Start 03/17/19 at 10:00 Oxybutynin Chloride (Ditropan Xl) 5 mg DAILY PO Last administered on 03/24/19at 09:37; Admin Dose 5 MG; Start 03/19/19 at 15:00 Quetiapine Fumarate (Seroquel) 12.5 mg QHS PO Last administered on 03/23/19at 20:16; Admin Dose 12.5 MG; Start 03/21/19 at 21:00 Metoprolol Succinate (Toprol Xl) 50 mg DAILY PO Last administered on 03/24/19at 08:37; Admin Dose 50 MG; Start 03/22/19 at 09:00 Losartan Potassium (Cozaar) 25 mg DAILY PO Last administered on 03/24/19 08:37; Admin Dose 25 MG; Start 03/23/19 at 09:00 Pregabalin (Lyrica) 50 mg BID PO Last administered on 03/24/19at 09:37; Admin Dose 50 MG; Start 03/23/19 at 09:00 MARSHA PEARL MD Mar 24, 2019 16:27
--- NOTE | 2019-03-24 16:52 | CONS ---
Assessment/Plan Assessment/Plan Hospital Course (Demo Recall) Digoxin toxicity-resolved Acute kidney injury, improving Preserved ejection fraction Labile blood pressure History of atrial tachycardia Diabetes Patient presented with acute kidney injury, hyperkalemia and elevated digoxin level Renal function has improved Continue Toprol as heart rate and blood pressure permits Losartan dose recently decreased. Titrate as needed Consultation Date/Type/Reason Admit Date/Time Mar 16, 2019 at 19:44 Initial Consult Date Type of Consult Cardiology Date/Time of Note DATE: 03/24/19 TIME: 16:51 24 HR Interval Summary Free Text/Dictation No shortness of breath, dizziness Exam/Review of Systems Vital Signs Vitals Vital Signs Date Temp Pulse Resp B/P (MAP) Pulse Ox O2 O2 Flow FiO2 Time Delivery Rate 03/24/19 98.5 72 15 102/54 93 Room Air 13:56 (70) Intake and Output 03/23/19 03/23/19 03/24/19 1414:59 22:59 06:59 IntakeIntake Total 200 ml 500 ml 118 ml OutputOutput Total 900 ml 1200 ml BalanceBalance 200 ml -400 ml -1082 ml Exam Constitutional: alert, oriented Head: normocephalic Respiratory: other (Coarse breath sounds bilaterally, no wheezing) Cardiovascular: regular rate and rhythm (S1-S2 heard) Gastrointestinal: soft, non-tender, bowel sounds Extremities: other (No significant edema) Labs Result Diagram: 03/23/19 0606 03/23/19 0606 Results 24hrs Laboratory Tests Test 03/23/19 17:55 03/23/19 20:14 03/24/19 08:06 03/24/19 09:35 Bedside Glucose 127 133 115 121 Test 03/24/19 12:23 Bedside Glucose 131 Medications Medications Current Medications Atorvastatin Calcium (Lipitor) 10 mg QHS PO Last administered on 03/23/19at 20:17; Admin Dose 10 MG; Start 03/17/19 at 21:00 Carisoprodol (Soma) 350 mg HS PRN PO MUSCLE SPASMS; Start 03/16/19 at 22:30 Duloxetine HCl (Cymbalta) 60 mg BID PO Last administered on 03/24/19at 08:38; Admin Dose 60 MG; Start 03/17/19 at 09:00 Loratadine (Claritin) 10 mg DAILY PO Last administered on 03/24/19at 08:38; Admin Dose 10 MG; Start 03/17/19 at 09:00 Pantoprazole (Protonix Tab) 40 mg AC BREAKFAST PO Last administered on 03/24/19 08:38; Admin Dose 40 MG; Start 03/17/19 at 07:00 Linagliptin (Tradjenta) 5 mg DAILY PO Last administered on 03/24/19 08:38; Admin Dose 5 MG; Start 03/17/19 at 09:00 IV Flush (NS 3 ml) 3 ml PER PROTOCOL IV ; Start 03/16/19 at 22:30 Ondansetron HCl (Zofran Inj) 4 mg Q6H PRN IV NAUSEA/VOMITING; Start 03/16/19 at 22:30 Nitroglycerin (Nitroglycerin (Sl Tab) 0.4 Mg) 1 tab Q5M PRN SL .CHEST PAIN; Start 03/16/19 at 22:30 Acetaminophen (Tylenol Tab) 650 mg Q6H PRN PO .PAIN 1-3 OR TEMP; Start 03/16/19 at 22:30 Acetaminophen/ Hydrocodone Bitart ([place] (5/325)) 1 tab Q6H PRN PO .PAIN 4-6 Last administered on 03/23/19at 10:24; Admin Dose 1 TAB; Start 03/16/19 at 22:30 Acetaminophen/ Hydrocodone Bitart ([place] (5/325)) 2 tab Q6H PRN PO .PAIN 7-10; Start 03/16/19 at 22:30 Docusate Sodium (Colace) 100 mg Q12H PRN PO .CONSTIPATION; Start 03/16/19 at 22:30 Magnesium Hydroxide (Milk Of Mag) 30 ml DAILY PRN PO .CONSTIPATION; Start 03/16/19 at 22:30 Bisacodyl (Dulcolax Supp) 10 mg DAILY PRN [place] .CONSTIPATION; Start 03/16/19 at 22:30 Heparin Sodium (Porcine) (Heparin (5000 Units/1ml)) 5,000 unit Q12 SC Last administered on 03/24/19at 08:41; Admin Dose 5,000 UNIT; Start 03/17/19 at 09:00 Insulin Aspart (Novolog Insulin Pen) NOVOLOG *MILD* ALGORITHM WITH MEALS BEDTIME SC Last administered on 03/22/19at 17:22; Admin Dose 1 UNIT; Start 03/17/19 at 08:00 Miscellaneous Information 1 ea NOTE XX ; Start 03/17/19 at 08:00 Glucose (Glutose) 15 gm Q15M PRN PO DECREASED GLUCOSE; Start 03/17/19 at 08:00 Glucose (Glutose) 22.5 gm Q15M PRN PO DECREASED GLUCOSE; Start 03/17/19 at 08:00 Dextrose (D50w Syringe) 25 ml Q15M PRN IV DECREASED GLUCOSE; Start 03/17/19 at 08:00 Dextrose (D50w Syringe) 50 ml Q15M PRN IV DECREASED GLUCOSE; Start 03/17/19 at 08:00 Glucagon (Glucagen) 1 mg Q15M PRN IM DECREASED GLUCOSE; Start 03/17/19 at 08:00 Glucose (Glutose) 15 gm Q15M PRN BUCCAL DECREASED GLUCOSE; Start 03/17/19 at 08:00 Fluticasone Propionate (Flonase 0.05% Nasal) 2 spray DAILY NASAL Last administered on 03/24/19 09:37; Admin Dose 2 SPRAY; Start 03/17/19 at 10:00 Oxybutynin Chloride (Ditropan Xl) 5 mg DAILY PO Last administered on 03/24/19 09:37; Admin Dose 5 MG; Start 03/19/19 at 15:00 Quetiapine Fumarate (Seroquel) 12.5 mg QHS PO Last administered on 03/23/19at 20:16; Admin Dose 12.5 MG; Start 03/21/19 at 21:00 Metoprolol Succinate (Toprol Xl) 50 mg DAILY PO Last administered on 03/24/19 08:37; Admin Dose 50 MG; Start 03/22/19 at 09:00 Losartan Potassium (Cozaar) 25 mg DAILY PO Last administered on 03/24/19 08:37; Admin Dose 25 MG; Start 03/23/19 at 09:00 Pregabalin (Lyrica) 50 mg BID PO Last administered on 03/24/19 09:37; Admin Dose 50 MG; Start 03/23/19 at 09:00 Rishi Bertrand DO Mar 24, 2019 16:52
[2019-03-24] MEDS: QUETIAPINE 25 MG TAB PO SCH (20:29)
[2019-03-24] MEDS: ATORVASTATIN 10 MG TAB PO SCH (20:29)
[2019-03-24 20:44] VITALS: BP 107/77; PULSE 70; RESP 18
[2019-03-25 02:59] VITALS: BP 112/49; PULSE 83; RESP 18
[2019-03-25] MEDS: PANTOPRAZOLE (EC) 40 MG TAB PO SCH (06:30)
[2019-03-25 07:40] VITALS: BP 146/55; PULSE 65; RESP 15
[2019-03-25] MEDS: INSULIN ASPART [NOVOLOG] 3 ML PEN SC SCH ×4 (08:00→20:13)
[2019-03-25] MEDS: FLUTICASONE 0.05% 16 GM NAS SPRAY NASAL SCH (08:16)
[2019-03-25] MEDS: OXYBUTYNIN (XL) 5 MG TAB PO SCH (08:16)
[2019-03-25] MEDS: LINAGLIPTIN 5 MG TABLET PO SCH (08:17)
[2019-03-25] MEDS: PREGABALIN 50 MG CAP PO SCH ×2 (08:17→20:14)
[2019-03-25] MEDS: METOPROLOL (XL) 50 MG TAB PO SCH (08:17)
[2019-03-25] MEDS: DULOXETINE 30 MG CAP DR PO SCH ×2 (08:18→20:15)
[2019-03-25] MEDS: LORATADINE 10 MG TAB PO SCH (08:19)
[2019-03-25] MEDS: LOSARTAN 25 MG TAB PO SCH (08:19)
[2019-03-25] MEDS: HEPARIN 5,000 UNIT/1 ML VIAL SC SCH ×2 (08:22→20:17)
[2019-03-25] MEDS: HYDROCODONE/APAP (5/325) TAB PO PRN (12:36)
[2019-03-25 13:49] VITALS: BP 115/53; PULSE 78; RESP 15
--- NOTE | 2019-03-25 19:08 | CONS ---
Assessment/Plan Assessment/Plan Hospital Course (Demo Recall) Digoxin toxicity-resolved Acute kidney injury, improving Preserved ejection fraction Labile blood pressure History of atrial tachycardia Diabetes Patient presented with acute kidney injury, hyperkalemia and elevated digoxin level Renal function has improved Continue Toprol as heart rate and blood pressure permits Losartan dose recently decreased. Titrate as needed Consultation Date/Type/Reason Admit Date/Time Mar 16, 2019 at 19:44 Initial Consult Date Type of Consult Cardiology Date/Time of Note DATE: 03/25/19 TIME: 19:07 24 HR Interval Summary Free Text/Dictation no sob,palp,dizziness Exam/Review of Systems Vital Signs Vitals Vital Signs Date Temp Pulse Resp B/P (MAP) Pulse Ox O2 O2 Flow FiO2 Time Delivery Rate 03/25/19 97.3 78 15 115/53 100 Room Air 13:49 (73) Intake and Output 03/24/19 03/24/19 03/25/19 1515:00 23:00 07:00 IntakeIntake Total 240 ml BalanceBalance 240 ml Exam Constitutional: alert, oriented Head: normocephalic Respiratory: clear to auscultation, normal air movement Cardiovascular: regular rate and rhythm Gastrointestinal: soft, non-tender, bowel sounds Extremities: edema (no) Labs Result Diagram: 03/23/19 0606 03/23/19 0606 Results 24hrs Laboratory Tests Test 03/24/19 20:26 03/25/19 08:14 03/25/19 12:21 03/25/19 17:17 Bedside Glucose 151 97 178 113 Medications Medications Current Medications Atorvastatin Calcium (Lipitor) 10 mg QHS PO Last administered on 03/24/19at 20:29; Admin Dose 10 MG; Start 03/17/19 at 21:00 Carisoprodol (Soma) 350 mg HS PRN PO MUSCLE SPASMS; Start 03/16/19 at 22:30 Duloxetine HCl (Cymbalta) 60 mg BID PO Last administered on 03/25/19at 08:18; Admin Dose 60 MG; Start 03/17/19 at 09:00 Loratadine (Claritin) 10 mg DAILY PO Last administered on 03/25/19at 08:19; Admin Dose 10 MG; Start 03/17/19 at 09:00 Linagliptin (Tradjenta) 5 mg DAILY PO Last administered on 03/25/19at 08:17; Admin Dose 5 MG; Start 03/17/19 at 09:00 IV Flush (NS 3 ml) 3 ml PER PROTOCOL IV ; Start 03/16/19 at 22:30 Ondansetron HCl (Zofran Inj) 4 mg Q6H PRN IV NAUSEA/VOMITING; Start 03/16/19 at 22:30 Nitroglycerin (Nitroglycerin (Sl Tab) 0.4 Mg) 1 tab Q5M PRN SL .CHEST PAIN; Start 03/16/19 at 22:30 Acetaminophen (Tylenol Tab) 650 mg Q6H PRN PO .PAIN 1-3 OR TEMP; Start 03/16/19 at 22:30 Acetaminophen/ Hydrocodone Bitart ([place] (5/325)) 1 tab Q6H PRN PO .PAIN 4-6 Last administered on 03/23/19at 10:24; Admin Dose 1 TAB; Start 03/16/19 at 22:30 Acetaminophen/ Hydrocodone Bitart ([place] (5/325)) 2 tab Q6H PRN PO .PAIN 7-10 Last administered on 03/25/19at 12:36; Admin Dose 2 TAB; Start 03/16/19 at 22:30 Docusate Sodium (Colace) 100 mg Q12H PRN PO .CONSTIPATION; Start 03/16/19 at 22:30 Magnesium Hydroxide (Milk Of Mag) 30 ml DAILY PRN PO .CONSTIPATION; Start 03/16/19 at 22:30 Bisacodyl (Dulcolax Supp) 10 mg DAILY PRN [place] .CONSTIPATION; Start 03/16/19 at 22:30 Heparin Sodium (Porcine) (Heparin (5000 Units/1ml)) 5,000 unit Q12 SC Last administered on 03/25/19at 08:22; Admin Dose 5,000 UNIT; Start 03/17/19 at 09:00 Insulin Aspart (Novolog Insulin Pen) NOVOLOG *MILD* ALGORITHM WITH MEALS BEDTIME SC Last administered on 03/25/19at 12:35; Admin Dose 1 UNIT; Start 03/17/19 at 08:00 Miscellaneous Information 1 ea NOTE XX ; Start 03/17/19 at 08:00 Glucose (Glutose) 15 gm Q15M PRN PO DECREASED GLUCOSE; Start 03/17/19 at 08:00 Glucose (Glutose) 22.5 gm Q15M PRN PO DECREASED GLUCOSE; Start 03/17/19 at 08:00 Dextrose (D50w Syringe) 25 ml Q15M PRN IV DECREASED GLUCOSE; Start 03/17/19 at 08:00 Dextrose (D50w Syringe) 50 ml Q15M PRN IV DECREASED GLUCOSE; Start 03/17/19 at 08:00 Glucagon (Glucagen) 1 mg Q15M PRN IM DECREASED GLUCOSE; Start 03/17/19 at 08:00 Glucose (Glutose) 15 gm Q15M PRN BUCCAL DECREASED GLUCOSE; Start 03/17/19 at 08:00 Fluticasone Propionate (Flonase 0.05% Nasal) 2 spray DAILY NASAL Last administered on 03/25/19 08:16; Admin Dose 2 SPRAY; Start 03/17/19 at 10:00 Oxybutynin Chloride (Ditropan Xl) 5 mg DAILY PO Last administered on 03/25/19 08:16; Admin Dose 5 MG; Start 03/19/19 at 15:00 Quetiapine Fumarate (Seroquel) 12.5 mg QHS PO Last administered on 03/24/19at 20:29; Admin Dose 12.5 MG; Start 03/21/19 at 21:00 Metoprolol Succinate (Toprol Xl) 50 mg DAILY PO Last administered on 03/25/19 08:17; Admin Dose 50 MG; Start 03/22/19 at 09:00 Losartan Potassium (Cozaar) 25 mg DAILY PO Last administered on 03/25/19 08:19; Admin Dose 25 MG; Start 03/23/19 at 09:00 Pregabalin (Lyrica) 50 mg BID PO Last administered on 03/25/19 08:17; Admin Dose 50 MG; Start 03/23/19 at 09:00 Pantoprazole (Protonix Tab) 40 mg AC BREAKFAST PO Last administered on 03/25/19 06:30; Admin Dose 40 MG; Start 03/25/19 at 07:00 Rishi Bertrand DO Mar 25, 2019 19:08
[2019-03-25] MEDS: QUETIAPINE 25 MG TAB PO SCH (20:14)
[2019-03-25] MEDS: ATORVASTATIN 10 MG TAB PO SCH (20:15)
[2019-03-25 21:00] VITALS: BP 106/59; PULSE 73; RESP 18
--- NOTE | 2019-03-25 21:57 | PN ---
Date/Time of Note Date/Time of Note DATE: 03/25/19 TIME: 21:50 Assessment/Plan VTE Prophylaxis Risk score (from Nsg)>0 risk: 4 SCD applied (from Nsg): Yes Pharmacological prophylaxis: heparin Lines/Catheters IV Catheter Type (from Nrsg): [place] Urinary Cath still in place: No Assessment/Plan Problems: (1) Visual hallucinations Status: Resolved Comment: Lyrica likely cause of VH. Now resolved. Cont. quetiapine 12.5 mg nightly. Will monitor. Likely pt. not safe for self- care. Consider SNF vs. family care. (2) Frequent falls Status: Acute Comment: PT states pt. stable w/ walker but risk for falls w/o. Pt. admits does not use walker at home. Consider transfer to SNF if family agreeable or o/w should provide improved care at home. (3) Diabetes mellitus type 2 with complications Status: Chronic Comment: Excellent glycemic control. Cont. linagliptin (4) Hypertension Status: Chronic Comment: BP controlled. Cont. current regimen (5) Lumbar stenosis with neurogenic claudication Status: Chronic Comment: Lyrica weaned from 150 mg bid to 50 mg bid. Pt. tolerating w/o complaint of pain. (6) Hyperlipidemia Status: Chronic Comment: Cont. statin (7) Major depressive disorder, recurrent, in full remission Status: Chronic Comment: Cont. duloxetine 60 mg bid (8) Urge incontinence Status: Chronic Comment: Cont. oxybutynin (9) Allergic rhinitis Status: Chronic Comment: Cont. loratadine (10) Hypomagnesemia Status: Acute Comment: Recheck Mg level tomorrow (11) Acute renal insufficiency Status: Acute Comment: Last Cr increased again. Will recheck tomorrow. May need to hydrate again. Result Diagram: 03/23/19 0606 03/23/19 0606 Results 24hrs Laboratory Tests Test 03/25/19 08:14 03/25/19 12:21 03/25/19 17:17 03/25/19 20:13 Bedside Glucose 97 178 113 141 Subjective 24 Hr Interval Summary Constitutional: no complaints, improved Respiratory: no complaints Cardiovascular: no complaints Gastrointestinal: no complaints Genitourinary: no complaints Musculoskeletal: bone/joint pain (R shoulder blade) Neurologic: no complaints Psychological: other (denies further visual hallucinations) Exam/Review of Systems Exam Vitals VS - Last 72 Hours, by Label Date Temp Pulse Resp B/P (MAP) Pulse Ox O2 O2 Flow FiO2 Time Delivery Rate 03/25/19 97.3 78 15 115/53 100 Room Air 13:49 (73) 03/25/19 97.3 65 15 146/55 94 Room Air 07:40 (85) 03/25/19 98.3 83 18 112/49 95 02:59 (70) 03/24/19 98.2 70 18 107/77 95 20:44 (87) 03/24/19 98.5 72 15 102/54 93 Room Air 13:56 (70) 03/24/19 97.5 82 15 128/60 94 Room Air 08:09 (82) 03/24/19 98.1 73 18 115/58 92 02:43 (77) 03/24/19 98.0 76 19 124/58 93 00:00 (80) 03/23/19 97.8 87 18 108/53 94 20:00 (71) 03/23/19 98.0 82 18 127/60 95 Room Air 15:24 (82) 03/23/19 97.5 80 18 112/59 93 Room Air 11:16 (76) 03/23/19 98.3 85 18 112/61 93 Room Air 07:37 (78) 03/23/19 98.6 80 20 95/55 (68) 92 Room Air 04:41 03/23/19 98.3 70 18 111/54 94 Room Air 00:13 (73) Vital Signs Date Temp Pulse Resp B/P (MAP) Pulse Ox O2 O2 Flow FiO2 Time Delivery Rate 03/25/19 97.3 78 15 115/53 100 Room Air 13:49 (73) Intake and Output 03/24/19 03/24/19 03/25/19 1515:00 23:00 07:00 IntakeIntake Total 240 ml BalanceBalance 240 ml Constitutional: alert, oriented, well developed Psych: no complaints, nl mood/affect Respiratory: clear to auscultation, normal air movement Cardiovascular: regular rate and rhythm, nl pulses; No edema, No murmurs/extra sounds, No rub Gastrointestinal: soft, nl liver, spleen, non-tender, bowel sounds; No mass, No rebound or guarding Musculoskeletal: nl extremities to inspection Extremities: normal pulses; No cyanosis, No clubbing, No edema Neurological: DAY TREATMENT CLINICIAN/ART THERAPIST II-XII intact, nl mental status, nl speech, nl strength Additional Comments Bedside Glucose - 72 Hours Test 03/23/19 08:06 03/23/19 17:55 03/23/19 20:14 03/24/19 08:06 Bedside 122 127 133 115 Glucose mg/dL (70-220) mg/dL (70-220) mg/dL (70-220) mg/dL (70-220) Test 03/24/19 09:35 03/24/19 12:23 03/24/19 17:11 03/24/19 20:26 Bedside 121 131 109 151 Glucose mg/dL (70-220) mg/dL (70-220) mg/dL (70-220) mg/dL (70-220) Test 03/25/19 08:14 03/25/19 12:21 03/25/19 17:17 03/25/19 20:13 Bedside 97 178 113 141 Glucose mg/dL (70-220) mg/dL (70-220) mg/dL (70-220) mg/dL (70-220) Results Results 24hrs Laboratory Tests Test 03/25/19 08:14 03/25/19 12:21 03/25/19 17:17 03/25/19 20:13 Bedside Glucose 97 178 113 141 Medications Medication Current Medications Atorvastatin Calcium (Lipitor) 10 mg QHS PO Last administered on 03/25/19at 20:15; Admin Dose 10 MG; Start 03/17/19 at 21:00 Carisoprodol (Soma) 350 mg HS PRN PO MUSCLE SPASMS; Start 03/16/19 at 22:30 Duloxetine HCl (Cymbalta) 60 mg BID PO Last administered on 03/25/19at 20:15; Admin Dose 60 MG; Start 03/17/19 at 09:00 Loratadine (Claritin) 10 mg DAILY PO Last administered on 03/25/19at 08:19; Admin Dose 10 MG; Start 03/17/19 at 09:00 Linagliptin (Tradjenta) 5 mg DAILY PO Last administered on 03/25/19at 08:17; Admin Dose 5 MG; Start 03/17/19 at 09:00 IV Flush (NS 3 ml) 3 ml PER PROTOCOL IV ; Start 03/16/19 at 22:30 Ondansetron HCl (Zofran Inj) 4 mg Q6H PRN IV NAUSEA/VOMITING; Start 03/16/19 at 22:30 Nitroglycerin (Nitroglycerin (Sl Tab) 0.4 Mg) 1 tab Q5M PRN SL .CHEST PAIN; Start 03/16/19 at 22:30 Acetaminophen (Tylenol Tab) 650 mg Q6H PRN PO .PAIN 1-3 OR TEMP; Start 03/16/19 at 22:30 Acetaminophen/ Hydrocodone Bitart ([place] (5/325)) 1 tab Q6H PRN PO .PAIN 4-6 Last administered on 03/23/19at 10:24; Admin Dose 1 TAB; Start 03/16/19 at 22:30 Acetaminophen/ Hydrocodone Bitart ([place] (5/325)) 2 tab Q6H PRN PO .PAIN 7-10 Last administered on 03/25/19at 12:36; Admin Dose 2 TAB; Start 03/16/19 at 22:30 Docusate Sodium (Colace) 100 mg Q12H PRN PO .CONSTIPATION; Start 03/16/19 at 22:30 Magnesium Hydroxide (Milk Of Mag) 30 ml DAILY PRN PO .CONSTIPATION; Start 03/16/19 at 22:30 Bisacodyl (Dulcolax Supp) 10 mg DAILY PRN [place] .CONSTIPATION; Start 03/16/19 at 22:30 Heparin Sodium (Porcine) (Heparin (5000 Units/1ml)) 5,000 unit Q12 SC Last administered on 03/25/19at 20:17; Admin Dose 5,000 UNIT; Start 03/17/19 at 09:00 Insulin Aspart (Novolog Insulin Pen) NOVOLOG *MILD* ALGORITHM WITH MEALS BEDTIME SC Last administered on 03/25/19at 12:35; Admin Dose 1 UNIT; Start 03/17/19 at 08:00 Miscellaneous Information 1 ea NOTE XX ; Start 03/17/19 at 08:00 Glucose (Glutose) 15 gm Q15M PRN PO DECREASED GLUCOSE; Start 03/17/19 at 08:00 Glucose (Glutose) 22.5 gm Q15M PRN PO DECREASED GLUCOSE; Start 03/17/19 at 08:00 Dextrose (D50w Syringe) 25 ml Q15M PRN IV DECREASED GLUCOSE; Start 03/17/19 at 08:00 Dextrose (D50w Syringe) 50 ml Q15M PRN IV DECREASED GLUCOSE; Start 03/17/19 at 08:00 Glucagon (Glucagen) 1 mg Q15M PRN IM DECREASED GLUCOSE; Start 03/17/19 at 08:00 Glucose (Glutose) 15 gm Q15M PRN BUCCAL DECREASED GLUCOSE; Start 03/17/19 at 08:00 Fluticasone Propionate (Flonase 0.05% Nasal) 2 spray DAILY NASAL Last administered on 03/25/19at 08:16; Admin Dose 2 SPRAY; Start 03/17/19 at 10:00 Oxybutynin Chloride (Ditropan Xl) 5 mg DAILY PO Last administered on 03/25/19at 08:16; Admin Dose 5 MG; Start 03/19/19 at 15:00 Quetiapine Fumarate (Seroquel) 12.5 mg QHS PO Last administered on 03/25/19at 20:14; Admin Dose 12.5 MG; Start 03/21/19 at 21:00 Metoprolol Succinate (Toprol Xl) 50 mg DAILY PO Last administered on 03/25/19 08:17; Admin Dose 50 MG; Start 03/22/19 at 09:00 Losartan Potassium (Cozaar) 25 mg DAILY PO Last administered on 03/25/19at 08:19; Admin Dose 25 MG; Start 03/23/19 at 09:00 Pregabalin (Lyrica) 50 mg BID PO Last administered on 03/25/19at 20:14; Admin Dose 50 MG; Start 03/23/19 at 09:00 Pantoprazole (Protonix Tab) 40 mg AC BREAKFAST PO Last administered on 03/25/19at 06:30; Admin Dose 40 MG; Start 03/25/19 at 07:00 PASCUAL CORNELIUS MD Mar 25, 2019 21:57
[2019-03-26 01:46] VITALS: BP 110/62; PULSE 78; RESP 17
[2019-03-26] MEDS: HYDROCODONE/APAP (5/325) TAB PO PRN ×3 (03:29→20:42)
[2019-03-26] MEDS: PANTOPRAZOLE (EC) 40 MG TAB PO SCH (06:03)
[2019-03-26 07:58] VITALS: BP 117/57; PULSE 63; RESP 18
[2019-03-26] MEDS: INSULIN ASPART [NOVOLOG] 3 ML PEN SC SCH ×4 (08:00→20:49)
[2019-03-26] MEDS: PREGABALIN 50 MG CAP PO SCH ×2 (08:45→20:42)
[2019-03-26] MEDS: DULOXETINE 30 MG CAP DR PO SCH ×2 (08:45→20:42)
[2019-03-26] MEDS: LORATADINE 10 MG TAB PO SCH (08:46)
[2019-03-26] MEDS: FLUTICASONE 0.05% 16 GM NAS SPRAY NASAL SCH (08:46)
[2019-03-26] MEDS: METOPROLOL (XL) 50 MG TAB PO SCH (08:47)
[2019-03-26] MEDS: OXYBUTYNIN (XL) 5 MG TAB PO SCH (08:47)
[2019-03-26] MEDS: LOSARTAN 25 MG TAB PO SCH (08:47)
[2019-03-26] MEDS: LINAGLIPTIN 5 MG TABLET PO SCH (08:48)
[2019-03-26] MEDS: HEPARIN 5,000 UNIT/1 ML VIAL SC SCH ×2 (08:48→20:50)
[2019-03-26 14:00] VITALS: BP 122/61; PULSE 63; RESP 18
--- NOTE | 2019-03-26 17:13 | CONS ---
Assessment/Plan Assessment/Plan Hospital Course (Demo Recall) Digoxin toxicity-resolved Acute kidney injury, improving Preserved ejection fraction Labile blood pressure History of atrial tachycardia Diabetes Patient presented with acute kidney injury, hyperkalemia and elevated digoxin level Continue Toprol as heart rate and blood pressure permits Patient still complains of dizziness at times with ambulation. Blood pressure on the lower normal side. Will DC losartan We will supplement magnesium Consultation Date/Type/Reason Admit Date/Time Mar 16, 2019 at 19:44 Initial Consult Date Type of Consult Cardiology Date/Time of Note DATE: 03/26/19 TIME: 17:12 24 HR Interval Summary Free Text/Dictation Still complains of dizziness with ambulation at times, no palpitations, chest pain Exam/Review of Systems Vital Signs Vitals Vital Signs Date Temp Pulse Resp B/P (MAP) Pulse Ox O2 O2 Flow FiO2 Time Delivery Rate 03/26/19 98.2 63 18 117/57 96 Room Air 07:58 (77) Intake and Output 03/25/19 03/25/19 03/26/19 1515:00 23:00 07:00 IntakeIntake Total 460 ml BalanceBalance 460 ml Exam Constitutional: alert, oriented (No apparent distress) Head: normocephalic Respiratory: clear to auscultation, normal air movement Cardiovascular: regular rate and rhythm (S1-S2 heard) Gastrointestinal: soft, non-tender, bowel sounds Extremities: other (No edema) Labs Result Diagram: 03/26/19 0511 03/26/19 0511 Results 24hrs Laboratory Tests Test 03/25/19 17:17 03/25/19 20:13 03/26/19 05:11 03/26/19 08:15 Bedside Glucose 113 141 100 White Blood Count 5.9 # Red Blood Count 3.39 L Hemoglobin 9.7 L Hematocrit 31.6 L Mean Corpuscular 93.2 Volume Mean Corpuscular 28.6 L Hemoglobin Mean Corpuscular 30.7 L Hemoglobin Concent Red Cell 14.5 Distribution Width Platelet Count 301 Mean Platelet Volume 10.4 Immature 0.300 Granulocytes % Neutrophils % 60.1 Lymphocytes % 21.9 Monocytes % 13.1 H Eosinophils % 3.4 Basophils % 1.2 Nucleated Red Blood 0.0 Cells % Immature 0.020 Granulocytes # Neutrophils # 3.6 Lymphocytes # 1.3 Monocytes # 0.8 Eosinophils # 0.2 Basophils # 0.1 Nucleated Red Blood 0.0 Cells # Sodium Level 143 Potassium Level 5.3 H Chloride Level 105 Carbon Dioxide Level 31 Anion Gap 7 Blood Urea Nitrogen 44 H Creatinine 1.41 H Est Glomerular Filtrat Rate mL/min Glucose Level 122 Calcium Level 10.2 Magnesium Level 1.6 L Test 03/26/19 12:14 03/26/19 17:06 Bedside Glucose 180 173 Medications Medications Current Medications Atorvastatin Calcium (Lipitor) 10 mg QHS PO Last administered on 03/25/19 20:15; Admin Dose 10 MG; Start 03/17/19 at 21:00 Carisoprodol (Soma) 350 mg HS PRN PO MUSCLE SPASMS; Start 03/16/19 at 22:30 Duloxetine HCl (Cymbalta) 60 mg BID PO Last administered on 03/26/19 08:45; Admin Dose 60 MG; Start 03/17/19 at 09:00 Loratadine (Claritin) 10 mg DAILY PO Last administered on 03/26/19 08:46; Admin Dose 10 MG; Start 03/17/19 at 09:00 Linagliptin (Tradjenta) 5 mg DAILY PO Last administered on 03/26/19 08:48; Admin Dose 5 MG; Start 03/17/19 at 09:00 IV Flush (NS 3 ml) 3 ml PER PROTOCOL IV ; Start 03/16/19 at 22:30 Ondansetron HCl (Zofran Inj) 4 mg Q6H PRN IV NAUSEA/VOMITING; Start 03/16/19 at 22:30 Nitroglycerin (Nitroglycerin (Sl Tab) 0.4 Mg) 1 tab Q5M PRN SL .CHEST PAIN; Start 03/16/19 at 22:30 Acetaminophen (Tylenol Tab) 650 mg Q6H PRN PO .PAIN 1-3 OR TEMP; Start 03/16/19 at 22:30 Acetaminophen/ Hydrocodone Bitart ([place] (5/325)) 1 tab Q6H PRN PO .PAIN 4-6 Last administered on 03/26/19at 13:34; Admin Dose 1 TAB; Start 03/16/19 at 22:30 Acetaminophen/ Hydrocodone Bitart ([place] (5/325)) 2 tab Q6H PRN PO .PAIN 7-10 Last administered on 7/16/19at 03:29; Admin Dose 2 TAB; Start 03/16/19 at 22:30 Docusate Sodium (Colace) 100 mg Q12H PRN PO .CONSTIPATION Last administered on 03/26/19at 06:03; Admin Dose 100 MG; Start 03/16/19 at 22:30 Magnesium Hydroxide (Milk Of Mag) 30 ml DAILY PRN PO .CONSTIPATION; Start 03/16/19 at 22:30 Bisacodyl (Dulcolax Supp) 10 mg DAILY PRN [place] .CONSTIPATION; Start 03/16/19 at 22:30 Heparin Sodium (Porcine) (Heparin (5000 Units/1ml)) 5,000 unit Q12 SC Last administered on 03/26/19at 08:48; Admin Dose 5,000 UNIT; Start 03/17/19 at 09:00 Insulin Aspart (Novolog Insulin Pen) NOVOLOG *MILD* ALGORITHM WITH MEALS BEDTIME SC Last administered on 03/26/19at 12:30; Admin Dose 1 UNIT; Start 03/17/19 at 08:00 Miscellaneous Information 1 ea NOTE XX ; Start 03/17/19 at 08:00 Glucose (Glutose) 15 gm Q15M PRN PO DECREASED GLUCOSE; Start 03/17/19 at 08:00 Glucose (Glutose) 22.5 gm Q15M PRN PO DECREASED GLUCOSE; Start 03/17/19 at 08:00 Dextrose (D50w Syringe) 25 ml Q15M PRN IV DECREASED GLUCOSE; Start 03/17/19 at 08:00 Dextrose (D50w Syringe) 50 ml Q15M PRN IV DECREASED GLUCOSE; Start 03/17/19 at 08:00 Glucagon (Glucagen) 1 mg Q15M PRN IM DECREASED GLUCOSE; Start 03/17/19 at 08:00 Glucose (Glutose) 15 gm Q15M PRN BUCCAL DECREASED GLUCOSE; Start 03/17/19 at 08:00 Fluticasone Propionate (Flonase 0.05% Nasal) 2 spray DAILY NASAL Last administered on 03/26/19at 08:46; Admin Dose 2 SPRAY; Start 03/17/19 at 10:00 Oxybutynin Chloride (Ditropan Xl) 5 mg DAILY PO Last administered on 03/26/19at 08:47; Admin Dose 5 MG; Start 03/19/19 at 15:00 Quetiapine Fumarate (Seroquel) 12.5 mg QHS PO Last administered on 03/25/19at 20:14; Admin Dose 12.5 MG; Start 03/21/19 at 21:00 Metoprolol Succinate (Toprol Xl) 50 mg DAILY PO Last administered on 03/26/19 08:47; Admin Dose 50 MG; Start 03/22/19 at 09:00 Losartan Potassium (Cozaar) 25 mg DAILY PO Last administered on 03/26/19 08:47; Admin Dose 25 MG; Start 03/23/19 at 09:00 Pregabalin (Lyrica) 50 mg BID PO Last administered on 03/26/19 08:45; Admin Dose 50 MG; Start 03/23/19 at 09:00 Pantoprazole (Protonix Tab) 40 mg AC BREAKFAST PO Last administered on 03/26/19 06:03; Admin Dose 40 MG; Start 03/25/19 at 07:00 Rishi Bertrand DO Mar 26, 2019 17:13
--- NOTE | 2019-03-26 18:09 | PN ---
Date/Time of Note Date/Time of Note DATE: 03/26/19 TIME: 18:03 Assessment/Plan VTE Prophylaxis Risk score (from Ns)>0 risk: 4 SCD applied (from Ns): No SCD contraindicated: low risk/ambulating Pharmacological prophylaxis: heparin Lines/Catheters IV Catheter Type (from Nrs): Peripheral IV Urinary Cath still in place: No Assessment/Plan Problems: (1) Diabetes mellitus type 2 with complications Status: Chronic Comment: Good control. Cont. linagliptin. (2) Hypertension Status: Chronic Comment: Good control. Cont. current regimen (3) Hyperlipidemia Status: Chronic Comment: Cont. statin (4) Urge incontinence Status: Chronic Comment: Cont. oxybutynin (5) Lumbar stenosis with neurogenic claudication Status: Chronic Comment: Cont. lyrica at lower dose at which it seems to still be effective. Ambulate w/ walker. (6) Chronic kidney disease, stage III (moderate) Status: Chronic Comment: Cr more c/w chronic kidney disease. Initially normalized w/ hydration but it seems clear this patient is not capable of orally maintaining a level of hydration to maintain normal renal function. (7) Major depressive disorder, recurrent, in full remission Status: Chronic Comment: Cont. duloxetine 60 mg bid (8) Allergic rhinitis Status: Chronic Comment: Contr. loratadine (9) Hyperkalemia Status: Acute Comment: Likely due to losartan. Cardiology has d/c'ed (10) Hypomagnesemia Status: Acute Comment: recurrent. Replace Mg and recheck tomorrow. (11) Visual hallucinations Status: Resolved Comment: was likely due to high-dose lyrica (12) Digoxin toxicity Status: Resolved Qualifiers: Encounter type: initial encounter Injury intent: accidental or unintentional Qualified Codes: T46.0X1A - Poisoning by cardiac-stimulant glycosides and drugs of similar action, accidental (unintentional), initial encounter Cont Hosp Indication/DC Plan: Await placement in SNF Result Diagram: 03/26/1951003/26/19510 Results 24hrs Laboratory Tests Test 03/25/19 20:13 03/26/19 05:11 03/26/19 08:15 03/26/19 12:14 Bedside Glucose 141 100 180 White Blood Count 5.9 # Red Blood Count 3.39 L Hemoglobin 9.7 L Hematocrit 31.6 L Mean Corpuscular 93.2 Volume Mean Corpuscular 28.6 L Hemoglobin Mean Corpuscular 30.7 L Hemoglobin Concent Red Cell 14.5 Distribution Width Platelet Count 301 Mean Platelet Volume 10.4 Immature 0.300 Granulocytes % Neutrophils % 60.1 Lymphocytes % 21.9 Monocytes % 13.1 H Eosinophils % 3.4 Basophils % 1.2 Nucleated Red Blood 0.0 Cells % Immature 0.020 Granulocytes # Neutrophils # 3.6 Lymphocytes # 1.3 Monocytes # 0.8 Eosinophils # 0.2 Basophils # 0.1 Nucleated Red Blood 0.0 Cells # Sodium Level 143 Potassium Level 5.3 H Chloride Level 105 Carbon Dioxide Level 31 Anion Gap 7 Blood Urea Nitrogen 44 H Creatinine 1.41 H Est Glomerular Filtrat Rate mL/min Glucose Level 122 Calcium Level 10.2 Magnesium Level 1.6 L Test 03/26/19 17:06 Bedside Glucose 173 Subjective 24 Hr Interval Summary Constitutional: no complaints, improved Respiratory: no complaints Cardiovascular: no complaints Gastrointestinal: no complaints Genitourinary: no complaints Musculoskeletal: no complaints Neurologic: no complaints; No confusion Psychological: no complaints; No confusion Exam/Review of Systems Exam Vitals VS - Last 72 Hours, by Label Date Temp Pulse Resp B/P (MAP) Pulse Ox O2 O2 Flow FiO2 Time Delivery Rate 03/26/19 98.2 63 18 117/57 96 Room Air 07:58 (77) 03/26/19 98.4 78 17 110/62 95 01:46 (78) 03/25/19 98.0 73 18 106/59 95 Room Air 21:00 (75) 03/25/19 97.3 78 15 115/53 100 Room Air 13:49 (73) 03/25/19 97.3 65 15 146/55 94 Room Air 07:40 (85) 03/25/19 98.3 83 18 112/49 95 02:59 (70) 03/24/19 98.2 70 18 107/77 95 20:44 (87) 03/24/19 98.5 72 15 102/54 93 Room Air 13:56 (70) 03/24/19 97.5 82 15 128/60 94 Room Air 08:09 (82) 03/24/19 98.1 73 18 115/58 92 02:43 (77) 03/24/19 98.0 76 19 124/58 93 00:00 (80) 03/23/19 97.8 87 18 108/53 94 20:00 (71) Vital Signs Date Temp Pulse Resp B/P (MAP) Pulse Ox O2 O2 Flow FiO2 Time Delivery Rate 03/26/19 98.2 63 18 117/57 96 Room Air 07:58 (77) Intake and Output 03/25/19 03/25/19 03/26/19 1515:00 23:00 07:00 IntakeIntake Total 460 ml BalanceBalance 460 ml Constitutional: alert, oriented, well developed Psych: no complaints, nl mood/affect; No confusion, No other (no hallucinations) Respiratory: clear to auscultation, normal air movement Cardiovascular: regular rate and rhythm, nl pulses; No edema, No murmurs/extra sounds, No rub Gastrointestinal: soft, nl liver, spleen, non-tender, bowel sounds; No mass, No rebound or guarding Musculoskeletal: nl extremities to inspection Extremities: normal pulses; No cyanosis, No clubbing, No edema Neurological: FACILITY SERVICE ASSOCIATE II-XII intact, nl mental status, nl speech, nl strength Additional Comments Bedside Glucose - 72 Hours Test 03/23/19 20:14 03/24/19 08:06 03/24/19 09:35 03/24/19 12:23 Bedside 133 115 121 131 Glucose mg/dL (70-220) mg/dL (70-220) mg/dL (70-220) mg/dL (70-220) Test 03/24/19 17:11 03/24/19 20:26 03/25/19 08:14 03/25/19 12:21 Bedside 109 151 97 178 Glucose mg/dL (70-220) mg/dL (70-220) mg/dL (70-220) mg/dL (70-220) Test 03/25/19 17:17 03/25/19 20:13 03/26/19 08:15 03/26/19 12:14 Bedside 113 141 100 180 Glucose mg/dL (70-220) mg/dL (70-220) mg/dL (70-220) mg/dL (70-220) Test 03/26/19 17:06 Bedside 173 Glucose mg/dL (70-220) Results Results 24hrs Laboratory Tests Test 03/25/19 20:13 03/26/19 05:11 03/26/19 08:15 03/26/19 12:14 Bedside Glucose 141 100 180 White Blood Count 5.9 # Red Blood Count 3.39 L Hemoglobin 9.7 L Hematocrit 31.6 L Mean Corpuscular 93.2 Volume Mean Corpuscular 28.6 L Hemoglobin Mean Corpuscular 30.7 L Hemoglobin Concent Red Cell 14.5 Distribution Width Platelet Count 301 Mean Platelet Volume 10.4 Immature 0.300 Granulocytes % Neutrophils % 60.1 Lymphocytes % 21.9 Monocytes % 13.1 H Eosinophils % 3.4 Basophils % 1.2 Nucleated Red Blood 0.0 Cells % Immature 0.020 Granulocytes # Neutrophils # 3.6 Lymphocytes # 1.3 Monocytes # 0.8 Eosinophils # 0.2 Basophils # 0.1 Nucleated Red Blood 0.0 Cells # Sodium Level 143 Potassium Level 5.3 H Chloride Level 105 Carbon Dioxide Level 31 Anion Gap 7 Blood Urea Nitrogen 44 H Creatinine 1.41 H Est Glomerular Filtrat Rate mL/min Glucose Level 122 Calcium Level 10.2 Magnesium Level 1.6 L Test 03/26/19 17:06 Bedside Glucose 173 Medications Medication Current Medications Atorvastatin Calcium (Lipitor) 10 mg QHS PO Last administered on 03/25/19at 20:15; Admin Dose 10 MG; Start 03/17/19 at 21:00 Carisoprodol (Soma) 350 mg HS PRN PO MUSCLE SPASMS; Start 03/16/19 at 22:30 Duloxetine HCl (Cymbalta) 60 mg BID PO Last administered on 03/26/19at 08:45; Admin Dose 60 MG; Start 03/17/19 at 09:00 Loratadine (Claritin) 10 mg DAILY PO Last administered on 03/26/19at 08:46; Admin Dose 10 MG; Start 03/17/19 at 09:00 Linagliptin (Tradjenta) 5 mg DAILY PO Last administered on 03/26/19at 08:48; Admin Dose 5 MG; Start 03/17/19 at 09:00 IV Flush (NS 3 ml) 3 ml PER PROTOCOL IV ; Start 03/16/19 at 22:30 Ondansetron HCl (Zofran Inj) 4 mg Q6H PRN IV NAUSEA/VOMITING; Start 03/16/19 at 22:30 Nitroglycerin (Nitroglycerin (Sl Tab) 0.4 Mg) 1 tab Q5M PRN SL .CHEST PAIN; Start 03/16/19 at 22:30 Acetaminophen (Tylenol Tab) 650 mg Q6H PRN PO .PAIN 1-3 OR TEMP; Start 03/16/19 at 22:30 Acetaminophen/ Hydrocodone Bitart ([place] (5/325)) 1 tab Q6H PRN PO .PAIN 4-6 Last administered on 03/26/19at 13:34; Admin Dose 1 TAB; Start 03/16/19 at 22:30 Acetaminophen/ Hydrocodone Bitart ([place] (5/325)) 2 tab Q6H PRN PO .PAIN 7-10 Last administered on 03/26/19at 03:29; Admin Dose 2 TAB; Start 03/16/19 at 22:30 Docusate Sodium (Colace) 100 mg Q12H PRN PO .CONSTIPATION Last administered on 03/26/19at 06:03; Admin Dose 100 MG; Start 03/16/19 at 22:30 Magnesium Hydroxide (Milk Of Mag) 30 ml DAILY PRN PO .CONSTIPATION; Start 03/16/19 at 22:30 Bisacodyl (Dulcolax Supp) 10 mg DAILY PRN [place] .CONSTIPATION; Start 03/16/19 at 22:30 Heparin Sodium (Porcine) (Heparin (5000 Units/1ml)) 5,000 unit Q12 SC Last administered on 03/26/19at 08:48; Admin Dose 5,000 UNIT; Start 03/17/19 at 09:00 Insulin Aspart (Novolog Insulin Pen) NOVOLOG *MILD* ALGORITHM WITH MEALS BEDTIME SC Last administered on 03/26/19at 17:18; Admin Dose 1 UNIT; Start 03/17/19 at 08:00 Miscellaneous Information 1 ea NOTE XX ; Start 03/17/19 at 08:00 Glucose (Glutose) 15 gm Q15M PRN PO DECREASED GLUCOSE; Start 03/17/19 at 08:00 Glucose (Glutose) 22.5 gm Q15M PRN PO DECREASED GLUCOSE; Start 03/17/19 at 08:00 Dextrose (D50w Syringe) 25 ml Q15M PRN IV DECREASED GLUCOSE; Start 03/17/19 at 08:00 Dextrose (D50w Syringe) 50 ml Q15M PRN IV DECREASED GLUCOSE; Start 03/17/19 at 08:00 Glucagon (Glucagen) 1 mg Q15M PRN IM DECREASED GLUCOSE; Start 03/17/19 at 08:00 Glucose (Glutose) 15 gm Q15M PRN BUCCAL DECREASED GLUCOSE; Start 03/17/19 at 08:00 Fluticasone Propionate (Flonase 0.05% Nasal) 2 spray DAILY NASAL Last administered on 03/26/19 08:46; Admin Dose 2 SPRAY; Start 03/17/19 at 10:00 Oxybutynin Chloride (Ditropan Xl) 5 mg DAILY PO Last administered on 03/26/19 08:47; Admin Dose 5 MG; Start 03/19/19 at 15:00 Quetiapine Fumarate (Seroquel) 12.5 mg QHS PO Last administered on 03/25/19 20:14; Admin Dose 12.5 MG; Start 03/21/19 at 21:00 Metoprolol Succinate (Toprol Xl) 50 mg DAILY PO Last administered on 03/26/19 08:47; Admin Dose 50 MG; Start 03/22/19 at 09:00 Pregabalin (Lyrica) 50 mg BID PO Last administered on 03/26/19at 08:45; Admin Dose 50 MG; Start 03/23/19 at 09:00 Pantoprazole (Protonix Tab) 40 mg AC BREAKFAST PO Last administered on 03/26/19 06:03; Admin Dose 40 MG; Start 03/25/19 at 07:00 Magnesium Sulfate 3 gm/Dextrose 106 ml @ 35.333 mls/ hr ONCE ONCE IVPB ; Start 03/26/19 at 18:30; Stop 03/26/19 at 21:29 PASCUAL CORNELIUS MD Mar 26, 2019 18:09
[2019-03-26] MEDS ORDERED: MAGNESIUM SULFATE 3 GM in DEXTROSE 5% 100 ML IVPB ONE (18:30)
[2019-03-26 19:25] VITALS: BP 127/58; PULSE 79; RESP 18
[2019-03-26] MEDS: QUETIAPINE 25 MG TAB PO SCH (20:42)
[2019-03-26] MEDS: ATORVASTATIN 10 MG TAB PO SCH (20:42)
[2019-03-27 02:32] VITALS: BP 132/76; PULSE 81; RESP 19
[2019-03-27] MEDS: PANTOPRAZOLE (EC) 40 MG TAB PO SCH (06:16)
[2019-03-27 07:40] VITALS: BP 164/72; PULSE 68; RESP 15
[2019-03-27] MEDS: INSULIN ASPART [NOVOLOG] 3 ML PEN SC SCH ×4 (08:00→21:00)
[2019-03-27] MEDS ORDERED: MAGNESIUM SULFATE 3 GM in DEXTROSE 5% 100 ML IVPB ONE (09:00)
[2019-03-27] MEDS: OXYBUTYNIN (XL) 5 MG TAB PO SCH (09:11)
[2019-03-27] MEDS: PREGABALIN 50 MG CAP PO SCH ×2 (09:11→20:24)
[2019-03-27] MEDS: LORATADINE 10 MG TAB PO SCH (09:11)
[2019-03-27] MEDS: FLUTICASONE 0.05% 16 GM NAS SPRAY NASAL SCH (09:11)
[2019-03-27] MEDS: HEPARIN 5,000 UNIT/1 ML VIAL SC SCH ×2 (09:12→20:25)
[2019-03-27] MEDS: LINAGLIPTIN 5 MG TABLET PO SCH (09:13)
[2019-03-27] MEDS: METOPROLOL (XL) 50 MG TAB PO SCH (09:13)
[2019-03-27] MEDS: DULOXETINE 30 MG CAP DR PO SCH ×2 (09:13→20:24)
[2019-03-27] MEDS: HYDROCODONE/APAP (5/325) TAB PO PRN (09:29)
[2019-03-27 13:46] VITALS: BP 156/72; PULSE 72; RESP 16
[2019-03-27 20:00] VITALS: BP 109/58; PULSE 65; RESP 19
--- NOTE | 2019-03-27 20:16 | PN ---
Date/Time of Note Date/Time of Note DATE: 03/27/19 TIME: 20:10 Assessment/Plan VTE Prophylaxis Risk score (from Nsg)>0 risk: 4 SCD applied (from Nsg): No SCD contraindicated: low risk/ambulating Pharmacological prophylaxis: heparin Lines/Catheters IV Catheter Type (from Nrs): Peripheral IV Urinary Cath still in place: No Assessment/Plan Problems: (1) Visual hallucinations Status: Resolved Comment: Cont. quetiapine 12.5 mg nightly and lower dose of lyrica (2) Digoxin toxicity Status: Resolved Qualifiers: Encounter type: initial encounter Injury intent: accidental or unintentional Qualified Codes: T46.0X1A - Poisoning by cardiac-stimulant glycosides and drugs of similar action, accidental (unintentional), initial encounter (3) Generalized weakness Status: Resolved Comment: Cont. PT (4) Chronic kidney disease, stage III (moderate) Status: Chronic Comment: Recheck Cr tomorrow (5) Diabetes mellitus type 2 with complications Status: Chronic Comment: Good control. Cont. linagliptin (6) Hypertension Status: Chronic Comment: Good control. Cont. current regimen (7) Lumbar stenosis with neurogenic claudication Status: Chronic Comment: Cont. low-dose lyrica (8) Hyperlipidemia Status: Chronic Comment: Cont. statin (9) Major depressive disorder, recurrent, in full remission Status: Chronic Comment: Cont. duloxetine (10) Urge incontinence Status: Chronic Comment: Cont. oxybutynin (11) Frequent falls Status: Acute Comment: Cont. PT. Needs walker. SNF placement (12) Allergic rhinitis Status: Chronic Comment: Cont. loratadine (13) Hypomagnesemia Status: Acute Comment: Recheck tomorrow (14) Hyperkalemia Status: Acute Comment: Recheck tomorrow Result Diagram: 03/26/19 0511 03/27/19 0459 Results 24hrs Laboratory Tests Test 03/26/19 20:47 03/27/19 04:59 03/27/19 08:40 03/27/19 12:44 Bedside Glucose 97 101 113 Sodium Level 144 Potassium Level 5.0 Chloride Level 104 Carbon Dioxide Level 33 H Anion Gap 7 Blood Urea Nitrogen 40 H Creatinine 1.23 H Est Glomerular Filtrat Rate mL/min Glucose Level 117 Calcium Level 10.1 Magnesium Level 1.5 L Test 03/27/19 16:54 Bedside Glucose 128 Subjective 24 Hr Interval Summary Constitutional: no complaints, improved Respiratory: no complaints Cardiovascular: no complaints Gastrointestinal: constipation (few BM's since hospitalization) Genitourinary: no complaints Musculoskeletal: no complaints Neurologic: no complaints Exam/Review of Systems Exam Vitals VS - Last 72 Hours, by Label Date Temp Pulse Resp B/P (MAP) Pulse Ox O2 O2 Flow FiO2 Time Delivery Rate 03/27/19 98.2 72 16 156/72 92 Room Air 13:46 (100) 03/27/19 97.5 68 15 164/72 93 Room Air 07:40 (102) 03/27/19 98.7 81 19 132/76 92 02:32 (94) 03/26/19 98.0 79 18 127/58 91 Room Air 19:25 (81) 03/26/19 98.1 63 18 122/61 94 Room Air 14:00 (81) 03/26/19 98.2 63 18 117/57 96 Room Air 07:58 (77) 03/26/19 98.4 78 17 110/62 95 01:46 (78) 03/25/19 98.0 73 18 106/59 95 Room Air 21:00 (75) 03/25/19 97.3 78 15 115/53 100 Room Air 13:49 (73) 03/25/19 97.3 65 15 146/55 94 Room Air 07:40 (85) 03/25/19 98.3 83 18 112/49 95 02:59 (70) 03/24/19 98.2 70 18 107/77 95 20:44 (87) Vital Signs Date Temp Pulse Resp B/P (MAP) Pulse Ox O2 O2 Flow FiO2 Time Delivery Rate 03/27/19 98.2 72 16 156/72 92 Room Air 13:46 (100) Intake and Output 03/26/19 03/26/19 03/27/19 1515:00 23:00 07:00 IntakeIntake Total 200 ml 200 ml 106 ml BalanceBalance 200 ml 200 ml 106 ml Constitutional: alert, oriented, frail Psych: no complaints, nl mood/affect Respiratory: clear to auscultation, normal air movement Cardiovascular: regular rate and rhythm, nl pulses; No edema, No murmurs/extra sounds, No rub Gastrointestinal: soft, nl liver, spleen, non-tender, bowel sounds; No mass, No rebound or guarding Musculoskeletal: nl extremities to inspection, nl gait and stance Extremities: normal pulses; No cyanosis, No clubbing, No edema Neurological: LE[employer] II-XII intact, nl mental status, nl speech, nl strength Additional Comments Bedside Glucose - 72 Hours Test 03/24/19 20:26 03/25/19 08:14 03/25/19 12:21 03/25/19 17:17 Bedside 151 97 178 113 Glucose mg/dL (70-220) mg/dL (70-220) mg/dL (70-220) mg/dL (70-220) Test 03/25/19 20:13 03/26/19 08:15 03/26/19 12:14 03/26/19 17:06 Bedside 141 100 180 173 Glucose mg/dL (70-220) mg/dL (70-220) mg/dL (70-220) mg/dL (70-220) Test 03/26/19 20:47 03/27/19 08:40 03/27/19 12:44 03/27/19 16:54 Bedside 97 101 113 128 Glucose mg/dL (70-220) mg/dL (70-220) mg/dL (70-220) mg/dL (70-220) Results Results 24hrs Laboratory Tests Test 03/26/19 20:47 03/27/19 04:59 03/27/19 08:40 03/27/19 12:44 Bedside Glucose 97 101 113 Sodium Level 144 Potassium Level 5.0 Chloride Level 104 Carbon Dioxide Level 33 H Anion Gap 7 Blood Urea Nitrogen 40 H Creatinine 1.23 H Est Glomerular Filtrat Rate mL/min Glucose Level 117 Calcium Level 10.1 Magnesium Level 1.5 L Test 03/27/19 16:54 Bedside Glucose 128 Medications Medication Current Medications Atorvastatin Calcium (Lipitor) 10 mg QHS PO Last administered on 03/26/19at 20:42; Admin Dose 10 MG; Start 03/17/19 at 21:00 Carisoprodol (Soma) 350 mg HS PRN PO MUSCLE SPASMS; Start 03/16/19 at 22:30 Duloxetine HCl (Cymbalta) 60 mg BID PO Last administered on 03/27/19at 09:13; Admin Dose 60 MG; Start 03/17/19 at 09:00 Loratadine (Claritin) 10 mg DAILY PO Last administered on 03/27/19at 09:11; Admin Dose 10 MG; Start 03/17/19 at 09:00 Linagliptin (Tradjenta) 5 mg DAILY PO Last administered on 03/27/19at 09:13; Admin Dose 5 MG; Start 03/17/19 at 09:00 IV Flush (NS 3 ml) 3 ml PER PROTOCOL IV ; Start 03/16/19 at 22:30 Ondansetron HCl (Zofran Inj) 4 mg Q6H PRN IV NAUSEA/VOMITING; Start 03/16/19 at 22:30 Nitroglycerin (Nitroglycerin (Sl Tab) 0.4 Mg) 1 tab Q5M PRN SL .CHEST PAIN; Start 03/16/19 at 22:30 Acetaminophen (Tylenol Tab) 650 mg Q6H PRN PO .PAIN 1-3 OR TEMP; Start 03/16/19 at 22:30 Acetaminophen/ Hydrocodone Bitart (Dahinda (5/325)) 1 tab Q6H PRN PO .PAIN 4-6 Last administered on 03/27/19at 09:29; Admin Dose 1 TAB; Start 03/16/19 at 22:30 Acetaminophen/ Hydrocodone Bitart (Dahinda (5/325)) 2 tab Q6H PRN PO .PAIN 7-10 Last administered on 03/26/19at 03:29; Admin Dose 2 TAB; Start 03/16/19 at 22:30 Docusate Sodium (Colace) 100 mg Q12H PRN PO .CONSTIPATION Last administered on 03/26/19at 06:03; Admin Dose 100 MG; Start 03/16/19 at 22:30 Magnesium Hydroxide (Milk Of Mag) 30 ml DAILY PRN PO .CONSTIPATION; Start 03/16/19 at 22:30 Bisacodyl (Dulcolax Supp) 10 mg DAILY PRN MS .CONSTIPATION; Start 03/16/19 at 22:30 Heparin Sodium (Porcine) (Heparin (5000 Units/1ml)) 5,000 unit Q12 SC Last administered on 03/27/19at 09:12; Admin Dose 5,000 UNIT; Start 03/17/19 at 09:00 Insulin Aspart (Novolog Insulin Pen) NOVOLOG *MILD* ALGORITHM WITH MEALS BEDTIME SC Last administered on 03/26/19at 17:18; Admin Dose 1 UNIT; Start 03/17/19 at 08:00 Miscellaneous Information 1 ea NOTE XX ; Start 03/17/19 at 08:00 Glucose (Glutose) 15 gm Q15M PRN PO DECREASED GLUCOSE; Start 03/17/19 at 08:00 Glucose (Glutose) 22.5 gm Q15M PRN PO DECREASED GLUCOSE; Start 03/17/19 at 08:00 Dextrose (D50w Syringe) 25 ml Q15M PRN IV DECREASED GLUCOSE; Start 03/17/19 at 08:00 Dextrose (D50w Syringe) 50 ml Q15M PRN IV DECREASED GLUCOSE; Start 03/17/19 at 08:00 Glucagon (Glucagen) 1 mg Q15M PRN IM DECREASED GLUCOSE; Start 03/17/19 at 08:00 Glucose (Glutose) 15 gm Q15M PRN BUCCAL DECREASED GLUCOSE; Start 03/17/19 at 08:00 Fluticasone Propionate (Flonase 0.05% Nasal) 2 spray DAILY NASAL Last administered on 03/27/19at 09:11; Admin Dose 2 SPRAY; Start 03/17/19 at 10:00 Oxybutynin Chloride (Ditropan Xl) 5 mg DAILY PO Last administered on 03/27/19 09:11; Admin Dose 5 MG; Start 03/19/19 at 15:00 Quetiapine Fumarate (Seroquel) 12.5 mg QHS PO Last administered on 03/26/19at 20:42; Admin Dose 12.5 MG; Start 03/21/19 at 21:00 Metoprolol Succinate (Toprol Xl) 50 mg DAILY PO Last administered on 03/27/19at 09:13; Admin Dose 50 MG; Start 03/22/19 at 09:00 Pregabalin (Lyrica) 50 mg BID PO Last administered on 03/27/19 09:11; Admin D ose 50 MG; Start 03/23/19 at 09:00 Pantoprazole (Protonix Tab) 40 mg AC BREAKFAST PO Last administered on 03/27/19at 06:16; Admin Dose 40 MG; Start 03/25/19 at 07:00 PASCUAL CORNELIUS MD Mar 27, 2019 20:16
[2019-03-27] MEDS: ATORVASTATIN 10 MG TAB PO SCH (20:23)
[2019-03-27] MEDS: QUETIAPINE 25 MG TAB PO SCH (20:24)
[2019-03-28 02:00] VITALS: BP 115/64; PULSE 69; RESP 18
[2019-03-28] MEDS: PANTOPRAZOLE (EC) 40 MG TAB PO SCH (06:05)
[2019-03-28 07:19] VITALS: BP 154/60; PULSE 62; RESP 18
[2019-03-28] MEDS: INSULIN ASPART [NOVOLOG] 3 ML PEN SC SCH ×2 (08:00→12:00)
[2019-03-28] MEDS: LINAGLIPTIN 5 MG TABLET PO SCH (08:38)
[2019-03-28] MEDS: METOPROLOL (XL) 50 MG TAB PO SCH (08:38)
[2019-03-28] MEDS: LORATADINE 10 MG TAB PO SCH (08:38)
[2019-03-28] MEDS: OXYBUTYNIN (XL) 5 MG TAB PO SCH (08:38)
[2019-03-28] MEDS: PREGABALIN 50 MG CAP PO SCH (08:38)
[2019-03-28] MEDS: DULOXETINE 30 MG CAP DR PO SCH (08:39)
[2019-03-28] MEDS: FLUTICASONE 0.05% 16 GM NAS SPRAY NASAL SCH (08:39)
[2019-03-28] MEDS: HEPARIN 5,000 UNIT/1 ML VIAL SC SCH (08:41)
--- NOTE | 2019-03-28 12:37 | DS ---
Date/Time of Note Date/Time of Note DATE: 03/28/19 TIME: 12:29 Discharge Summary Admission/Discharge Info Admit Date/Time Mar 16, 2019 at 19:44 Discharge Date/Time 03/28/2019 Discharge Diagnosis Digoxin toxicity; altered mental status; diabetes mellitus type 2; hy perlipidemia; lumbar spinal stenosis with radiculopathy; acute kidney injury; bladder prolapse; vaginal prolapse; diabetic peripheral neuropathy; fluid and electrolyte disturbances with hypercalcemia and hyperkalemia and hypomagnesemia- resolved; chronic kidney disease stage III; hyperlipidemia; diastolic dysfunction-grade 1 Patient Condition: Fair Consults Etiology-Dr. Bertrand; psychiatry-Dr. Maynard Procedures EKG; CT scan brain;IMPRESSION: No intracranial hemorrhage or skull fracture. Atrophy. White matter disease compatible with chronic small vessel ischemia. No mass or evidence of acute transcortical infarct. Left maxillary sinusitis. echocardiogram;Conclusions: Normal left ventricular systolic function. Normal left ventricular cavity size. Mild concentric left ventricular hypertrophy. Ejection fraction is visually estimated at 65 %. Tissue Doppler/Mitral Doppler indices are consistent with impaired relaxation (Stage I diastolic dysfunction). Normal right ventricular size. Normal right ventricular systolic function. The left atrium is normal in size. The right atrium is normal in size. Trace mitral regurgitation. Mild mitral stenosis. No significant aortic stenosis or insufficiency. There is mild tricuspid regurgitation. Normal pericardium with no significant pericardial effusion. Hx of Present Illness HPI There is an 88-year-old female who presents to the emergency room complaining of generalized weakness for approximately 2 weeks. The patient is now having increasing falls while at home. She lives at home alone. The patient is now had 3 falls in the past 24 to 48 hours. She states that she hit her head but did not lose consciousness. The patient does not take anticoagulants. She has chronic right hip pain that is unchanged. She denies any chest pain or shortness of breath no dysuria urgency or frequency. Primary care physician told her to come to the emergency room today. Hx of Present Illness 88 y/o C F w/ h/o T2DM, HTN, hyperlipidemia, depression, allergic rhinitis, PUD, atrial tachycardia, acute renal failure, anemia, leg ulcer, cellulitis, MRSA (+), in [facility] until last several weeks when she began to experience gradual decline. Increase in falling at home. Intermittently confused. Yesterday daughter called and stated pt. was altered and hallucinating. Recommended to bring pt. to ER. In ER pt. not hallucinating or confused. However, w/ h/o recent falls it was recommended pt. be admitted for PT, possible ARU vs. SNF care. However, subsequently it was found that digoxin level was 3.8 (ULN 2.0). Pt. upgraded to tele and has remained in ER waiting for bed space. Hx of Present Illness This is an 88-year-old female with past medical history of atrial tachycardia, labile blood pressure who presents with alterations in mental status and falls. History is obtained from the patient as well as ER doctor and nursing staff. Th ere is question regarding altered mental status. I spoke to your doctor, patient was ambulating in the hallway to the bathroom with assistance. Patient denies any chest pain, shortness of breath or palpitations. She did have some dizziness yesterday but this has since resolved. 12 point review of systems was performed with all pertinent positives and negatives mentioned above and all else is negative Reason for consult: VISUAL HALLUCINATION History of present illness Patient is 88-year-old female with past medical history of DM, HTN, hyperlipidemia, allergic rhinitis, PUD, atrial tachycardia, acute renal failure, anemia, leg ulcer, and cellulitis. [id number] evaluation patient's is talking to herself, responding to internal stimuli, patient states fat I standing at the jaw and talking to her she got very anxious . Staff reports she has been increasingly anxious and also talking to herself. She would benefit from additional inpatient stay to rule out delirium. Mini-Mental status exam done and patient scored 20/30 Hospital Course 88-year-old female admitted with digoxin toxicity and multiple falls. She has now stabilized but during the course of her treatment was developing an altered mental status. She is returned towards baseline. However she is not at a state where she is safe for discharge on her own. Arrangements have been made for placement in an extended care facility which will be done today. She will be followed up there go through rehab will make long-term determinations about whether she ever becomes safe for her home environment. Home Meds Reported Medications Loratadine* (Loratadine*) 10 Mg Tablet, 10 MG PO DAILY, #30 TAB 10/17/17 Carisoprodol* (Carisoprodol*) 350 Mg Tablet, 350 MG PO HS PRN for MUSCLE SPASMS, TAB 10/17/17 Digoxin* (Digitek*) 125 Mcg Tablet, 0.125 MG PO DAILY, TAB 10/17/17 Ferrous Gluconate (Iron) Unknown Strength Tablet, 1 TAB PO DAILY, TAB 10/17/17 Pregabalin* (Lyrica*) 150 Mg Capsule, 150 MG PO BID, CAP 10/17/17 Pantoprazole* (Pantoprazole*) 40 Mg Tablet.dr, 40 MG PO AC BREAKFAST, TAB 10/17/17 Duloxetine Hcl* (Duloxetine Hcl*) 60 Mg Capsule.dr, 60 MG PO BID, #30 CAP 10/17/17 Atorvastatin Calcium (Atorvastatin Calcium) 10 Mg Tablet, 10 MG PO QHS, #30 TAB 10/17/17 Atenolol* (Atenolol*) 25 Mg Tablet, 25 MG PO DAILY, #30 TAB 18 Losartan Potassium* (Losartan Potassium*) 100 Mg Tablet, 100 MG PO DAILY, TAB 10/17/17 Sitagliptin* (Januvia*) 100 Mg Tablet, 100 MG PO BID, #30 TAB 18 Metformin Hcl* (Metformin Hcl*) 1,000 Mg Tablet, 1000 MG PO WITH BREAKFAST DINNE, #60 TAB 10/17/17 Follow-up Plan To ECF please Primary Care Provider Harish Larsen MD Time spent on discharge: > 30 minutes Pending Labs Laboratory Tests Test 03/27/19 12:44 03/27/19 16:54 03/27/19 20:23 03/28/19 05:12 Bedside 113 128 158 Glucose mg/dL (70-220) mg/dL (70-220) mg/dL (70-220) Sodium Level 141 mmol/L (135-14 4) Potassium 4.3 Level mmol/L (3.5-5. 1) Chloride Level 102 mmol/L (97-110 ) Carbon Dioxide 30 Level mmol/L (21-31) Anion Gap 9 (5-13) Blood Urea 32 Nitrogen mg/dl (7-20) Creatinine 0.98 mg/dl (0.44-1. 00) Est Glomerular mL/min (>60) Filtrat Rate mL/min Glucose Level 110 mg/dl (70-220) Calcium Level 9.9 mg/dl (8.4-10. 2) Magnesium 1.7 Level mg/dl (1.7-2.5 ) Test 03/28/19 08:30 Bedside 104 Glucose mg/dL (70-220) Copies To: CC: Rishi Bertrand DO; NATALYA MAYNARD NP; HARISH LARSEN MD ; JENISE DEE MD Mar 28, 2019 12:37
[2019-03-28] MEDS: HYDROCODONE/APAP (5/325) TAB PO PRN (13:41)
== END 2019-03-28 14:00 | DRG 918 ==
LOC: E/R 16:56 → TEL 19:44 → CANRESERV 20:17 → EDBEDREQSVC 21:24 → EDBEDREQ 21:24 → 5EC 03-24 02:20
PROVIDERS: ADMIT Internal Medicine; ATTEND Internal Medicine
DX: T46.0X1A Poisoning by cardiac-stimulant glycosides and drugs of similar action, accidental (unintentional), initial encounter (principal); N17.9 Acute kidney failure, unspecified; F33.3 Major depressive disorder, recurrent, severe with psychotic symptoms; R29.6 Repeated falls; R53.1 Weakness; R41.82 Altered mental status, unspecified; R44.1 Visual hallucinations; E11.22 Type 2 diabetes mellitus with diabetic chronic kidney disease; E86.0 Dehydration; E87.5 Hyperkalemia; E83.52 Hypercalcemia; E78.5 Hyperlipidemia, unspecified; E83.42 Hypomagnesemia; E11.42 Type 2 diabetes mellitus with diabetic polyneuropathy; I12.9 Hypertensive chronic kidney disease with stage 1 through stage 4 chronic kidney disease, or unspecified chronic kidney disease; J30.9 Allergic rhinitis, unspecified; J01.00 Acute maxillary sinusitis, unspecified; M48.062 Spinal stenosis, lumbar region with neurogenic claudication; M54.16 Radiculopathy, lumbar region; N18.3 Chronic kidney disease, stage 3 (moderate); N28.9 Disorder of kidney and ureter, unspecified; N39.41 Urge incontinence; S49.92XA Unspecified injury of left shoulder and upper arm, initial encounter; W18.30XA Fall on same level, unspecified, initial encounter; Y92.009 Unspecified place in unspecified non-institutional (private) residence as the place of occurrence of the external cause; Z79.84 Long term (current) use of oral hypoglycemic drugs
CPT/HCPCS: 36415; 70450; 71045; 73060; 80048; 80053; 80061; 80162; 81001; 82962; 83036; 83735; 84443; 84484; 85025; 93005; 93306; 97110; 97116; 97162; 97530; J1644; J1815; J2060; J3475; J7030